=== PATIENT | female | born 1995 | race Hispanic/Latino ===

== ENCOUNTER 2017-11-24 23:32 | Emergency (ER) | payer OTHER, SELFPAY ==
[2017-11-25] MEDS ORDERED: ONDANSETRON 4 MG/2 ML VIAL ONE (00:32)
[2017-11-25 00:41] LABS: Absolute Lymphocytes (CBC) 1.4 K/uL (0.7-4.9); Absolute Monocytes 0.9 K/uL (0.1-1.3); Basophils % 0.4 % (0-1.3); Eosinophils % 0.5 % (0-4.4); Hematocrit 44.1 % (36.0-45.0); Lymphocytes % 7.4 % (15.3-44.8); MCV 88.5 fL (80-100); MPV 7.6 fL (7.6-11.3); Monocytes % 4.7 % (3.3-12.3); RBC Red Blood Cell Count 4.98 M/uL (3.86-4.86)
[2017-11-25 00:54] LABS: Urine Bacteria <20 /HPF (<20); Urine RBC <5 /HPF (NONE SEEN)
[2017-11-25 00:54] LABS: Potassium 3.8 mEq/L (3.6-5.0)
[2017-11-25 00:55] LABS: Urine Culture Reflex Order NOT NEEDED; Urine Mucus HEAVY /HPF (NONE SEEN)
[2017-11-25 01:00] LABS: Albumin 4.3 g/dL (3.2-5.5); Bilirubin Direct 0.1 mg/dL (0-0.2); Bilirubin Total 0.4 mg/dL (0.3-1.2); Protein, Total 8.1 g/dL (6.0-8.3)
[2017-11-25 01:21] LABS: Urine Blood 1+ (NEG); Urine Glucose NEGATIVE (NEG); Urine Protein NEGATIVE (NEG); Urine pH 6.5 (5.0-7.0)
--- NOTE | 2017-11-25 02:37 | ER ---
Nurse's Notes [facility] Name: Rolanda Santiago Age: 22 yrs Sex: Female : 1995 Arrival Date: 11/24/2017 Time: 23:33 Bed 23 Private MD: Diagnosis: Viral infection, unspecified Presentation: 11/24 23:47 Presenting complaint: Patient states: that she has swollen and sore throat, chills, fc weakness, nausea and vomiting, Also has diarrhea and fever. All started yesterday. Transition of care: patient was not received from another setting of care. Onset of symptoms was November 23, 2017. Risk Assessment: Do you want to hurt yourself or someone else? Patient reports no desire to harm self or others. Care prior to arrival: None. 23:47 Method Of Arrival: Ambulatory 23:47 Acuity: LAURA 3 23:52 Initial Sepsis Screen: Does the patient meet any 2 criteria? HR > 90 bpm. Yes Does the fc patient have a suspected source of infection? No. Patient's initial sepsis screen is negative. 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 - Social history:: Smoking status: Patient/guardian denies using tobacco, Patient uses alcohol, occasionally. Patient/guardian denies using street drugs. - Ebola Screening: : Patient negative for fever greater than or equal to 101.5 degrees Fahrenheit, and additional compatible Ebola Virus Disease symptoms Patient denies exposure to infectious person Patient denies travel to an Ebola-affected area in the 21 days before illness onset. Screenin/30 00:37 Abuse screen: Denies threats or abuse. Denies injuries from another. Nutritional lp1 screening: No deficits noted. Tuberculosis screening: No symptoms or risk factors identified. Fall Risk None identified. Assessment: 00:36 General: Appears in no apparent distress. Behavior is calm, cooperative, appropriate lp1 for age. Pain: Complains of pain in suprapubic area, head Pain currently is 8 out of 10 on a pain scale. Quality of pain is described as crampy. Neuro: Level of Consciousness is awake, alert, obeys commands. Cardiovascular: Patient's skin is warm and dry. Respiratory: Respiratory effort is even, unlabored, Breath sounds are clear bilaterally. GI: Abdomen is non-distended, Bowel sounds present X 4 quads. Reports diarrhea, nausea, vomiting. : Denies burning with urination. EENT: No signs and/or symptoms were reported regarding the EENT system. Derm: Skin is pink, warm \T\ dry. Musculoskeletal: Circulation, motion, and sensation intact. 01:30 Reassessment: Patient appears in no apparent distress at this time. Patient resting, lp1 eyes closed, respirations unlabored. 02:30 Reassessment: Patient appears in no apparent distress at this time. Patient is alert, lp1 oriented x 3, equal unlabored respirations, skin warm/dry/pink. Vital Signs: 11/24 23:49 BP 127 / 86; Pulse 112; Resp 16; Temp 98.7(O); Pulse Ox 99% on R/A; Weight 90.72 kg fc (R); Height 5 ft. 2 in. (157.48 cm) (R); Pain 9/10; 11/25 00:36 BP 126 / 79; Pulse 93; Resp 16; Pulse Ox 99% on R/A; lp1 02:30 BP 111 / 76; Pulse 85; Resp 18; Pulse Ox 99% on R/A; lp1 11/24 23:49 Body Mass Index 36.58 (90.72 kg, 157.48 cm) ED Course: 11/24 23:33 Patient arrived in ED. al2 23:48 Triage completed. fc 23:52 Arm band placed on Patient placed in an exam room, on a stretcher. fc 23:58 Irvin Padilla MD is Attending Physician. rn 23:58 Laureano Ortez PA is PHCP. jr8 11/25 00:06 Micheline Hayward, ANDRES is Primary Nurse. lp1 00:35 Urine collected: clean catch specimen, clear. Inserted saline lock: 20 gauge in right lp1 forearm, using aseptic technique. Blood collected. 00:36 Patient has correct armband on for positive identification. Placed in gown. Bed in low lp1 position. Call light in reach. Pulse ox on. NIBP on. 01:[address] via wheelchair. cw1 01:59 CT Abd/Pelvis - W/Contrast In Process Unspecified. EDMS 02:47 No provider procedures requiring assistance completed. IV discontinued, No lp1 redness/swelling at site. Pressure dressing applied. Administered Medications: 00:35 Drug: Zofran 4 mg Route: IVP; Site: right forearm; lp1 01:30 Follow up: Response: Nausea is decreased lp1 Outcome: 02:37 Discharge ordered by MD. sheffield 02:47 Discharged to home ambulatory. lp1 02:47 Condition: good 02:47 Discharge instructions given to patient, Instructed on discharge instructions, follow up and referral plans. medication usage, Demonstrated understanding of instructions, follow-up care, medications, Prescriptions given X 2. 02:48 Patient left the ED. lp1 Signatures: Dispatcher [employer] EDMS Mitzi Saenz, RN RN Irvin Lopes MD MD rn Woodley, Crystal cw1 Micheline Hayward RN RN lp1 Laureano Ortez PA PA jr8 Elena Márquez
--- NOTE | 2017-11-25 02:38 | EDPHYS ---
Physician Documentation [facility] Name: Rolanda Santiago Age: 22 yrs Sex: Female : 1995 Arrival Date: 11/24/2017 Time: 23:33 Bed 23 Private MD: ED Physician Irvin Padilla HPI: 11/25 00:06 This 22 yrs old Female presents to ER via Ambulatory with complaints of Fever, jr8 Vomiting. 00:06 The patient reports fever, not measured (subjective). Onset: The symptoms/episode jr8 began/occurred acutely, yesterday. Modifying factors: there are no obvious modifying factors. Associated signs and symptoms: Pertinent positives: abdominal pain, diarrhea, sore throat, vomiting. Severity of symptoms: At their worst the symptoms were moderate in the emergency department the symptoms are unchanged. The patient has not experienced similar symptoms in the past. The patient has not recently seen a physician. 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 - Social history:: Smoking status: Patient/guardian denies using tobacco, Patient uses alcohol, occasionally. Patient/guardian denies using street drugs. - Ebola Screening: : Patient negative for fever greater than or equal to 101.5 degrees Fahrenheit, and additional compatible Ebola Virus Disease symptoms Patient denies exposure to infectious person Patient denies travel to an Ebola-affected area in the 21 days before illness onset. ROS: 11/25 00:06 Eyes: Negative for injury, pain, redness, and discharge, Neck: Negative for injury, jr8 pain, and swelling, Cardiovascular: Negative for chest pain, palpitations, and edema, Respiratory: Negative for shortness of breath, cough, wheezing, and pleuritic chest pain, Back: Negative for injury and pain, MS/Extremity: Negative for injury and deformity, Skin: Negative for injury, rash, and discoloration, Neuro: Negative for headache, weakness, numbness, tingling, and seizure. Constitutional: Positive for fever. ENT: Positive for sore throat. Abdomen/GI: Positive for abdominal pain, nausea, vomiting, and diarrhea, Negative for abdominal distension, anorexia, dysphagia, hematemesis, black/tarry stool, rectal pain, rectal bleeding, bowel incontinence, flatulence. Exam: 00:06 Eyes: Pupils equal round and reactive to light, extra-ocular motions intact. Lids and jr8 lashes normal. Conjunctiva and sclera are non-icteric and not injected. Cornea within normal limits. Periorbital areas with no swelling, redness, or edema. Neck: Trachea midline, no thyromegaly or masses palpated, and no cervical lymphadenopathy. Supple, full range of motion without nuchal rigidity, or vertebral point tenderness. No Meningismus. Cardiovascular: Regular rate and rhythm with a normal S1 and S2. No gallops, murmurs, or rubs. Normal PMI, no JVD. No pulse deficits. Respiratory: Lungs have equal breath sounds bilaterally, clear to auscultation and percussion. No rales, rhonchi or wheezes noted. No increased work of breathing, no retractions or nasal flaring. Back: No spinal tenderness. No costovertebral tenderness. Full range of motion. Skin: Warm, dry with normal turgor. Normal color with no rashes, no lesions, and no evidence of cellulitis. MS/ Extremity: Pulses equal, no cyanosis. Neurovascular intact. Full, normal range of motion. Neuro: Awake and alert, GCS 15, oriented to person, place, time, and situation. Cranial nerves II-XII grossly intact. Motor strength 5/5 in all extremities. Sensory grossly intact. Cerebellar exam normal. Normal gait. 00:06 ENT: External ear(s): are unremarkable, Ear canal(s): are normal, clear, TM's: are normal, no evidence of bulging, no dullness, no erythema, no fluid levels, no hemotympanum, no rupture, normal bony landmarks, normal mobility, Nose: External nose: no obvious acute abnormality, Nasal septum: is midline, Nasal mucosa: moist, Turbinates: are normal, Mouth: Lips: moist, Oral mucosa: pink and intact, moist, Gums: pink, Tongue: is moist, Posterior pharynx: Airway: patent, Tonsils: bilaterally enlarged, with erythema, no exudate, no ulcerations, Uvula: midline, non-edematous, no erythema, swelling, is not appreciated, erythema, that is mild. 00:06 Abdomen/GI: Inspection: abdomen appears normal, Bowel sounds: active, all quadrants, Palpation: soft, in all quadrants, mild abdominal tenderness, in the suprapubic area, right lower quadrant and left lower quadrant, mass, is not appreciated, rebound tenderness, is not appreciated, voluntary guarding, is not appreciated, involuntary guarding, is not appreciated, no appreciated organomegaly, Indicators: McBurney's point is not tender, Bose's sign is negative, Rovsing's sign is negative, Liver: no appreciated palpable abnormalities, tenderness, is not appreciated. Vital Signs: 11/24 23:49 BP 127 / 86; Pulse 112; Resp 16; Temp 98.7(O); Pulse Ox 99% on R/A; Weight 90.72 kg fc (R); Height 5 ft. 2 in. (157.48 cm) (R); Pain 9/10; 11/25 00:36 BP 126 / 79; Pulse 93; Resp 16; Pulse Ox 99% on R/A; lp1 02:30 BP 111 / 76; Pulse 85; Resp 18; Pulse Ox 99% on R/A; lp1 11/24 23:49 Body Mass Index 36.58 (90.72 kg, 157.48 cm) fc MDM: 11/24 23:58 Patient medically screened. jr8 11/25 02:36 Data reviewed: vital signs, nurses notes, lab test result(s), radiologic studies, CT jr8 scan, and as a result, I will discharge patient. Data interpreted: Pulse oximetry: on room air is 99 %. Interpretation: normal. Counseling: I had a detailed discussion with the patient and/or guardian regarding: the historical points, exam findings, and any diagnostic results supporting the discharge/admit diagnosis, lab results, radiology results, the need for outpatient follow up, a family practitioner, to return to the emergency department if symptoms worsen or persist or if there are any questions or concerns that arise at home. 11/25 00:05 Order name: Urine Microscopic Only; Complete Time: :8 11/25 00:05 Order name: Basic Metabolic Panel; Complete Time: 8 11/25 00:05 Order name: CBC with Diff; Complete Time: 8 11/25 00:05 Order name: Creatinine for Radiology; Complete Time: 01:8 11/25 00:05 Order name: Hepatic Function; Complete Time: : jr8 11/25 00:05 Order name: Lipase; Complete Time: :11/25 00:05 Order name: Urine Test (obtain specimen); Complete Time: 00:35 8 11/25 00:05 Order name: IV Saline Lock; Complete Time: 00:35 jr8 11/25 00:05 Order name: Strep; Complete Time: : jr8 11/25 00:35 Order name: Urine Dipstick--Ancillary (enter results); Complete Time: eb 11/25 00:35 Order name: Urine --Ancillary (enter results); Complete Time: : eb 11/25 00:52 Order name: Throat Culture [facility] 11/25 01:05 Order name: CT Abd/Pelvis - W/Contrast jr 11/25 00:05 Order name: Labs collected and sent; Complete Time: 00:8 11/25 00:05 Order name: Urine Dipstick-Ancillary (obtain specimen); Complete Time: 00:36 Administered Medications: 00:35 Drug: Zofran 4 mg Route: IVP; Site: right forearm; lp1 01:30 Follow up: Response: Nausea is decreased lp1 Disposition: 06:52 Co-signature as Attending Physician, Irvin Padilla MD. rn Disposition: 11/25/17 02:37 Discharged to Home. Impression: Viral infection, unspecified. - Condition is Stable. - Discharge Instructions: Viral Infections. - Prescriptions for Zofran 4 mg Oral Tablet - take 1 tablet by ORAL route every 12 hours As needed; 20 tablet. Tessalon Perles 100 mg Oral Capsule - take 1 capsule by ORAL route every 8 hours As needed; 15 capsule. - Medication Reconciliation Form, Thank You Letter, Antibiotic Education, Prescription Opioid Use form. - Follow up: Private Physician; When: 2 - 3 days; Reason: Recheck today's complaints, Continuance of care, Re-evaluation by your physician. - Problem is new. - Symptoms have improved. - Notes: Rest Push fluids Signatures: Dispatcher [employer] EDKY Mitzi Saenz RN RN fc Nieto, Roman, MD MD rn Pena, Laura, RN RN lp1 Laureano Ortez PA PA jr8 Corrections: (The following items were deleted from the chart) 02:48 02:37 11/25/2017 02:37 Discharged to Home. Impression: Viral infection, unspecified. lp1 Condition is Stable. Forms are Medication Reconciliation Form, Thank You Letter, Antibiotic Education, Prescription Opioid Use. Follow up: Private Physician; When: 2 - 3 days; Reason: Recheck today's complaints, Continuance of care, Re-evaluation by your physician. Problem is new. Symptoms have improved. jr8
--- NOTE | 2017-11-25 07:23 | RAD REPORT ---
EXAM DESCRIPTION: CT - Abdomen Pelvis W Contrast - 11/25/2017 6:14 am CLINICAL HISTORY: Abdominal pain with nausea. Vomiting COMPARISON: 2013 TECHNIQUE: Computed axial tomography of the abdomen pelvis was obtained. 100 cc Isovue-300 was admin istered intravenously. Oral contrast was not requested which limits evaluation of bowel. A preliminary report was generated by [employer] and reviewed prior to this dictation All CT scans are performed using dose optimization technique as appropriate and may include automated exposure control or mA/KV adjustment according to patient size. FINDINGS: The liver, spleen, pancreas, adrenal and kidneys appear unremarkable. There is no evidence of diverticulitis. The appendix is normal A 15 millimeter right ovarian cyst is irregularly shaped and likely has recently ruptured. There is a small amount of adjacent free fluid. IMPRESSION: A 15 millimeter right ovarian cyst is irregularly shaped and likely has recently rupture d. There is a small amount of adjacent free fluid.
== END 2017-11-25 02:48 | disposition home or self-care (01) ==
LOC: ER 23:32
DX: B34.9 Viral infection, unspecified (principal)
CPT/HCPCS: 36415; 74177; 80048; 80076; 81003; 81015; 81025; 83690; 85025; 87070; 87081; 96374; 99284; J2405; Q9967

== ENCOUNTER 2017-12-14 19:45 | Emergency (ER) | payer SELFPAY ==
[2017-12-14] MEDS ORDERED: NA CHLORIDE 0.9% 1,000 ML ONE (20:07)
[2017-12-14 20:22] LABS: Absolute Lymphocytes (CBC) 2.8 K/uL (0.7-4.9); Absolute Monocytes 0.8 K/uL (0.1-1.3); Absolute Neutrophil 8.9 K/uL (1.8-8.0); Basophils % 0.4 % (0-1.3); Eosinophils % 1.7 % (0-4.4); Hematocrit 39.8 % (36.0-45.0); Lymphocytes % 22.1 % (15.3-44.8); MCH 29.6 pg (27.0-35.0); MCV 87.9 fL (80-100); MPV 7.9 fL (7.6-11.3); Monocytes % 6.3 % (3.3-12.3); RBC Red Blood Cell Count 4.53 M/uL (3.86-4.86)
[2017-12-14 20:35] LABS: Bicarbonate 24 mEq/L (21-31); Glucose Level 96 mg/dL (65-120); Potassium 3.5 mEq/L (3.6-5.0); Sodium Level 136 mEq/L (135-145)
[2017-12-14 20:36] LABS: BUN Blood Urea Nitrogen 12 mg/dL (6-20)
--- NOTE | 2017-12-14 20:45 | RAD REPORT ---
EXAM DESCRIPTION: US - Transvaginal Study Probe - 12/14/2017 8:36 pm CLINICAL HISTORY: ABD CRAMPING, COMPARISON: TRANSVAGINAL STUDY PROBE dated 05/17/2014; Abdomen Pelvis W Contrast dated 11/25/2017 FINDINGS: A single oval-shaped gestational sac is seen within the uterus. Within the sac is a yolk s ac measuring 3 mm. No embryo is yet seen. Normal decidual reaction is seen around the sac Maternal adnexa showed no worrisome finding. Normal Doppler flow is seen to both ovaries. IMPRESSION: Single live early intrauterine gestation as detailed above.Follow-up study may be consid ered in 10-12 days for followup surveillance.
[2017-12-14] MEDS ORDERED: POTASSIUM 25 MEQ EFFERV TAB ONE (21:36)
--- NOTE | 2017-12-14 22:18 | ER ---
Nurse's Notes [facility] Name: Rolanda Santiago Age: 22 yrs Sex: Female : 1995 Arrival Date: 12/14/2017 Time: 19:47 Bed 13 Private MD: Diagnosis: related conditions, unspecified, first trimester-Lower Abdomen pain Presentation: 12/14 19:50 Presenting complaint: Patient states: "I have been cramping in my lower stomach, I bs1 spotted a couple days ago and I have been feeling nauseous and vomiting.". Transition of care: patient was not received from another setting of care. Onset of symptoms was December 11, 2017. Risk Assessment: Do you want to hurt yourself or someone else? Patient reports no desire to harm self or others. Initial Sepsis Screen: Does the patient meet any 2 criteria? No. Patient's initial sepsis screen is negative. Does the patient have a suspected source of infection? No. Patient's initial sepsis screen is negative. Care prior to arrival: None. 19:50 Method Of Arrival: Ambulatory bs1 19:50 Acuity: LAURA 3 bs1 Triage Assessment: 22:00 General: Behavior is calm, cooperative. 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 - Social history:: Smoking status: Patient/guardian denies using tobacco. - Ebola Screening: : Patient negative for fever greater than or equal to 101.5 degrees Fahrenheit, and additional compatible Ebola Virus Disease symptoms Patient denies exposure to infectious person. Screenin:22 Abuse screen: Denies threats or abuse. Denies injuries from another. Nutritional bs1 screening: No deficits noted. Tuberculosis screening: No symptoms or risk factors identified. Fall Risk None identified. Assessment: 20:19 General: Appears in no apparent distress. uncomfortable. Pain: Complains of pain in bs1 bilateral lower abdomen Pain radiates to bilateral flank. Neuro: Level of Consciousness is awake, alert, obeys commands, Oriented to person, place, time, situation, Appropriate for age. Cardiovascular: Denies chest pain, shortness of breath, Heart tones S1 S2 present Capillary refill < 3 seconds Patient's skin is warm and dry. Respiratory: Airway is patent Trachea midline Respiratory effort is even, unlabored, Breath sounds are clear bilaterally. GI: Abdomen is round non-distended, Bowel sounds present X 4 quads. Abdomen is tender to palpation in right lower quadrant and left lower quadrant Reports lower abdominal pain, cramping, nausea, vomiting, Patient currently denies diarrhea. : Reports pain in bilateral flank(s). EENT: No signs and/or symptoms were reported regarding the EENT system. Derm: Skin is intact, Skin is pink, warm \\T\\ dry. normal. Musculoskeletal: Circulation, motion, and sensation intact. Capillary refill < 3 seconds, Range of motion:. Musculoskeletal: Range of motion: intact in all extremities. 21:45 Reassessment: Patient appears in no apparent distress at this time. Patient and/or bs1 family updated on plan of care and expected duration. Pain level reassessed. Patient is alert, oriented x 3, equal unlabored respirations, skin warm/dry/pink. 23:00 Reassessment: No changes from previously documented assessment. Patient and/or family bs1 updated on plan of care and expected duration. Pain level reassessed. Patient is alert, oriented x 3, equal unlabored respirations, skin warm/dry/pink. Patient states feeling better. Patient states symptoms have improved. 12/15 00:00 Reassessment: Patient appears in no apparent distress at this time. Patient is alert, bs1 oriented x 3, equal unlabored respirations, skin warm/dry/pink. Patient denies pain at this time. 00:05 Reassessment: No reaction noted from Rhogam injection. bs1 Vital Signs: 12/14 20:17 BP 113 / 91; Pulse 79; Resp 15; Temp 98.8(O); Pulse Ox 100% on R/A; Weight 101.2 kg; bs1 Height 5 ft. 3 in. (160.02 cm); Pain 5/10; 21:00 BP 112 / 68; Pulse 78; Resp 16; Pulse Ox 100% on R/A; bs1 22:00 BP 116 / 82; Pulse 74; Resp 14; Pulse Ox 100% on R/A; bs1 23:00 BP 114 / 66; Pulse 80; Resp 16; Temp 98(O); Pulse Ox 100% on R/A; Pain 0/10; bs1 12/15 00:00 BP 114 / 63; Pulse 72; Resp 15; Temp 98(O); Pulse Ox 99% on R/A; bs1 12/14 20:17 Body Mass Index 39.52 (101.20 kg, 160.02 cm) bs1 ED Course: 12/14 19:47 Patient arrived in ED. am2 19:52 Chicho Gilmore MD is Attending Physician. nohelia 19:53 Chicho Merrill PA is PHCP. cp 20:00 Patient has correct armband on for positive identification. Placed in gown. Bed in low bs1 position. Call light in reach. Side rails up X 1. Pulse ox on. NIBP on. 20:00 Inserted saline lock: 22 gauge in right antecubital area, using aseptic technique. bs1 Blood collected. 20:12 Melissa Jenkins, RN is Primary Nurse. bs1 20:16 Triage completed. bs1 20:22 Arm band placed on right wrist. bs1 20:36 Ultrasound completed. Patient tolerated well. aa4 20:36 US Transvaginal Study (Probe) In Process Unspecified. EDMS 12/15 00:06 No provider procedures requiring assistance completed. IV discontinued, bleeding bs1 controlled, No redness/swelling at site. Pressure dressing applied. Administered Medications: 12/14 20:13 Drug: NS 0.9% 1000 ml Route: IV; Rate: 1 bolus; Site: right antecubital; jd3 12/15 00:12 Follow up: IV Status: Completed infusion bs1 12/14 21:41 Drug: Potassium Effervescent Tablet 25 mEq Route: PO; bs1 23:34 Follow up: Response: No adverse reaction bs1 23:32 Drug: Rho D Immune Globulin 300 mcg Route: IM; Site: right deltoid; bs1 12/15 00:11 Follow up: Response: No adverse reaction bs1 Outcome: 12/14 22:18 Discharge ordered by . cp 12/15 00:08 Discharged to home ambulatory. bs1 Condition: stable Discharge instructions given to patient, Instructed on discharge instructions, follow up and referral plans. medication usage, Demonstrated understanding of instructions, follow-up care, medications, Prescriptions given X 1. 00:11 Patient left the ED. bs1 Signatures: Dispatcher [employer] EDChicho Nicole MD MD cha Frazier, Amanda aa4 Chicho Merrill PA PA cp Moreno, Amanda am2 Ryan Plata RN RN jd3 Melissa Jenkins RN RN bs1 Corrections: (The following items were deleted from the chart) 12/14 23:39 20:17 BP 113 / 91; Pulse 79bpm; Resp 15bpm; Pulse Ox 100% RA; Temp 98.8F Oral; Pain bs1 11/05; bs1
--- NOTE | 2017-12-14 22:18 | EDPHYS ---
Physician Documentation [facility] Name: Rolanda Santiago Age: 22 yrs Sex: Female : 1995 Arrival Date: 12/14/2017 Time: 19:47 Bed 13 Private MD: ED Physician Chicho Gilmore HPI: 12/14 20:02 This 22 yrs old Female presents to ER via Unassigned with complaints of cp Abdominal Pain - Preg unknown gestation. 20:02 The patient presents with abdominal pain in the lower abdomen. Onset: The cp symptoms/episode began/occurred 3 day(s) ago. 21:56 Patient denies any current spotting but reports vaginal spotting few days ago. 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 - Social history:: Smoking status: Patient/guardian denies using tobacco. - Ebola Screening: : Patient negative for fever greater than or equal to 101.5 degrees Fahrenheit, and additional compatible Ebola Virus Disease symptoms Patient denies exposure to infectious person. ROS: 20:05 Constitutional: Negative for body aches, chills, fever, poor PO intake. cp 20:05 Eyes: Negative for injury, pain, redness, and discharge. cp 20:05 Cardiovascular: Negative for chest pain, edema, palpitations. cp 20:05 Respiratory: Negative for cough, shortness of breath, wheezing. 20:05 Abdomen/GI: Positive for abdominal pain, Negative for vomiting, diarrhea, constipation, black/tarry stool, rectal bleeding. 20:05 Back: Negative for pain at rest, pain with movement. 20:05 Skin: Negative for cellulitis, rash. 20:05 Neuro: Negative for altered mental status, headache, weakness. 20:05 All other systems are negative. Exam: 20:15 Constitutional: The patient appears in no acute distress, alert, awake, non-toxic, well cp developed, well nourished. 20:15 Head/Face: Normocephalic, atraumatic. cp 20:15 Eyes: Periorbital structures: appear normal, Pupils: equal, round, and reactive to light and accomodation, Conjunctiva: normal, no exudate, no injection, Sclera: no appreciated abnormality, Lids and lashes: appear normal, bilaterally. 20:15 ENT: External ear(s): are unremarkable, Nose: is normal, Mouth: is normal, Posterior pharynx: is normal, airway is patent, no erythema, no exudate. 20:15 Neck: ROM/movement: is normal, is supple, without pain, no range of motions limitations, no meningismus, no nuchal rigidity. 20:15 Chest/axilla: Inspection: normal, Palpation: is normal, no crepitus, no tenderness. 20:15 Cardiovascular: Rate: normal, Rhythm: regular. 20:15 Respiratory: the patient does not display signs of respiratory distress, Respirations: cp normal, labored breathing, is not present, accessory muscle usage, is absent, Breath sounds: are clear throughout, no decreased breath sounds, no stridor, no wheezing. 20:15 Abdomen/GI: Inspection: abdomen appears normal, Bowel sounds: active, all quadrants, cp Palpation: abdomen is soft and non-tender, in all quadrants, rebound tenderness, is not appreciated, voluntary guarding, is not appreciated, involuntary guarding, is not appreciated. 20:15 Back: pain, is absent, ROM is normal. 20:15 : CVA tenderness, is absent. 20:15 Skin: cellulitis, is not appreciated, no rash present. Vital Signs: 20:17 BP 113 / 91; Pulse 79; Resp 15; Temp 98.8(O); Pulse Ox 100% on R/A; Weight 101.2 kg; bs1 Height 5 ft. 3 in. (160.02 cm); Pain 5/10; 21:00 BP 112 / 68; Pulse 78; Resp 16; Pulse Ox 100% on R/A; bs1 22:00 BP 116 / 82; Pulse 74; Resp 14; Pulse Ox 100% on R/A; bs1 23:00 BP 114 / 66; Pulse 80; Resp 16; Temp 98(O); Pulse Ox 100% on R/A; Pain 0/10; bs1 12/15 00:00 BP 114 / 63; Pulse 72; Resp 15; Temp 98(O); Pulse Ox 99% on R/A; bs1 12/14 20:17 Body Mass Index 39.52 (101.20 kg, 160.02 cm) bs1 MDM: 12/14 19:52 Patient medically screened. [facility] 22:15 Data reviewed: vital signs, nurses notes, lab test result(s), radiologic studies, cp ultrasound, and as a result, I will give Rhogam and discharge to home for continued monitoring. 22:15 Differential diagnosis: appendicitis, cholecystitis, Cholelithiasis, Ectopic , cp gastritis, non-specific abd pain, Ovarian Torsion, Ureterolithiasis, urinary tract infection, threatened miscarriage. 12/14 19:53 Order name: Quantitative Hcg; Complete Time: 21:13 [facility] 12/14 21:13 Interpretation: HCGQ 8039.0; Reviewed. 12/14 19:53 Order name: Abo/rh Typing [facility] 12/14 21:48 Interpretation: Reviewed. 12/14 19:53 Order name: Basic Metabolic Panel; Complete Time: 21:13 [facility] 12/14 21:14 Interpretation: Normal except: K 3.5. 12/14 19:53 Order name: CBC with Diff; Complete Time: 20:37 [facility] 12/14 20:37 Interpretation: Normal except: WBC 12.8; NEUT A 8.9. 12/14 19:53 Order name: Urine Culture [facility] 12/14 20:05 Order name: Urine Dipstick--Ancillary (enter results) 12/14 20:06 Order name: Urine --Ancillary (enter results) 12/14 22:11 Order name: Rh Typing [facility] 12/14 22:11 Order name: Antibody Screen [facility] 12/14 19:53 Order name: Urine Test (obtain specimen); Complete Time: 20:03 [facility] 12/14 19:53 Order name: IV Saline Lock; Complete Time: 20:14 [facility] 12/14 19:53 Order name: Labs collected and sent; Complete Time: 20:14 [facility] 12/14 19:53 Order name: NPO; Complete Time: 20:03 [facility] 12/14 19:53 Order name: Urine Dipstick-Ancillary (obtain specimen); Complete Time: 20:03 [facility] 12/14 19:53 Order name: US Transvaginal Study (Probe); Complete Time: 20:54 [facility] 12/14 22:11 Order name: Fetalscreen [facility] 12/14 22:11 Order name: Cord Rh type EDMS 12/14 22:11 Order name: Rhogam EDMS Administered Medications: 20:13 Drug: NS 0.9% 1000 ml Route: IV; Rate: 1 bolus; Site: right antecubital; jd3 12/15 00:12 Follow up: IV Status: Completed infusion bs1 12/14 21:41 Drug: Potassium Effervescent Tablet 25 mEq Route: PO; bs1 23:34 Follow up: Response: No adverse reaction bs1 23:32 Drug: Rho D Immune Globulin 300 mcg Route: IM; Site: right deltoid; bs1 12/15 00:11 Follow up: Response: No adverse reaction bs1 Disposition: 06:47 Co-signature as Attending Physician, Chicho Gilmore MD I agree with the assessment and [facility] plan of care. Disposition: 12/14/17 22:18 Discharged to Home. Impression: related conditions, unspecified, first trimester - Lower Abdomen pain. - Condition is Stable. - Discharge Instructions: Abdominal Pain During , Medicines During , First Trimester of . - Prescriptions for Vitamin 27- 0.8 mg Oral Tablet - take 1 tablet by ORAL route once daily; 60 tablet. - Medication Reconciliation Form, Thank You Letter, Antibiotic Education, Prescription Opioid Use form. - Follow up: Private Physician; When: 1 week; Reason: Recheck today's complaints. - Problem is new. - Symptoms have improved. Signatures: Dispatcher [employer] Chicho Abbasi MD MD cha Page, Corey, PA PA cp Davies, Jonathon, RN RN Melissa Jeff RN RN bs1 Corrections: (The following items were deleted from the chart) 12/14 20:37 20:37 Normal except: WBC 12.8. cp cp 22:10 22:00 RHOGAM+BB.LAB.BRZ ordered. EDWI EDWI 22:10 22:06 Rh Typing ordered. EDWI EDMS 22:10 22:06 Antibody Screen ordered. EDWI EDMS 22:10 22:06 Fetalscreen ordered. EDWI EDMS 22:10 22:06 Cord Rh type ordered. EDWI EDWI 12/15 00:11 12/14 22:18 12/14/2017 22:18 Discharged to Home. Impression: related bs1 conditions, unspecified, first trimester - Lower Abdomen pain. Condition is Stable. Forms are Medication Reconciliation Form, Thank You Letter, Antibiotic Education, Prescription Opioid Use. Follow up: Private Physician; When: 1 week; Reason: Recheck today's complaints. Problem is new. Symptoms have improved. cp
[2017-12-15 00:25] LABS: Urine Specific Gravity >1.030 (1.005-1.030)
[2017-12-15 00:26] LABS: Urine Blood TRACE (NEG); Urine Glucose NEGATIVE (NEG); Urine Protein NEGATIVE (NEG); Urine Specific Gravity >1.030 (1.005-1.030)
== END 2017-12-15 00:11 | disposition home or self-care (01) ==
LOC: ER 19:45
DX: O26.899 Other specified pregnancy related conditions, unspecified trimester (principal); R10.30 Lower abdominal pain, unspecified
CPT/HCPCS: 36415; 76830; 80048; 81003; 81025; 84702; 85025; 86850; 86900; 86901; 87086; 87088; 96360; 96361; 96372; 99284; J2790; J7030

== ENCOUNTER 2018-01-23 23:14 | Emergency (ER) | payer OTHER, SELFPAY ==
[2018-01-24 00:09] LABS: Absolute Lymphocytes (CBC) 2.2 K/uL (0.7-4.9); Absolute Monocytes 0.7 K/uL (0.1-1.3); Absolute Neutrophil 7.8 K/uL (1.8-8.0); Basophils % 0.2 % (0-1.3); Eosinophils % 1.8 % (0-4.4); Hematocrit 37.2 % (36.0-45.0); MCH 30.5 pg (27.0-35.0); MPV 7.6 fL (7.6-11.3); Monocytes % 6.5 % (3.3-12.3); RBC Red Blood Cell Count 4.18 M/uL (3.86-4.86)
[2018-01-24 00:49] LABS: Urine Blood 2+ (NEG); Urine Glucose NEGATIVE (NEG); Urine Protein TRACE (NEG); Urine Specific Gravity >1.030 (1.005-1.030)
[2018-01-24 01:20] LABS: BUN Blood Urea Nitrogen 15 mg/dL (7-18); Bicarbonate 25 mmol/L (21-32); Glucose Level 106 mg/dL (74-106); HCG, Quantitative 117510 mIU/mL (1-3); Potassium 3.9 mmol/L (3.5-5.1); Sodium Level 139 mmol/L (136-145)
--- NOTE | 2018-01-24 02:06 | EDPHYS ---
Physician Documentation [facility] Name: Rolanda Santiago Age: 22 yrs Sex: Female : 1995 Arrival Date: 01/23/2018 Time: 23:15 Bed 16 Private MD: ED Physician Chicho Gilmore HPI: 01/24 00:53 This 22 yrs old Female presents to ER via Ambulatory with complaints of pm1 Vaginal Bleeding, 13 weeks preg. 00:53 The patient presents with vaginal bleeding that is light, with no clots, with wiping. pm1 Onset: The symptoms/episode began/occurred 3 hour(s) ago. Modifying factors: The symptoms are alleviated by nothing, the symptoms are aggravated by nothing. Associated signs and symptoms: Pertinent positives: cramping, Pertinent negatives: dysuria, fever, nausea, vomiting. Severity of symptoms: in the emergency department the symptoms have improved. The patient has experienced a previous episode, vaginal bleeding with this at 12/15/2017. Patient received RhoGAM at that time . 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 - Social history:: Smoking status: Patient uses tobacco products, denies chronic smoking, but will smoke occasionally. - Ebola Screening: : No symptoms or risks identified at this time. ROS: 01/24 00:55 Positive for vaginal bleeding, Negative for burning with urination, difficulty pm1 urinating, vaginal discharge. Constitutional: Negative for fever, chills, and weight loss, Eyes: Negative for injury, pain, redness, and discharge, ENT: Negative for injury, pain, and discharge, Neck: Negative for injury, pain, and swelling, Cardiovascular: Negative for chest pain, palpitations, and edema, Respiratory: Negative for shortness of breath, cough, wheezing, and pleuritic chest pain. Back: Negative for injury and pain, MS/Extremity: Negative for injury and deformity, Skin: Negative for injury, rash, and discoloration, Neuro: Negative for headache, weakness, numbness, tingling, and seizure. Abdomen/GI: Positive for abdominal cramps, of the suprapubic area, Negative for nausea, vomiting, and diarrhea. Exam: 00:55 Constitutional: This is a well developed, well nourished patient who is awake, alert, pm1 and in no acute distress. Head/Face: Normocephalic, atraumatic. Eyes: Pupils equal round and reactive to light, extra-ocular motions intact. Lids and lashes normal. Conjunctiva and sclera are non-icteric and not injected. Cornea within normal limits. Periorbital areas with no swelling, redness, or edema. ENT: Nares patent. No nasal discharge, no septal abnormalities noted. Tympanic membranes are normal and external auditory canals are clear. Oropharynx with no redness, swelling, or masses, exudates, or evidence of obstruction, uvula midline. Mucous membranes moist. Neck: Trachea midline, no thyromegaly or masses palpated, and no cervical lymphadenopathy. Supple, full range of motion without nuchal rigidity, or vertebral point tenderness. No Meningismus. Chest/axilla: Normal chest wall appearance and motion. Nontender with no deformity. No lesions are appreciated. Cardiovascular: Regular rate and rhythm with a normal S1 and S2. No gallops, murmurs, or rubs. Normal PMI, no JVD. No pulse deficits. Respiratory: Lungs have equal breath sounds bilaterally, clear to auscultation and percussion. No rales, rhonchi or wheezes noted. No increased work of breathing, no retractions or nasal flaring. 00:55 Back: No spinal tenderness. No costovertebral tenderness. Full range of motion. Skin: Warm, dry with normal turgor. Normal color with no rashes, no lesions, and no evidence of cellulitis. MS/ Extremity: Pulses equal, no cyanosis. Neurovascular intact. Full, normal range of motion. 00:55 Abdomen/GI: Inspection: abdomen appears normal, Bowel sounds: normal, Palpation: soft, mild abdominal tenderness, in the suprapubic area. 00:55 Neuro: Orientation: is normal, Motor: is normal, moves all fours. Vital Signs: 01/23 23:38 BP 126 / 82; Pulse 84; Resp 16; Temp 98.0; Pulse Ox 97% on R/A; Weight 95.25 kg; Height aa1 5 ft. 3 in. (160.02 cm); Pain 4/10; 01/24 00:32 BP 132 / 84; Pulse 83; Resp 18; Pulse Ox 100% ; Pain 0/10; ao 02:02 BP 124 / 84; Pulse 86; Resp 16; Pulse Ox 100% on R/A; Pain 0/10; ao 01/23 23:38 Body Mass Index 37.20 (95.25 kg, 160.02 cm) aa1 MDM: 01/23 23:29 Patient medically screened. [facility] 01/24 00:53 ED course: patient with IUP on U/S on 12/15/2017. pm1 00:56 Data reviewed: vital signs. Data interpreted: Pulse oximetry: on room air is 100 %. pm1 Interpretation: normal. 01:43 Physician consultation: Una Gamble MD was called at 01:43, was contacted at 01:43, pm1 regarding Necessity of administration of RhoGAM: Recommends administration of RhoGAM to the patient since it lasts about 1 month and the patient was last given RhoGAM 40 days ago. 02:04 Counseling: I had a detailed discussion with the patient and/or guardian regarding: the pm1 historical points, exam findings, and any diagnostic results supporting the discharge/admit diagnosis, lab results, the need for outpatient follow up, to return to the emergency department if symptoms worsen or persist or if there are any questions or concerns that arise at home. 01/23 23:31 Order name: Quantitative Hcg; Complete Time: 01:22 pm01/23 23:31 Order name: Abo/rh Typing [facility] 01/23 23:31 Order name: Basic Metabolic Panel; Complete Time: 01:22 pm01/23 23:31 Order name: CBC with Diff; Complete Time: 00:52 pm1 01/24 00:41 Order name: Urine Dipstick--Ancillary (enter results); Complete Time: 00:52 ms 01/24 00:41 Order name: Urine --Ancillary (enter results); Complete Time: 00:52 or 01/24 02:16 Order name: Rh Typing [facility] 01/24 02:16 Order name: Antibody Screen [facility] 01/24 02:16 Order name: Fetalscreen [facility] 01/23 23:31 Order name: Urine Test (obtain specimen); Complete Time: 02:01 pm 01/23 23:31 Order name: IV Saline Lock; Complete Time: 00:00 pm1 01/23 23:31 Order name: Labs collected and sent; Complete Time: 00:00 pm1 01/23 23:31 Order name: NPO; Complete Time: 00:34 pm1 01/23 23:31 Order name: Urine Dipstick-Ancillary (obtain specimen); Complete Time: 02:01 pm1 01/23 23:42 Order name: FHT's; Complete Time: 02:00 pm1 01/24 02:16 Order name: Cord Rh type EDMS 01/24 02:16 Order name: Rhogam EDMS 01/24 02:53 Order name: Antibody Identification EDMS Administered Medications: 03:24 Drug: RhoGAM (Human) 300 mcg Route: IM; Site: left deltoid; ao 03:39 Follow up: Response: No adverse reaction aa1 Disposition: 01/24/18 02:05 Discharged to Home. Impression: Threatened . - Condition is Stable. - Discharge Instructions: Threatened Miscarriage, Pelvic Rest. - Medication Reconciliation Form, Thank You Letter form. - Follow up: Emergency Department; When: As needed; Reason: Worsening of condition. Follow up: Private Physician; When: 2 - 3 days; Reason: Recheck today's complaints, Continuance of care, Re-evaluation by your physician. - Problem is new. - Symptoms have improved. Addendum: 01/25/2018 10:50 Co-signature as Attending Physician, Chicho Gilmore MD I agree with the assessment and c bustos plan of care. Signatures: Dispatcher [employer] Daria Stark RN RN aa1 Chicho Gilmore MD MD cha Ortiz, Alex RN RN Charly Romero NP [facility] [employer] pm1 Corrections: (The following items were deleted from the chart) 01/24 02:16 02:04 RHOGAM+BB.LAB.BRZ ordered. EDMS EDMS 02:16 02:05 Rh Typing ordered. EDMS EDMS 02:16 02:05 Antibody Screen ordered. EDMS EDMS 02:16 02:05 Fetalscreen ordered. EDMS EDMS 02:16 02:05 Cord Rh type ordered. EDMS EDMS 03:40 02:05 01/24/2018 02:05 Discharged to Home. Impression: Threatened . Condition aa1 is Stable. Forms are Medication Reconciliation Form, Thank You Letter, Antibiotic Education, Prescription Opioid Use. Follow up: Emergency Department; When: As needed; Reason: Worsening of condition. Follow up: Private Physician; When: 2 - 3 days; Reason: Recheck today's complaints, Continuance of care, Re-evaluation by your physician. Problem is new. Symptoms have improved. pm1
--- NOTE | 2018-01-24 02:06 | ER ---
Nurse's Notes [facility] Name: Rolanda Santiago Age: 22 yrs Sex: Female : 1995 Arrival Date: 01/23/2018 Time: 23:15 Bed 16 Private MD: Diagnosis: Threatened Presentation: 01/23 23:35 Presenting complaint: Patient states: she is approx 13 weeks and started aa1 having vaginal bleeding this evening. Reports light pink bleeding noted when she wipes. States she has not been seen by an AUDIO INSTALLER for this bc she is waiting for her Medicaid. Transition of care: patient was not received from another setting of care. Onset of symptoms was January 23, 2018. Risk Assessment: Do you want to hurt yourself or someone else? Patient reports no desire to harm self or others. Initial Sepsis Screen: Does the patient meet any 2 criteria? No. Patient's initial sepsis screen is negative. Does the patient have a suspected source of infection? No. Patient's initial sepsis screen is negative. Care prior to arrival: None. 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 - Social history:: Smoking status: Patient uses tobacco products, denies chronic smoking, but will smoke occasionally. - Ebola Screening: : No symptoms or risks identified at this time. Screenin/29 00:24 Abuse screen: Denies threats or abuse. Denies injuries from another. Nutritional ao screening: No deficits noted. Tuberculosis screening: No symptoms or risk factors identified. Fall Risk None identified. Assessment: 00:00 General: Appears in no apparent distress. comfortable, Behavior is calm, cooperative, ao appropriate for age. Pain: Unable to use pain scale. FLACC scale score is 0 out of 10. Neuro: Level of Consciousness is awake, alert, obeys commands, Oriented to person, place, time, situation, Moves all extremities. Full function Speech is normal, Facial symmetry appears normal. Cardiovascular: Capillary refill < 3 seconds Patient's skin is warm and dry. Respiratory: Airway is patent Respiratory effort is even, unlabored, Respiratory pattern is regular, symmetrical. GI: Abdomen is non-distended. : No signs and/or symptoms were reported regarding the genitourinary system. Reports vaginal bleeding that is spotty. EENT: No signs and/or symptoms were reported regarding the EENT system. Derm: No signs and/or symptoms reported regarding the dermatologic system. Musculoskeletal: Circulation, motion, and sensation intact. Range of motion:. 00:32 Reassessment: Patient appears in no apparent distress at this time. Patient and/or ao family updated on plan of care and expected duration. Pain level reassessed. 02:02 Reassessment: Patient appears in no apparent distress at this time. Patient and/or ao family updated on plan of care and expected duration. Pain level reassessed. Patient is alert, oriented x 3, equal unlabored respirations, skin warm/dry/pink. Waiting on order for RhoGAM IM. 03:00 Reassessment: Patient appears in no apparent distress at this time. Patient and/or aa1 family updated on plan of care and expected duration. Pain level reassessed. Patient is alert, oriented x 3, equal unlabored respirations, skin warm/dry/pink. Waiting for RhoGAM injection from lab. 03:25 Reassessment: Patient appears in no apparent distress at this time. Patient and/or aa1 family updated on plan of care and expected duration. Pain level reassessed. Patient is alert, oriented x 3, equal unlabored respirations, skin warm/dry/pink. RhoGAM injection given, will d/c after 15 min shot time. Discussed d/c \T\ f/u instructions with pt; denies questions or concerns at this time. Vital Signs: 01/23 23:38 BP 126 / 82; Pulse 84; Resp 16; Temp 98.0; Pulse Ox 97% on R/A; Weight 95.25 kg; Height aa1 5 ft. 3 in. (160.02 cm); Pain 410; 01/24 00:32 BP 132 / 84; Pulse 83; Resp 18; Pulse Ox 100% ; Pain 0/10; ao 02:02 BP 124 / 84; Pulse 86; Resp 16; Pulse Ox 100% on R/A; Pain 0/10; ao 01/23 23:38 Body Mass Index 37.20 (95.25 kg, 160.02 cm) aa1 Vitals: 00:45 Heart Tones 144. ao ED Course: 01/23 23:15 Patient arrived in ED. es 23:29 Charly Kumari NP is PHCP. pm1 23:29 Chicho Gilmore MD is Attending Physician. pm1 23:38 Triage completed. aa1 23:38 Arm band placed on right wrist. Patient placed in an exam room, on a stretcher. aa1 23:53 Inserted saline lock: 20 gauge in left antecubital area, using aseptic technique. Blood mw2 collected. 01/24 00:07 Zechariah Moraes, ANDRES is Primary Nurse. ao 00:24 Patient has correct armband on for positive identification. Fall risk band placed. ao Pulse ox on. NIBP on. 03:29 No provider procedures requiring assistance completed. IV discontinued, intact, aa1 bleeding controlled, No redness/swelling at site. Pressure dressing applied. Administered Medications: 03:24 Drug: RhoGAM (Human) 300 mcg Route: IM; Site: left deltoid; ao 03:39 Follow up: Response: No adverse reaction aa1 Outcome: 02:05 Discharge ordered by . pm1 03:39 Discharged to home ambulatory, with significant other. aa1 03:39 Condition: good 03:39 Discharge instructions given to patient, significant other, Instructed on discharge instructions, follow up and referral plans. Demonstrated understanding of instructions, follow-up care. 03:40 Patient left the ED. aa1 Signatures: Daria Cuellar RN RN aa1 Sadia Watkins Zechariah Moraes RN RN ao Marinas, Patrick, NP PHYSICIAN SURGEON pm1 Lissette Askew mw2 Corrections: (The following items were deleted from the chart) 00:00 01/23 23:59 Inserted saline lock: 20 gauge in left antecubital area, using aseptic mw2 technique. Blood collected. mw2
== END 2018-01-24 03:40 | disposition home or self-care (01) ==
LOC: ER 23:14
DX: O20.0 Threatened abortion (principal); F17.200 Nicotine dependence, unspecified, uncomplicated; Z3A.13 13 weeks gestation of pregnancy
CPT/HCPCS: 36415; 80048; 81003; 81025; 84702; 85025; 86850; 86870; 86900; 86901; 96372; 99284; J2790

== ENCOUNTER 2021-05-05 18:19 | Emergency (ER) | payer OTHER ==
--- NOTE | 2021-05-05 19:00 | ER ---
Nurse's Notes [facility] Name: Rolanda Santiago Age: 26 yrs Sex: Female : 1995 Arrival Date: 05/05/2021 Time: 18:25 Bed Waiting Private MD: Diagnosis: Presentation: 05/05 18:43 Note no answer. not in lobby. tw2 18:52 Note no answer. not in lobby. tw2 18:59 Note no answer. not in lobby. tw2 ED Course: 18:25 Patient arrived in ED. ds1 Administered Medications: No medications were administered Outcome: 18:59 Patient left the ED. tw2 Signatures: Ledy Jasmine ds1 Letitia Neves RN RN tw2
--- OUTSIDE RECORDS SUMMARY | 2021-05-11 15:59 | XMS REPORT | Continuity of Care Document ---
:1995 Author Organization [facility] t Address [address] [place] [address] Care Team Providers Name Role Phone Pcp, Patient Does Not Have A Primary Care Physician [phone] Glen ISABEL Attending Clinician Unavailable Ultrasound Attending Clinician Unavailable Nadya Sainz MD Attending Clinician Nadya SAINZ Attending Clinician Unavailable Nadya SAINZ Attending Clinician Unavailable Provider, [facility] Attending Clinician Unavailable Siomara LEROY Attending Clinician SIOMARA Attending Clinician Unavailable Geln Isabel MD Attending Clinician BURAK MILLER Attending Clinician Unavailable YUMIKO Attending Clinician Unavailable ANENE Attending Clinician Unavailable BURAK MILLER Admitting Clinician Unavailable FISH Admitting Clinician Unavailable Payers Payer Name Policy Type Policy Number Effective Date Expiration Date [facility] [id number] 2018 00:00:00 Problems Condition Condition Condition Status Onset Resolution Last Treating Co mments Source Name Details Category Date Date Treatment Clinician Date 24 weeks 24 weeks Disease Active 2020-06 Unive rs gestation gestation 0-20 ity of of of 00:00: [place] 00 [facility] Branch Supervisio Supervisio Disease Active 2020-06 U nivers n of n of 0-20 ity of high-risk high-risk 00:00: [place] s 00 [facility] with with Branch insufficie insufficie nt nt care in care in second second trimester trimester Obesity Obesity Disease Active Univers (BMI (BMI 2-04 ity of 30-39.9) 30-39.9) 00:00: [place] 00 [facility] Branch Rubella Rubella Disease Active Univers non-immune non-immune 2-05 it y of status, status, 00:00: [place] antepartum antepartum 00 Me dical Branch Generalize Generalize Disease Active U nivers d anxiety d anxiety 12-07 ity of disorder disorder 00:00: [address] Branch Asthma Asthma Disease Active Overview: Univer s 12-07 Formattin ity of 00:00: g of this [place] 00 note Medical might be Branch different from the original. ICD10 Diagnosis Term Barrel Roller Utility Allergies, Adverse Reactions, Alerts Allergy Allergy Status Severity Reaction(s) Onset Inactive Treating Comm ents Source Name Type Date Date Clinician NO KNOWN Drug Active Univers ALLERGIE Class ity of S [facility] Social History Social Habit Start Date Stop Date Quantity Comments Source ASSERTION 2020-11-11 [facility] 00:00:00 [facility] Exposure to Not sure [facility] SARS-CoV-2 [facility] (event) [place] Alcohol intake 2021-05-05 2021-05-05 Ex-drinker [facility] 00:00:00 00:00:00 (finding) [facility] Tobacco use and 2014-06-06 2014-06-06 Never used Universit y of exposure 00:00:00 00:00:00 [facility] History of 2014-05-07 Cigarette Smoker Universi ty of tobacco use 00:00:00 [facility] Sex Assigned At [birth year] Universit y of 00:00:00 00:00:00 [facility] Smoking Status Start Date Stop Date Source Former smoker 2014-06-06 00:00:00 2014-06-06 00:00:00 Universi ty of [facility] Medications Ordered Filled Start Stop Current Ordering Indication Dosage Frequency Signature Comments Components Source Medication Medication Date Date Medication? Clinician (SIG) Name Name ferrous Yes [id number] 325mg Take 1 Un bridget sulfate 325 9-26 tablet by ity of mg (65 mg 00:00: mouth 3 [place] iron) 00 (three) Medical tablet times Branch daily with meals. ascorbic Yes [id number] 500mg Take 1 U nivers acid, 9-26 tablet by ity of vitamin C, 00:00: [place] 2 [place] 500 mg 00 (two) Medical tablet times Branch daily. ferrous Yes [id number] 325mg Take 1 Un bridget sulfate 325 9-26 tablet by ity of mg (65 mg 00:00: mouth 3 [place] iron) 00 (three) Medical tablet times Branch daily with meals. ascorbic Yes [id number] 500mg Take 1 U nivers acid, 9-26 tablet by ity of vitamin C, 00:00: mouth [place] 500 mg 00 (two) Medical tablet times Branch daily. ferrous Yes [id number] 325mg Take 1 Un bridget sulfate 325 9-26 tablet by ity of mg (65 mg 00:00: mouth 3 [place] iron) 00 (three) Medical tablet times Branch daily with meals. ascorbic Yes [id number] 500mg Take 1 U nivers acid, 9-26 tablet by ity of vitamin C, 00:00: mouth [place] 500 mg 00 (two) Medical tablet times Branch daily. ferrous Yes [id number] 325mg Take 1 Un bridget sulfate 325 9-26 tablet by ity of mg (65 mg 00:00: mouth 3 [place] iron) 00 (three) Medical tablet times Branch daily with meals. ascorbic Yes [id number] 500mg Take 1 U nivers acid, 9-26 tablet by ity of vitamin C, 00:00: mouth 2 [place] 500 mg 00 (two) Medical tablet times Branch daily. ferrous Yes [id number] 325mg Take 1 Un bridget sulfate 325 9-26 tablet by ity of mg (65 mg 00:00: mouth 3 [place] iron) 00 (three) Medical tablet times Branch daily with meals. ascorbic Yes [id number] 500mg Take 1 U nivers acid, 9-26 tablet by ity of vitamin C, 00:00: mouth 2 [place] 500 mg 00 (two) Medical tablet times Branch daily. metroNIDAZO Yes [id number] 500mg Take 1 Univers LE 500 mg 9-24 tablet by ity o f tablet 00:00: mouth [place] 00 every 12 Medical (twelve) Branch hours. metroNIDAZO Yes [id number] 500mg Take 1 Univers LE 500 mg 9-24 tablet by ity o f tablet 00:00: mouth [place] 00 every 12 Medical (twelve) Branch hours. metroNIDAZO 2020- No [id number] 500mg Take 1 Univers LE 500 mg 9-24 10-20 tablet by ity of tablet 00:00: 00:00 mouth [place] 00 :00 every 12 Medical (twelve) Branch hours. Yes [id number] Take by Univers vit 03-20 mouth. ity of calc,iron,f 14:11: [address] ( Branch VITAMIN ORAL) Yes [id number] Take by Univers vit 03-20 mouth. ity of calc,iron,f 14:11: [address] ([facility] Branch VITAMIN ORAL) Yes [id number] Take by Univers vit 03-20 mouth. ity of calc,iron,f 14:11: [address] ( Branch VITAMIN ORAL) Yes [id number] Take by Univers vit 03-20 mouth. ity of calc,iron,f 14:11: [address] ([facility] Branch VITAMIN ORAL) Yes [id number] Take by Univers vit 03-20 mouth. ity of calc,iron,f 14:11: [address] ([facility] Branch VITAMIN ORAL) Yes [id number] Take by Univers vit 03-20 mouth. ity of calc,iron,f 14:11: [address] ( Branch VITAMIN ORAL) miSOPROStoL 2020- No [id number] 200ug Take 1 Univers 200 mcg 07-24 tablet by ity of tablet 00:00: 00:00 mouth [place] 00 :00 SEE-INSTRU Medical CTIONS. Branch Take one tab the night before and one tab the morning of procedure Immunizations Ordered Filled Immunization Date Status Comments [facility] e Immunization Name Name Rho (d) Immune 2020-06-02 Completed University of Globulin 00:00:00 [facility] Rho (d) Immune 2020-06-02 Completed University of Globulin 00:00:00 [facility] Rho (d) Immune 2020-06-02 Completed University of Globulin 00:00:00 [facility] Rho (d) Immune 2020-06-02 Completed University of Globulin 00:00:00 [facility] Rho (d) Immune 2020-06-02 Completed University of Globulin 00:00:00 [facility] Rho (d) Immune 2020-06-02 Completed University of Globulin 00:00:00 [facility] Rho (d) Immune 2020-03-27 Completed University of Globulin 00:00:00 [facility] Branch Rho (d) Immune 2020-03-27 Completed University of Globulin 00:00:00 [facility] Rho (d) Immune 2020-03-27 Completed University of Globulin 00:00:00 [facility] Rho (d) Immune 2020-03-27 Completed University of Globulin 00:00:00 [facility] Rho (d) Immune 2020-03-27 Completed University of Globulin 00:00:00 [facility] Rho (d) Immune 2020-03-27 Completed University of Globulin 00:00:00 [facility] TDAP 2020-03-22 Completed University of 00:00:00 [facility] TDAP 2020-03-22 Completed University of 00:00:00 [facility] TDAP 2020-03-22 Completed University of 00:00:00 [facility] TDAP 2020-03-22 Completed University of 00:00:00 [facility] TDAP 2020-03-22 Completed University of 00:00:00 [facility] TDAP 2020-03-22 Completed University of 00:00:00 [facility] Rho (d) Immune 2019-11-29 Completed University of Globulin 00:00:00 [facility] Rho (d) Immune 2019-11-29 Completed University of Globulin 00:00:00 [facility] Rho (d) Immune 2019-11-29 Completed University of Globulin 00:00:00 [facility] Rho (d) Immune 2019-11-29 Completed University of Globulin 00:00:00 [facility] Rho (d) Immune 2019-11-29 Completed University of Globulin 00:00:00 [facility] Rho (d) Immune 2019-11-29 Completed University of Globulin 00:00:00 [facility] Rho (d) Immune 2018-08-03 Completed University of Globulin 00:00:00 [facility] Rho (d) Immune 2018-08-03 Completed University of Globulin 00:00:00 [facility] Branch Rho (d) Immune 2018-08-03 Completed University of Globulin 00:00:00 [facility] Rho (d) Immune 2018-08-03 Completed University of Globulin 00:00:00 [facility] Branch Rho (d) Immune 2018-08-03 Completed University of Globulin 00:00:00 [facility] Rho (d) Immune 2018-08-03 Completed University of Globulin 00:00:00 [facility] TDAP 2012-07-23 Completed University of 00:00:00 [facility] TDAP 2012-07-23 Completed University of 00:00:00 [facility] TDAP 2012-07-23 Completed University of 00:00:00 [facility] TDAP 2012-07-23 Completed University of 00:00:00 [facility] TDAP 2012-07-23 Completed University of 00:00:00 [facility] TDAP 2012-07-23 Completed University of 00:00:00 [facility] Rubella 2011-02-03 Completed University of 00:00:00 [facility] Rubella 2011-02-03 Completed University of 00:00:00 [facility] Rubella 2011-02-03 Completed University of 00:00:00 [facility] Rubella 2011-02-03 Completed University of 00:00:00 [facility] Rubella 2011-02-03 Completed University of 00:00:00 [facility] Rubella 2011-02-03 Completed University of 00:00:00 [facility] Vital Signs Vital Name Observation Time Observation Value Comments Source Systolic blood 2021-05-06 02:17:00 124 mm[Hg] Univer sity of pressure [facility] Diastolic blood 2021-05-06 02:17:00 80 mm[Hg] Unive rsity of [facility] Heart rate 2021-05-06 02:17:00 97 /min [facility] Body temperature 2021-05-06 02:17:00 36.56 Gissel [facility] Respiratory rate 2021-05-06 02:17:00 18 /min [facility] Body weight 2021-05-06 02:17:[address] [facility] BMI 2021-05-06 02:17:00 34.64 kg/m2 [facility] Oxygen saturation in 2021-05-06 02:17:00 98 /min [facility] Arterial blood by [facility] Pulse oximetry Branch Systolic blood 2021-04-17 16:52:00 116 mm[Hg] Univer sity of pressure [facility] Diastolic blood 2021-04-17 16:52:00 72 mm[Hg] Unive rsity of pressure [place] [facility] Heart rate 2021-04-17 16:52:00 76 /min Universi ty of [place] [facility] Body temperature 2021-04-17 16:52:00 37.17 Gissel Univ ersity of [place] [facility] Respiratory rate 2021-04-17 16:52:00 18 /min Univ ersity of [place] [facility] [place] Body height 2021-04-17 16:52:00 157.5 cm Universi ty of [place] [facility] Body weight 2021-04-17 16:52:00 84.823 kg Universi ty of [place] [facility] BMI 2021-04-17 16:52:00 34.20 kg/m2 Universi ty of [facility] Branch Systolic blood 2021-03-20 19:08:00 111 mm[Hg] Univer sity of pressure [place] [facility] Diastolic blood 2021-03-20 19:08:00 67 mm[Hg] Unive rsity of [facility] Heart rate 2021-03-20 19:08:00 81 /min Universi ty of [place] [facility] [place] Body temperature 2021-03-20 19:08:00 36.89 Gissel [facility] ersity of [place] [facility] [place] Respiratory rate 2021-03-20 19:08:00 18 /min Univ ersity of [facility] Body height 2021-03-20 19:08:00 157.5 cm Universi ty of [place] [facility] [place] Body weight 2021-03-20 19:08:00 83.462 kg Universi ty of [place] [facility] [place] BMI 2021-03-20 19:08:00 33.65 kg/m2 Universi ty of [place] [facility] [place] Procedures Procedure Date / Time Performing Clinician Source Performed URINE DRUG (IMMUNOASSAY) 2021-03-20 19:29:00 Adum, Jessica Casanova [facility] DRUG [facility] SCREEN URINALYSIS 2021-03-20 19:29:00 Adum, Jessica Carroll [place] o f [facility] GC & CHLAMYDIA AMPLIFIED 2021-03-20 19:29:00 Adum, Jessica Casanova [facility] GALV ONLY - VAGINAL 2021-03-20 19:29:00 Adum, Jessica Carroll [facility] PATHOGENS BY [facility] ACID TESTING POCT TEST 2021-03-20 00:00:00 Jessica Isabel of [facility] POCT URINALYSIS W/O 2021-03-20 00:00:00 Jessica Isabel ty [facility] Express Encounters Start End Encounter Admission Attending Care Care Encounter Source Date/Time Date/Time Type Type Clinicians Facility Department ID 2021-04-29 Emergency [facility] [id number] Univers 00:54:21 ity of [facility] 2021-04-27 Emergency [facility] [id number] Univers 10:06:25 ity of [facility] 2021-04-27 Outpatient P [facility] [id number] Univers 09:09:58 ity of [facility] 2021-04-27 Outpatient P [facility] [id number] Univers 08:24:44 ity of [facility] 2021-04-27 Outpatient P [facility] [id number] Univers 05:48:13 ity of [facility] 2021-04-27 Outpatient P [facility] [id number] Univers 01:10:13 ity of [facility] 2021-04-27 Outpatient P [facility] [id number] Univers 01:07:31 ity of [facility] 2021-04-27 Emergency [facility] [id number] Univers 01:07:04 ity of [facility] 2021-06-07 2021-06-07 Outpatient P [facility] [id number] Univers 13:00:00 13:00:00 [id number] ity [facility] 2021-05-15 2021-05-15 Outpatient R ADUM, [facility] [id number] Univers 10:30:00 10:30:00 JESSICA [id number] ity [facility] 2021-05-15 2021-05-15 Outpatient R ADUM, [facility] [id number] Univers 09:00:00 09:00:00 JESSICA itdominick [facility] 2021-05-09 2021-05-09 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, Lali [facility] [id number] Univers 12:36:32 13:51:32 Visit Domitila Sainz [employer]QU[employer] BLENDER [id number] [facility] [id number] Som as MATERNAL [phone] [facility] ical & CHILD [address] [place] [address] 2021-05-09 2021-05-09 Outpatient P [facility] [id number] Univers 12:45:00 12:45:00 [id number] ity [facility] 2021-05-09 2021-05-09 Outpatient P DOMITILA SAINZ [facility] [id number] Univers 12:45:00 12:45:00 [facility] 2021-05-06 2021-05-06 Outpatient R [facility] [id number] Univers 08:00:00 08:00:00 [id number] ity [facility] 2021-05-06 2021-05-06 Outpatient P [facility] [id number] Univers 08:00:00 08:00:00 [facility] 2021-05-05 2021-05-05 Urgent Provider, J [facility] [id number] Univers 19:59:02 20:19:02 Care Siomara [facility] [id number] ity [facility] [id number] Som as QUAN?BLEA [phone] Mo che [address] MEDICAL OFFICE BUILDING 2021-05-05 2021-05-05 Outpatient R [facility] [id number] Univers 20:00:00 20:00:00 [id number] [facility] 2021-05-05 2021-05-05 [facility] [id number] Univers 20:00:00 20:00:00 [facility] 2021-04-19 2021-04-19 Outpatient R [facility] [id number] Univers 08:00:00 08:00:00 [id number] [facility] 2021-04-17 2021-04-17 Routine Adum, [facility] [id number] Univers 11:32:06 12:06:52 Jessica [place] [id number] ity of Visit [place] [id number] [place] Profess[place] [phone] Mo dical nal [address] [place] [address] 2021-04-17 2021-04-17 Outpatient R ADUM, [facility] [id number] Univers 11:15:00 11:15:00 JESSICA [id number] ity of [facility] 2021-04-17 2021-04-17 Outpatient R ADUM, [facility] [id number] Univers 11:15:00 11:15:00 JESSICA ity [facility] 2021-04-08 2021-04-08 Telephone Ad, [facility] [id number] Univers 00:00:00 00:00:00 Jessica Carroll [place] [id number] ity of [place] [id number] [place] Profess[place] [phone] [address] 2021-04-02 2021-04-02 [facility] [id number] Univers 00:00:00 00:00:00 Jessica Carroll [place] [id number] ity of [place] [id number] [place] [phone] [address] 2021-03-22 2021-03-22 Outpatient R [facility] [id number] Univers 08:30:00 08:30:00 [id number] ity of [facility] 2021-03-22 2021-03-22 Outpatient R ADUM, [facility] [id number] Univers 08:30:00 08:30:00 JESSICA ity of [facility] 2021-03-21 2021-03-21 Outpatient R [facility] [id number] Univers 08:30:00 08:30:00 [id number] ity of [facility] 2021-03-21 2021-03-21 Outpatient R [facility] [id number] Univers 08:30:00 08:30:00 ity of [facility] 2021-03-20 2021-03-20 Initial Ad, [facility] [id number] Univers 13:51:18 15:03:16 Jessica Carroll [place] [id number] ity of Visit [place] [id number] Albert Jacobson [phone] Mo dical [address] 2021-03-20 2021-03-20 Outpatient R CHALO [facility] [id number] Univers 13:30:00 13:30:00 JESSICA [id number] ity [facility] 2021-03-20 2021-03-20 Outpatient R CHALO [facility] [id number] Univers 13:30:00 13:30:00 [facility] 2021-03-11 2021-03-[address] [facility] [id number] Univers 13:30:00 13:30:00 [id number] [facility] 2021-03-11 2021-03-[address] [facility] [id number] Univers 13:30:00 13:30:00 ity [facility] 2021-02-28 2021-02-[address] [facility] [id number] Univers 10:00:00 10:00:00 [id number] ity [facility] 2021-02-28 2021-02-[address] [facility] [id number] Univers 10:00:00 10:00:00 ity [facility] 2020-09-06 2020-09-06 Outpatient R YUMIKO [facility] [id number] Univers 09:30:00 09:30:00 KULDIP [id number] ity [facility] 2020-09-06 2020-09-06 Outpatient R YUMIKO [facility] [id number] Univers 09:30:00 09:30:00 [facility] 2020-08-16 2020-08-[address] [facility] [id number] Univers 13:30:00 13:30:00 [id number] ity [facility] 2020-08-16 2020-08-[address] [facility] [id number] Univers 13:30:00 13:30:00 ity [facility] 2020-07-24 2020-07-24 Outpatient R DAQUAN MILLER [facility] [id number] Univers 16:00:00 16:00:00 [id number] ity of [facility] 2020-07-24 2020-07-24 Outpatient R DAQUAN MILLER [facility] [id number] Univers 16:00:00 16:00:00 ity of [facility] 2020-07-12 2020-07-12 Outpatient R DAQUAN MILLER [facility] [id number] Univers 08:45:00 08:45:00 [id number] ity of [facility] 2020-07-12 2020-07-12 Outpatient R DAQUAN MILLER [facility] [id number] Univers 08:45:00 08:45:00 ity [facility] 2020-06-25 2020-06-25 Outpatient R YUMIKO [facility] [id number] Univers 10:30:00 10:30:00 KULDIP [id number] ity [facility] 2020-06-25 2020-06-25 Outpatient R YUMIKO [facility] [id number] Univers 10:30:00 10:30:00 KULDIP ity [facility] 2020-05-28 2020-05-28 Outpatient R DAQUAN MILLER [facility] [id number] Univers 09:15:00 09:15:00 ity [facility] 2020-05-28 2020-05-28 Outpatient R DAQUAN MILLER [facility] [id number] Univers 09:15:00 09:15:00 ity of [facility] 2020-05-21 2020-05-21 Outpatient R DAQUAN MILLER [facility] [id number] Univers 10:30:00 10:30:00 [id number] ity [facility] 2020-05-21 2020-05-21 Outpatient R DAQUAN MILLER [facility] [id number] Univers 10:30:00 10:30:00 ity [facility] 2020-05-16 2020-05-16 Outpatient R YUMIKO [facility] [id number] Univers 11:30:00 11:30:00 KULDIP [id number] ity [facility] 2020-05-16 2020-05-16 Outpatient R YUMIKO [facility] [id number] Univers 11:30:00 11:30:00 KULDIP ity [facility] 2020-05-14 2020-05-14 Outpatient R DAQUAN MILLER [facility] [id number] Univers 16:00:00 16:00:00 [id number] ity [facility] 2020-05-14 2020-05-14 Outpatient R DAQUAN MILLER [facility] [id number] Univers 16:00:00 16:00:00 ity [facility] 2020-05-03 2020-05-03 Outpatient R DAQUAN MILLER [facility] [id number] Univers 13:00:00 13:00:00 ity [facility] 2020-05-03 2020-05-03 [facility] [id number] Univers 13:00:00 13:00:00 ity [facility] 2020-04-19 2020-04-19 Outpatient R YUMIKO [facility] [id number] Univers 11:30:00 11:30:00 KULDIP [id number] ity [facility] 2020-04-19 2020-04-19 Outpatient R YUMIKO [facility] [id number] Univers 11:30:00 11:30:00 KULDIP ity [facility] 2020-04-05 2020-04-05 Outpatient R DAQUAN MILLER [facility] [id number] Univers 09:15:00 09:15:00 ity [facility] 2020-04-05 2020-04-05 Outpatient R DAQUAN MILLER [facility] [id number] Univers 09:15:00 09:15:00 ity of [facility] 2020-03-27 2020-03-27 Outpatient R [facility] [id number] Univers 15:00:00 15:00:00 [id number] ity [facility] 2020-03-27 2020-03-27 Outpatient R [facility] [id number] Univers 15:00:00 15:00:00 ity [facility] 2020-03-23 2020-03-23 Outpatient R [facility] [id number] Univers 10:00:00 10:00:00 ity of [facility] 2020-03-23 2020-03-23 Outpatient R [facility] [id number] Univers 09:30:00 09:30:00 [id number] ity of [facility] 2020-03-22 2020-03-22 Outpatient R YUMIKO [facility] [id number] Univers 11:15:00 11:15:00 KULDIP [id number] ity of [facility] 2020-03-22 2020-03-22 Outpatient R JOSECAMERONESTRELLA, [facility] [id number] Univers 11:15:00 11:15:00 KULDIP ity [facility] 2020-02-27 2020-02-27 Outpatient R [facility] [id number] Univers 09:45:00 09:45:00 [id number] ity [facility] 2020-02-22 2020-02-22 Outpatient R HECTORESTRELLA [facility] [id number] Univers 09:15:00 09:15:00 KULDIP [id number] ity [facility] 2020-02-22 2020-02-22 Outpatient R YUMIKO [facility] [id number] Univers 09:15:00 09:15:00 KULDIP [facility] 2020-02-10 2020-02-10 Outpatient R YUMIKO [facility] [id number] Univers 15:00:00 15:00:00 KULDIP [id number] ity [facility] 2020-02-10 2020-02-10 [facility] [id number] [facility] 15:00:00 15:00:[facility] 2020-01-27 Outpatient R JE [facility] [id number] Univers 13:00:00 13:00:00 [facility] 2020-01-27 Outpatient R [facility] [id number] Univers 09:00:00 09:00:00 [id number] ity [facility] 2020-01-23 2020-01-23 Outpatient R DAQUAN MILLER [facility] [id number] Univers 11:00:00 11:00:00 [id number] ity [facility] 2020-01-23 2020-01-23 Outpatient R DAQUAN MILLER [facility] [id number] Univers 11:00:00 11:00:00 ity of [facility] 2020-01-13 2020-01-13 Outpatient R [facility] [id number] Univers 10:00:00 10:00:00 [id number] ity of [facility] 2020-01-13 2020-01-13 Outpatient R JE [facility] [id number] Univers 10:00:00 10:00:00 JORDAN ity [facility] 2019-12-27 2019-12-27 Outpatient R [facility] [id number] Univers 09:30:00 09:30:00 ity [facility] 2019-12-27 2019-12-27 Outpatient R DAQUAN MILLER [facility] [id number] Univers 09:30:00 09:30:00 ity of [facility] 2019-12-26 2019-12-26 Outpatient R DAQUAN MILLER [facility] [id number] Univers 11:30:00 11:30:00 [id number] ity of [facility] 2019-12-26 2019-12-26 Outpatient R DAQUAN MILLER [facility] [id number] Univers 11:30:00 11:30:00 ity [facility] 2019-11-29 2019-11-29 Outpatient R [facility] [id number] Univers 13:30:00 13:30:00 ity [facility] 2019-11-29 2019-11-29 Outpatient R [facility] [id number] Univers 13:30:00 13:30:00 ity [facility] 2019-11-28 2019-11-28 Outpatient R DAQUAN MILLER [facility] [id number] Univers 11:00:00 11:00:00 ity [facility] 2019-11-28 2019-11-28 Outpatient R DAQUAN MILLER [facility] [id number] [facility]:00[facility]00 [facility] Test Description Test Time Test Comments Results Result Comments Source POCT URINALYSIS W/O SPECIFIC GRAVITY 2021-03-20 19:31:00 Test Item Value Reference Range Interpretation Comme nts POCT PH U (test code = 3254) 7 mg/dl 5-8 POCT U LEUK EST (test code = 3263) neg Negative - Negative POCT U NIT (test code = 3262) neg Negative - Negative POCT U PROT (test code = 3259) neg Negative - Negative POCT U GLU (test code = 3256) neg Negative - Negative POCT U KETONE (test code = 3258) neg Negative - Negative POCT U BLD (test code = 3257) neg Negative - Negative Lab Interpretation (test code = 34292-5) [id number] Test Item Value Reference Range Interpretation Comments POCT PREG (test code = 1605) Positive On board controls acceptable with C Yes Line (test code = 3574) POCT PREG LOT # (test code = 3575) POCT PREG TEST DATE (test code = 3576) Lab Interpretation (test code = Abnormal 70098-5) [facility]
== END 2021-05-05 18:59 | disposition left against medical advice (07) ==
LOC: ER 18:19
DX: Z02.9 Encounter for administrative examinations, unspecified (principal)

== ENCOUNTER 2021-10-02 13:22 | Emergency (ER) | payer OTHER ==
--- OUTSIDE RECORDS SUMMARY | 2021-10-02 13:27 | XMS REPORT | Continuity of Care Document ---
:1995 Author Organization [facility] t Address [address] [place] [address] Care Team Providers Name Role Phone PCP, DOES NOT HAVE A Primary Care Physician Unavailable FABIAN Attending Clinician Unavailable Fabian FARNSWORTH Attending Clinician Glen Littlejohn MD Attending Clinician Burak Miller MD Attending Clinician Nurse, Women's Health Attending Clinician Unavailable Glen LITTLEJOHN Attending Clinician Unavailable Isaac FARNSWORTH Attending Clinician Doctor Unassigned, Name Attending Clinician Unavailable 2, Lab Attending Clinician Unavailable Only, Db Test Attending Clinician Unavailable Unknown Attending Clinician Unavailable NERY Attending Clinician Unavailable Ultrasound, Mfm Attending Clinician Unavailable BURAK MILLER Attending Clinician Unavailable FABIAN Admitting Clinician Unavailable Isaac FARNSWORTH Admitting Clinician ISAAC Admitting Clinician Unavailable Payers Payer Name Policy Type Policy Number Effective Date Expiration Date [facility] [id number] 2018 00:00:00 Problems Condition Condition Condition Status Onset Resolution Last Treating Co mments Source Name Details Category Date Date Treatment Clinician Date Gestationa Gestationa Disease Active 2021-0 U nivers l l 3-08 [place] hypertens[place] Medical antepartum antepartum Br anch Supervisio Supervisio Disease Active 2020- U nivers n of n of 0-20 [place] of high-risk high[place]ose cru[place] with with Branch insufficie insufficie nt nt care in care in third third trimester trimester 28 weeks 28 weeks Disease Active 2020-06 Unive rs gestation gestation 0-20 ity of of of 00:00: [place] 00 [facility] 33 weeks 33 weeks Disease Active 2020-06 Unive rs gestation gestation 0-20 ity of of of 00:00: [place] 00 [facility] Liveborn Liveborn Disease Active 2019-06 Unive rs infant, of , of 2-04 it y of mata mata [place] , , 00 [place] dical born in born in [facility] hospital by vaginal by vaginal delivery delivery Obesity Obesity Disease Active Univers (BMI (BMI 2-04 ity of 30-39.9) 30-39.9) 00:00: [address] Rubella Rubella Disease Active Univers non-immune non-immune 2-05 it y of status, status, 00:00: [place] antepartum antepartum 00 Me dical Branch Generalize Generalize Disease Active U nivers d anxiety d anxiety 6-11 ity of disorder disorder 00:00: [address] Asthma Asthma Disease Active Overview: Univer s 6-11 Formattin ity of 00:00: g of this [place] 00 note Medical might be Branch different from the original. 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 Utility Allergies, Adverse Reactions, Alerts Allergy Allergy Status Severity Reaction(s) Onset Inactive Treating Comm ents Source Name Type Date Date Clinician NO KNOWN Drug Active Univers ALLERGIE Class ity of S [facility] Social History Social Habit Start Date Stop Date Quantity Comments Source ASSERTION 2020-12-27 [facility] 00:00:00 [facility] Exposure to Not sure [place] of SARS-CoV-2 [facility] (event) [place] Alcohol intake 2021-09-04 2021-09-04 Ex-drinker [facility] 00:00:00 00:00:00 (finding) [facility] Tobacco use and 2014-06-06 2014-06-06 Never used Universit y of exposure 00:00:00 00:00:00 [facility] History of 2014-05-07 Cigarette Smoker Universi ty of tobacco use 00:00:00 [facility] Sex Ass[birth year] At [birth year] Universit y of 00:00:00 00:00:00 [facility] Smoking Status Start Date Stop Date Source Former smoker 2014-06-06 00:00:00 2014-06-06 00:00:00 [facility] Medical Branch Medications Ordered Filled Start Stop Current Ordering Indication Dosage Frequency Signature Comments Components Source Medication Medication Date Date Medication? Clinician (SIG) Name Name miSOPROStoL 2021- No 800ug 800 mcg, Univers (CYTOTEC) 09-12 Vaginal, ity o f tablet 800 20:45: 20:28 ONCE, 1 Som as mcg 00 :00 dose, On Medical Luly Branch 09/12/21 at 1545, Routine ketorolac 2021- No 30mg 30 mg, Unive rs (TORADOL) 09-12 Slow IV ity of injection 20:30: 20:06 Push, [place] 30 mg 00 :00 ONCE, 1 Medical dose, On Branch Luly 09/12/21 at 1530, Routine Yes [id number] Take by Univers vit 09-12 09 mouth. ity of calc,iron,f 14:42: [place] olic 37 Medical ( Branch VITAMIN ORAL) Yes 1{packe Take 1 Univ ers vit 09-12 t} Packet by ity of 33-iron-fol 00:00: mouth [place] ic-dha 00 daily. Medical (SELECT-OB Branch + DHA) 29 mg iron-1 mg -250 mg combo pack ibuprofen Yes [id number] 800mg Take 1 U nivers 800 mg 3-17 tablet by ity of tablet 00:00: mouth [place] 00 every 8 Medical (eight) Branch hours as needed for Pain (scale 4-6). amoxicillin 2021- Yes [id number] 500mg Take 1 Univers -pot 09-12-25 tablet by ity of clavulanate 00:00: 04:59 mouth 3 [place] 500 mg 00 :00 (three) Medical (AUGMENTIN) times Branch 500-125 mg daily for tablet 7 days. methylergon 2021- Yes [id number] 200ug Take 1 Univers ovine 0.2 09-1219 tablet by ity of mg tablet 00:00: 04:59 mouth [place] 00 :00 every 6 Medical (six) Branch hours for 4 doses. Yes [id number] Take by Univers vit 3-10 09 mouth. ity of calc,iron,f 09:48: [place] [address] Medical ([facility] Branch VITAMIN ORAL) Yes [id number] Take by Univers vit 3-10 09 mouth. ity of calc,iron,f 09:48: [facility] Medical ([facility] Branch VITAMIN ORAL) Yes [id number] Take by Univers vit 3-10 09 mouth. ity of calc,iron,f 09:48: [facility] Medical ([facility] Branch VITAMIN ORAL) Yes [id number] Take by Univers vit 3-10 09 mouth. ity of calc,iron,f 09:48: [address] ([facility] Branch VITAMIN ORAL) Yes [id number] 1{tbl} Take 1 Univers vitamin 3-10 tablet by ity of w/FA tablet 00:00: mouth [place] 00 daily. [facility] Branch [facility] Yes [id number] 1{tbl} Take 1 Univers vitamin 3-10 tablet by ity of w/FA tablet 00:00: mouth [place] 00 daily. [facility] Yes [id number] 1{tbl} Take 1 Univers vitamin 3-10 tablet by ity of w/FA tablet 00:00: mouth [place] 00 daily. [facility] 2021- No [id number] 1{tbl} Take 1 Univers vitamin 3-10 03-17 tablet by ity of w/FA tablet 00:00: [place]:00 [place] 00 :00 daily. [facility] 2021- No [id number] 1{tbl} Take 1 Univers vitamin 3-10 03-17 tablet by ity of w/FA tablet 00:00: 00:00 [place] 00 :00 daily. [facility] HYDROcodone Yes 1{tbl} 1 tablet, Univers -acetaminop 3-09 Oral, ity of hen (NORCO 09:52: Q6HPRN, [place] 5) 5-325 mg 26 Starting Medi jose cruz tablet 1 on Thu Branch tablet 09/04/21 at 0352, Until Discontinu ed, Routine, Pain (scale 7-10) ibuprofen Yes 600mg 600 mg, Univ ers (IBU) 3-09 Oral, ity of tablet 600 09:52: Q6HPRN, [place] mg 26 Starting Medical on Wed Branch 09/04/21 at 0352, Until Discontinu ed, Routine, Pain (scale 4-6) acetaminoph 2021-0 Yes 650mg 650 mg, Un bridget en 3-09 Oral, ity of (TYLENOL) 09:52: Q6HPRN, [place] tablet 650 26 Starting Medic al mg on Thu Branch 09/04/21 at 0352, Until Discontinu ed, Routine, Pain (scale 1-3) diphenhydrA 2021-0 Yes 25mg 25 mg, Univ ers MINE 3-09 Oral, ity of (BENADRYL) 09:52: Q6HPRN, [place] tablet 25 26 Starting Medica l mg on Thu Branch 09/04/21 at 0352, Until Discontinu ed, Routine, Sleep, Itching ondansetron 2021-0 Yes 4mg 4 mg, Slow Univers (ZOFRAN 09-04 IV Push, ity of (PF)) 09:52: Q8HPRN, [place] injection 4 26 Starting Medi jose cruz mg on Thu Branch 09/04/21 at 0352, Until Discontinu ed, Routine, Nausea and Vomiting (N/V) docusate 2021-0 Yes 240mg 240 mg, Unive rs calcium 09 Oral, ity of (SURFAK) 09:52: QDAILYPRN, Som as capsule 240 26 Starting Medi jose cruz mg on Thu Branch 09/04/21 at 0352, Until Discontinu ed, Routine, Constipati on magnesium 0 Yes 30mL 30 mL, Univer s hydroxide 09-04 Oral, ity of (MILK OF 09:52: QDAILYPRN, Som as MAGNESIA) 26 Starting Medica l 400 mg/5 mL on Thu Branch suspension 09/04/21 at 30 mL 0352, Until Discontinu ed, Routine, Constipati on benzocaine- 2021-0 Yes Topical, Un bridget menthol 09 PRN, ity of (DERMOPLAST 09:52: [place] 20-0.5 % 26 on Thu Medical topical 09/04/21 at Branch spray 0352, Until Discontinu ed, Routine, Perineum discomfort dinoproston 2021-0 2021- No 10mg 10 mg, Uni vers e 09-04 Vaginal, ity of (CERVIDIL) 02:45: 02:49 ONCE, 1 Som as vaginal 00 :00 dose, On Medical insert 10 Thu09/03/21 Bran ch mg at 2044, Routine D5W-LR IV 2021- No 1000mL at 125 Uni vers infusion 09-04 mL/hr, IV ity o f 1,000 mL 00:30: 09:53 Infusion, Som as 00 :07 CONTINUOUS Medical , Starting Branch on Thu09/03/21 at 1830, Until Thu09/04/21 at 0353, Routine FENTanyl PF 2021- No 100ug 100 mcg, Univers (SUBLIMAZE 09-04 Slow IV ity o f (PF)) 00:28: 09:53 [place], [place] injection 08 :07 Q1HPRN, 2 Medic al 100 mcg doses, Branch Starting on Thu09/03/21 at 1828, Until Thu09/04/21 at 0353, Routine, Pain (scale 7-10) 0 Yes [id number] Take by Univers vit 2-25 09 mouth. ity of calc,iron,f 11:22: [address] ( Branch VITAMIN ORAL) 0 Yes [id number] Take by Univers vit 2-25 09 mouth. ity of calc,iron,f 11:22: [address] ( Branch VITAMIN ORAL) 0 Yes [id number] Take by Univers vit 2-25 09 mouth. ity of calc,iron,f 11:22: [address] ( Branch VITAMIN ORAL) 0 Yes [id number] Take by Univers vit 2-25 09 mouth. ity of calc,iron,f 11:22: [address] ( Branch VITAMIN ORAL) 0 Yes [id number] Take by Univers vit 2-25 09 mouth. ity of calc,iron,f 11:22: [address] ( Branch VITAMIN ORAL) 0 Yes [id number] Take by Univers vit 2-25 09 mouth. ity of calc,iron,f 11:22: [address] ( Branch VITAMIN ORAL) 2021-0 Yes [id number] Take by Univers vit 2-25 09 mouth. ity of calc,iron,f 11:22: [place] olic 09 Medical ( Branch VITAMIN ORAL) 2021-0 Yes [id number] Take by Univers vit 2-25 09 mouth. ity of calc,iron,f 11:22: [place] olic 09 Medical ( Branch VITAMIN ORAL) clotrimazol 0 Yes [id number] Apply to Univers e 1 % 1-05 area(s) at ity of topical 00:00: bedtime. [place] cream 00 Medical Branch clotrimazol 0 Yes [id number] Apply to Univers e 1 % 1-05 area(s) at ity of topical 00:00: bedtime. [place] cream 00 Medical Branch clotrimazol 0 Yes [id number] Apply to Univers e 1 % 1-05 area(s) at ity of topical 00:00: bedtime. [place] cream 00 Medical Branch clotrimazol 0 Yes [id number] Apply to Univers e 1 % 1-05 area(s) at ity of topical 00:00: bedtime. [place] cream 00 Medical Branch clotrimazol 0 Yes [id number] Apply to Univers e 1 % 1-05 area(s) at ity of topical 00:00: bedtime. [place] cream 00 Medical Branch clotrimazol 0 2021- No [id number] Apply to Univers e 1 % 1-05 02-08 area(s) at ity of topical 00:00: 00:00 bedtime. [place] cream 00 :00 Medical Branch ferrous 2020-0 Yes [id number] 325mg Take 1 Un bridget sulfate 325 9-26 tablet by ity of mg (65 mg 00:00: mouth 3 [place] iron) 00 (three) Medical tablet times Branch daily with meals. ascorbic 2020-0 Yes [id number] 500mg Take 1 U nivers acid, 9-26 tablet by ity of vitamin C, 00:00: mouth 2 [place] 500 mg 00 (two) Medical tablet times Branch daily. ferrous 2020-0 Yes [id number] 325mg Take 1 Un bridget sulfate 325 9-26 tablet by ity of mg (65 mg 00:00: mouth 3 [place] iron) 00 (three) Medical tablet times Branch daily with meals. ascorbic Yes [id number] 500mg Take 1 U nivers acid, 9-26 tablet by ity of vitamin C, 00:00: mouth 2 [place] 500 mg 00 (two) Medical tablet times Branch daily. ferrous Yes [id number] 325mg Take 1 Un bridget sulfate 325 9-26 tablet by ity of mg (65 mg 00:00: mouth 3 [place] iron) 00 (three) Medical tablet times Branch daily with meals. ascorbic Yes [id number] 500mg Take 1 U nivers acid, 9-26 tablet by ity of vitamin C, 00:00: mouth 2 [place] 500 mg 00 (two) Medical tablet times Branch daily. ferrous Yes [id number] 325mg Take 1 Un bridget sulfate 325 9-26 tablet by ity of mg (65 mg 00:00: mouth 3 [place] iron) 00 (three) Medical tablet times Branch daily with meals. ascorbic Yes [id number] 500mg Take 1 U nivers acid, 9-26 tablet by ity of vitamin C, 00:00: mouth 2 [place] 500 mg 00 (two) Medical tablet times Branch daily. ferrous Yes [id number] 325mg Take 1 Un bridget sulfate 325 9-26 tablet by ity of mg (65 mg 00:00: mouth 3 [place] iron) 00 (three) Medical tablet times Branch daily with meals. ascorbic Yes [id number] 500mg Take 1 U nivers acid, 9-26 tablet by ity of vitamin C, 00:00: mouth 2 [place] 500 mg 00 (two) Medical tablet times Branch daily. ferrous Yes [id number] 325mg Take 1 Un bridget sulfate 325 9-26 tablet by ity of mg (65 mg 00:00: mouth 3 [place] iron) 00 (three) Medical tablet times Branch daily with meals. ascorbic Yes [id number] 500mg Take 1 U nivers acid, 9-26 tablet by ity of vitamin C, 00:00: mouth 2 [place] 500 mg 00 (two) Medical tablet times Branch daily. ferrous Yes [id number] 325mg Take 1 Un bridget sulfate 325 9-26 tablet by ity of mg (65 mg 00:00: mouth 3 [place] iron) 00 (three) Medical tablet times Branch daily with meals. ascorbic Yes [id number] 500mg Take 1 U nivers acid, 9-26 tablet by ity of vitamin C, 00:00: mouth 2 [place] 500 mg 00 (two) Medical tablet times Branch daily. ferrous Yes [id number] 325mg Take 1 Un bridget sulfate 325 9-26 tablet by ity of mg (65 mg 00:00: mouth 3 [place] iron) 00 (three) Medical tablet times Branch daily with meals. ascorbic Yes [id number] 500mg Take 1 U nivers acid, 9-26 tablet by ity of vitamin C, 00:00: mouth 2 [place] 500 mg 00 (two) Medical tablet times Branch daily. ferrous Yes [id number] 325mg Take 1 Un bridget sulfate 325 9-26 tablet by ity of mg (65 mg 00:00: mouth 3 [place] iron) 00 (three) Medical tablet times Branch daily with meals. ascorbic Yes [id number] 500mg Take 1 U nivers acid, 9-26 tablet by ity of vitamin C, 00:00: mouth 2 [place] 500 mg 00 (two) Medical tablet times Branch daily. ferrous Yes [id number] 325mg Take 1 Un bridget sulfate 325 9-26 tablet by ity of mg (65 mg 00:00: mouth 3 [place] iron) 00 (three) Medical tablet times Branch daily with meals. ascorbic Yes [id number] 500mg Take 1 U nivers acid, 9-26 tablet by ity of vitamin C, 00:00: mouth 2 [place] 500 mg 00 (two) Medical tablet times Branch daily. ferrous Yes [id number] 325mg Take 1 Un bridget sulfate 325 9-26 tablet by ity of mg (65 mg 00:00: mouth 3 [place] iron) 00 (three) Medical tablet times Branch daily with meals. ascorbic Yes [id number] 500mg Take 1 U nivers acid, 9-26 tablet by ity of vitamin C, 00:00: mouth 2 [place] 500 mg 00 (two) Medical tablet times Branch daily. ferrous Yes [id number] 325mg Take 1 Un bridget sulfate 325 9-26 tablet by ity of mg (65 mg 00:00: mouth 3 [place] iron) 00 (three) Medical tablet times Branch daily with meals. ascorbic Yes [id number] 500mg Take 1 U nivers acid, 9-26 tablet by ity of vitamin C, 00:00: mouth 2 [place] 500 mg 00 (two) Medical tablet times Branch daily. ferrous Yes [id number] 325mg Take 1 Un bridget sulfate 325 9-26 tablet by ity of mg (65 mg 00:00: mouth 3 [place] iron) 00 (three) Medical tablet times Branch daily with meals. ascorbic Yes [id number] 500mg Take 1 U nivers acid, 9-26 tablet by ity of vitamin C, 00:00: mouth 2 [place] 500 mg 00 (two) Medical tablet times Branch daily. ferrous Yes [id number] 325mg Take 1 Un bridget sulfate 325 9-26 tablet by ity of mg (65 mg 00:00: mouth 3 [place] iron) 00 (three) Medical tablet times Branch daily with meals. ascorbic Yes [id number] 500mg Take 1 U nivers acid, 9-26 tablet by ity of vitamin C, 00:00: mouth 2 [place] 500 mg 00 (two) Medical tablet times Branch daily. ferrous Yes [id number] 325mg Take 1 Un bridget sulfate 325 9-26 tablet by ity of mg (65 mg 00:00: mouth 3 [place] iron) 00 (three) Medical tablet times Branch daily with meals. ascorbic Yes [id number] 500mg Take 1 U nivers acid, 9-26 tablet by ity of vitamin C, 00:00: mouth 2 [place] 500 mg 00 (two) Medical tablet times Branch daily. ferrous Yes [id number] 325mg Take 1 Un bridget sulfate 325 9-26 tablet by ity of mg (65 mg 00:00: mouth 3 [place] iron) 00 (three) Medical tablet times Branch daily with meals. ascorbic Yes [id number] 500mg Take 1 U nivers acid, 9-26 tablet by ity of vitamin C, 00:00: mouth 2 [place] 500 mg 00 (two) Medical tablet times Branch daily. ferrous Yes [id number] 325mg Take 1 Un bridget sulfate 325 9-26 tablet by ity of mg (65 mg 00:00: mouth 3 [place] iron) 00 (three) Medical tablet times Branch daily with meals. ascorbic Yes [id number] 500mg Take 1 U nivers acid, 9-26 tablet by ity of vitamin C, 00:00: mouth 2 [place] 500 mg 00 (two) Medical tablet times Branch daily. ferrous Yes [id number] 325mg Take 1 Un bridget sulfate 325 9-26 tablet by ity of mg (65 mg 00:00: mouth 3 [place] iron) 00 (three) Medical tablet times Branch daily with meals. ascorbic Yes [id number] 500mg Take 1 U nivers acid, 9-26 tablet by ity of vitamin C, 00:00: mouth 2 [place] 500 mg 00 (two) Medical tablet times Branch daily. ferrous Yes [id number] 325mg Take 1 Un bridget sulfate 325 9-26 tablet by ity of mg (65 mg 00:00: mouth 3 [place] iron) 00 (three) Medical tablet times Branch daily with meals. ascorbic Yes [id number] 500mg Take 1 U nivers acid, 9-26 tablet by ity of vitamin C, 00:00: mouth 2 [place] 500 mg 00 (two) Medical tablet times Branch daily. ferrous Yes [id number] 325mg Take 1 Un bridget sulfate 325 9-26 tablet by ity of mg (65 mg 00:00: mouth 3 [place] iron) 00 (three) Medical tablet times Branch daily with meals. ascorbic Yes [id number] 500mg Take 1 U nivers acid, 9-26 tablet by ity of vitamin C, 00:00: mouth 2 [place] 500 mg 00 (two) Medical tablet times Branch daily. 2020- Yes [id number] Take by [facility] vit 03-20 mouth. ity of calc,iron,f 14:11: [place] [address] Medical ( Branch VITAMIN ORAL) Yes [id number] Take by [facility] vit 03-20 mouth. ity of calc,iron,f 14:11: [place] [address] Medical ( Branch VITAMIN ORAL) 2020- Yes [id number] Take by [facility] vit 03-20 mouth. ity of calc,iron,f 14:11: [place] [address] Medical ( Branch VITAMIN ORAL) 2021-0 Yes [id number] Take by Univers vit 03-20 mouth. ity of calc,iron,f 14:11: [place] ic Medical ( Branch VITAMIN ORAL) Yes [id number] Take by Univers vit 03-20 mouth. ity of calc,iron,f 14:11: [place] ic Medical ( Branch VITAMIN ORAL) Yes [id number] Take by Univers vit 03-20 mouth. ity of calc,iron,f 14:11: [place] ic Medical ( Branch VITAMIN ORAL) Yes [id number] Take by Univers vit 03-20 mouth. ity of calc,iron,f 14:11: [place] [address] Medical ( Branch VITAMIN ORAL) Immunizations Ordered Filled Immunization Date Status Comments [facility] e Immunization Name Name Rho (d) Immune 2021-09-05 Completed University of Globulin 00:00:00 [facility] Rho (d) Immune 2021-09-05 Completed University of Globulin 00:00:00 [facility] Rho (d) Immune 2021-09-05 Completed University of Globulin 00:00:00 [facility] Rho (d) Immune 2021-09-05 Completed University of Globulin 00:00:00 [facility] Rho (d) Immune 2021-09-05 Completed University of Globulin 00:00:00 [facility] Rho (d) Immune 2021-07-03 Completed University of Globulin 00:00:00 [facility] Rho (d) Immune 2021-07-03 Completed University of Globulin 00:00:00 [facility] Rho (d) Immune 2021-07-03 Completed University of Globulin 00:00:00 [facility] Rho (d) Immune 2021-07-03 Completed University of Globulin 00:00:00 [facility] Rho (d) Immune 2021-07-03 Completed University of Globulin 00:00:00 [facility] Rho (d) Immune 2021-07-03 Completed University of Globulin 00:00:00 [facility] Rho (d) Immune 2021-07-03 Completed University of Globulin 00:00:00 [facility] Rho (d) Immune 2021-07-03 Completed University of Globulin 00:00:00 [facility] Rho (d) Immune 2021-07-03 Completed University of Globulin 00:00:00 [place] [facility] Rho (d) Immune 2021-07-03 Completed University of Globulin 00:00:00 [facility] Branch Rho (d) Immune 2021-07-03 Completed University of Globulin 00:00:00 [facility] Branch Rho (d) Immune 2021-07-03 Completed University of Globulin 00:00:00 [facility] Branch Rho (d) Immune 2021-07-03 Completed University of Globulin 00:00:00 [facility] Branch Rho (d) Immune 2021-07-03 Completed University of Globulin 00:00:00 [facility] Branch Rho (d) Immune 2021-07-03 Completed University of Globulin 00:00:00 [facility] Branch Rho (d) Immune 2021-07-03 Completed University of Globulin 00:00:00 [facility] Branch Rho (d) Immune 2021-07-03 Completed University of Globulin 00:00:00 [facility] Branch Rho (d) Immune 2021-07-03 Completed University of Globulin 00:00:00 [facility] Branch Rho (d) Immune 2021-07-03 Completed University of Globulin 00:00:00 [facility] Branch Rho (d) Immune 2021-07-03 Completed University of Globulin 00:00:00 [facility] Branch Rho (d) Immune 2020-06-02 Completed University of Globulin 00:00:00 [facility] Branch Rho (d) Immune 2020-06-02 Completed University of Globulin 00:00:00 [facility] Branch Rho (d) Immune 2020-06-02 Completed University of Globulin 00:00:00 [facility] Branch Rho (d) Immune 2020-06-02 Completed University of Globulin 00:00:00 [facility] Branch Rho (d) Immune 2020-06-02 Completed University of Globulin 00:00:00 [facility] Branch Rho (d) Immune 2020-06-02 Completed University of Globulin 00:00:00 [facility] Branch Rho (d) Immune 2020-06-02 Completed University of Globulin 00:00:00 [facility] Branch Rho (d) Immune 2020-06-02 Completed University of Globulin 00:00:00 [facility] Branch Rho (d) Immune 2020-06-02 Completed University of Globulin 00:00:00 [facility] Branch Rho (d) Immune 2020-06-02 Completed University of Globulin 00:00:00 [facility] Branch Rho (d) Immune 2020-06-02 Completed University of Globulin 00:00:00 [facility] Branch Rho (d) Immune 2020-06-02 Completed University of Globulin 00:00:00 [facility] Branch Rho (d) Immune 2020-06-02 Completed University of Globulin 00:00:00 [facility] Branch Rho (d) Immune 2020-06-02 Completed University of Globulin 00:00:00 [facility] Branch Rho (d) Immune 2020-06-02 Completed University of Globulin 00:00:00 [facility] Branch Rho (d) Immune 2020-06-02 Completed University of Globulin 00:00:00 [facility] Branch Rho (d) Immune 2020-06-02 Completed University of Globulin 00:00:00 [facility] Branch Rho (d) Immune 2020-06-02 Completed University of Globulin 00:00:00 [facility] Branch Rho (d) Immune 2020-06-02 Completed University of Globulin 00:00:00 [facility] Branch Rho (d) Immune 2020-06-02 Completed University of Globulin 00:00:00 [facility] Branch Rho (d) Immune 2020-03-27 Completed University of Globulin 00:00:00 [facility] Branch Rho (d) Immune 2020-03-27 Completed University of Globulin 00:00:00 [facility] Branch Rho (d) Immune 2020-03-27 Completed University of Globulin 00:00:00 [facility] Branch Rho (d) Immune 2020-03-27 Completed University of Globulin 00:00:00 [facility] Branch Rho (d) Immune 2020-03-27 Completed University of Globulin 00:00:00 [facility] Branch Rho (d) Immune 2020-03-27 Completed University of Globulin 00:00:00 [facility] Branch Rho (d) Immune 2020-03-27 Completed University of Globulin 00:00:00 [facility] Branch Rho (d) Immune 2020-03-27 Completed [facility] Gl[facility] 00:00:00 [facility] Rho (d) Immune 2020-03-27 Completed [facility] Globulin 00:00:00 [facility] Rho (d) Immune 2020-03-27 Completed [facility] Globulin 00:00:00 [facility] Rho (d) Immune 2020-03-27 Completed [facility] Globulin 00:00:00 [facility] Rho (d) Immune 2020-03-27 Completed [facility] Globulin 00:00:00 [facility] Rho (d) Immune 2020-03-27 Completed [facility] Globulin 00:00:00 [facility] Rho (d) Immune 2020-03-27 Completed [facility] Gl[facility]ulin 00:00:00 [facility] Rho (d) Immune 2020-03-27 Completed [facility] Globulin 00:00:00 [facility] Rho (d) Immune 2020-03-27 Completed [facility] Globulin 00:00:00 [facility] Rho (d) Immune 2020-03-27 Completed [facility] Globulin 00:00:00 [facility] Rho (d) Immune 2020-03-27 Completed [facility] Globulin 00:00:00 [facility] Rho (d) Immune 2020-03-27 Completed [facility] Globulin 00:00:00 [facility] Rho (d) Immune 2020-03-27 Completed [facility] Globulin 00:00:00 [facility] TDAP 2020-03-22 Completed University of 00:00:00 [facility] TDAP 2020-03-22 Completed University of 00:00:00 [facility] TDAP 2020-03-22 Completed University of 00:00:00 [facility] TDAP 2020-03-22 Completed University of 00:00:00 [facility] TDAP 2020-03-22 Completed University of 00:00:00 [facility] TDAP 2020-03-22 Completed University of 00:00:00 [facility] TDAP 2020-03-22 Completed University of 00:00:00 [facility] TDAP 2020-03-22 Completed University of 00:00:00 [facility] TDAP 2020-03-22 Completed University of 00:00:00 [facility] TDAP 2020-03-22 Completed University of 00:00:00 [facility] TDAP 2020-03-22 Completed University of 00:00:00 [facility] TDAP 2020-03-22 Completed University of 00:00:00 [facility] TDAP 2020-03-22 Completed University of 00:00:00 [facility] TDAP 2020-03-22 Completed University of 00:00:00 [facility] TDAP 2020-03-22 Completed University of 00:00:00 [facility] TDAP 2020-03-22 Completed University of 00:00:00 [facility] TDAP 2020-03-22 Completed University of 00:00:00 [facility] TDAP 2020-03-22 Completed University of 00:00:00 [facility] TDAP 2020-03-22 Completed University of 00:00:00 [facility] TDAP 2020-03-22 Completed University of 00:00:00 [facility] Rho (d) Immune 2019-11-29 Completed [facility] Globulin 00:00:00 [facility] Rho (d) Immune 2019-11-29 Completed [facility] Globulin 00:00:00 [facility] Rho (d) Immune 2019-11-29 Completed [facility] Globulin 00:00:00 [facility] Rho (d) Immune 2019-11-29 Completed [facility] Globulin 00:00:00 [facility] Rho (d) Immune 2019-11-29 Completed [facility] Globulin 00:00:00 [facility] Rho (d) Immune 2019-11-29 Completed [facility] Globulin 00:00:00 [facility] Rho (d) Immune 2019-11-29 Completed [facility] Globulin 00:00:00 [facility] Rho (d) Immune 2019-11-29 Completed [facility] Globulin 00:00:00 [facility] Rho (d) Immune 2019-11-29 Completed [facility] Gl[facility]ulin 00:00:00 [facility] Rho (d) Immune 2019-11-29 Completed [facility] Globulin 00:00:00 [facility] Rho (d) Immune 2019-11-29 Completed [facility] Globulin 00:00:00 [facility] Rho (d) Immune 2019-11-29 Completed [facility] Globulin 00:00:00 [facility] Rho (d) Immune 2019-11-29 Completed [facility] Globulin 00:00:00 [facility] Rho (d) Immune 2019-11-29 Completed [facility] Gl[facility]ulin 00:00:00 [facility] Rho (d) Immune 2019-11-29 Completed [facility] Globulin 00:00:00 [facility] Rho (d) Immune 2019-11-29 Completed [facility] Globulin 00:00:00 [facility] Rho (d) Immune 2019-11-29 Completed [facility] Globulin 00:00:00 [facility] Rho (d) Immune 2019-11-29 Completed [facility] Globulin 00:00:00 [facility] Rho (d) Immune 2019-11-29 Completed [facility] Globulin 00:00:00 [facility] Rho (d) Immune 2019-11-29 Completed [facility] Globulin 00:00:00 [facility] Rho (d) Immune 2018-08-03 Completed [facility] Globulin 00:00:00 [facility] Rho (d) Immune 2018-08-03 Completed [facility] Globulin 00:00:00 [facility] Rho (d) Immune 2018-08-03 Completed [facility] Globulin 00:00:00 [facility] Rho (d) Immune 2018-08-03 Completed [facility] Globulin 00:00:00 [facility] Rho (d) Immune 2018-08-03 Completed [facility] Globulin 00:00:00 [facility] Rho (d) Immune 2018-08-03 Completed [facility] Globulin 00:00:00 [facility] Rho (d) Immune 2018-08-03 Completed [facility] Gl[facility]ulin 00:00:00 [facility] Rho (d) Immune 2018-08-03 Completed [facility] Gl[facility]ulin 00:00:00 [facility] Rho (d) Immune 2018-08-03 Completed [facility] Gl[facility]ulin 00:00:00 [facility] Rho (d) Immune 2018-08-03 Completed [facility] Globulin 00:00:00 [facility] Rho (d) Immune 2018-08-03 Completed [facility] Gl[facility]ulin 00:00:00 [facility] Rho (d) Immune 2018-08-03 Completed [facility] Globulin 00:00:00 [facility] Rho (d) Immune 2018-08-03 Completed [facility] Gl[facility]ulin 00:00:00 [facility] Rho (d) Immune 2018-08-03 Completed [facility] Gl[facility]ulin 00:00:00 [facility] Rho (d) Immune 2018-08-03 Completed [facility] Gl[facility]ulin 00:00:00 [facility] Rho (d) Immune 2018-08-03 Completed [facility] Gl[facility]ulin 00:00:00 [facility] Rho (d) Immune 2018-08-03 Completed [facility] Gl[facility]ulin 00:00:00 [facility] Rho (d) Immune 2018-08-03 Completed [facility] Globulin 00:00:00 [facility] Rho (d) Immune 2018-08-03 Completed [facility] Globulin 00:00:00 [facility] Rho (d) Immune 2018-08-03 Completed [facility] Globulin 00:00:00 [facility] TDAP 2012-07-23 Completed University of 00:00:00 [facility] TDAP 2012-07-23 Completed University of 00:00:00 [facility] TDAP 2012-07-23 Completed University of 00:00:00 [facility] TDAP 2012-07-23 Completed University of 00:00:00 [facility] TDAP 2012-07-23 Completed University of 00:00:00 [facility] TDAP 2012-07-23 Completed University of 00:00:00 [facility] TDAP 2012-07-23 Completed University of 00:00:00 [facility] TDAP 2012-07-23 Completed University of 00:00:00 [facility] TDAP 2012-07-23 Completed University of 00:00:00 [facility] TDAP 2012-07-23 Completed University of 00:00:00 [facility] TDAP 2012-07-23 Completed University of 00:00:00 [facility] TDAP 2012-07-23 Completed University of 00:00:00 [facility] TDAP 2012-07-23 Completed University of 00:00:00 [facility] TDAP 2012-07-23 Completed University of 00:00:00 [facility] TDAP 2012-07-23 Completed University of 00:00:00 [facility] TDAP 2012-07-23 Completed University of 00:00:00 [facility] TDAP 2012-07-23 Completed University of 00:00:00 [facility] TDAP 2012-07-23 Completed University of 00:00:00 [facility] TDAP 2012-07-23 Completed University of 00:00:00 [facility] TDAP 2012-07-23 Completed University of 00:00:00 [facility] Rubella 2011-02-03 Completed University of 00:00:00 [facility] Rubella 2011-02-03 Completed University of 00:00:00 [facility] Rubella 2011-02-03 Completed University of 00:00:00 [facility] Rubella 2011-02-03 Completed University of 00:00:00 [facility] Rubella 2011-02-03 Completed University of 00:00:00 [facility] Rubella 2011-02-03 Completed University of 00:00:00 [facility] Rubella 2011-02-03 Completed University of 00:00:00 [facility] Rubella 2011-02-03 Completed University of 00:00:00 [facility] Rubella 2011-02-03 Completed University of 00:00:00 [facility] Rubella 2011-02-03 Completed University of 00:00:00 [facility] Rubella 2011-02-03 Completed University of 00:00:00 [facility] Rubella 2011-02-03 Completed University of 00:00:00 [facility] Rubella 2011-02-03 Completed University of 00:00:00 [facility] Rubella 2011-02-03 Completed University of 00:00:00 [facility] Rubella 2011-02-03 Completed University of 00:00:00 [facility] Rubella 2011-02-03 Completed University of 00:00:00 [facility] Rubella 2011-02-03 Completed University of 00:00:00 [facility] Rubella 2011-02-03 Completed University of 00:00:00 [facility] Rubella 2011-02-03 Completed University of 00:00:00 [facility] Rubella 2011-02-03 Completed University of 00:00:00 [facility] Vital Signs Vital Name Observation Time Observation Value Comments Source Systolic blood 2021-09-12 22:00:00 128 mm[Hg] Univer sity of pressure [facility] Diastolic blood 2021-09-12 22:00:00 70 mm[Hg] Unive rsity of pressure [facility] Heart rate 2021-09-12 22:00:00 56 /min Universi ty of [facility] Respiratory rate 2021-09-12 22:00:00 18 /min [facility] Oxygen saturation in 2021-09-12 22:00:00 98 /min [facility] Arterial blood by [facility] Pulse oximetry Branch Body temperature 2021-09-12 14:55:00 36.06 Gissel Univ ersity of [facility] Body weight 2021-09-12 14:55:00 85.276 kg Universi ty of [facility] BMI 2021-09-12 14:55:00 34.39 kg/m2 Universi ty of [facility] Body temperature 2021-09-10 20:12:00 36.94 Gissel Univ ersity of [facility] Respiratory rate 2021-09-10 20:12:00 18 /min Univ ersity of [facility] Body height 2021-09-10 20:12:00 157.5 cm Universi ty of [facility] Body weight 2021-09-10 20:12:00 85.276 kg Universi ty of [facility] BMI 2021-09-10 20:12:00 34.39 kg/m2 Universi ty of [facility] Systolic blood 2021-09-10 20:12:00 133 mm[Hg] Univer sity of pressure [facility] Diastolic blood 2021-09-10 20:12:00 81 mm[Hg] Unive rsity of pressure [facility] Heart rate 2021-09-10 20:12:00 85 /min Universi ty of [facility] Systolic blood 2021-09-05 10:08:00 130 mm[Hg] Univer sity of pressure [facility] Diastolic blood 2021-09-05 10:08:00 71 mm[Hg] Unive rsity of pressure [facility] Heart rate 2021-09-05 10:08:00 61 /min Universi ty of [facility] Body temperature 2021-09-05 10:08:00 36.61 Gissel Univ ersity of [facility] Respiratory rate 2021-09-05 10:08:00 16 /min Univ ersity of [facility] Oxygen saturation in 2021-09-05 02:08:00 99 /min University of Arterial blood by [facility] Pulse oximetry Branch Systolic blood 2021-09-03 21:08:00 156 mm[Hg] Univer sity of pressure [facility] Diastolic blood 2021-09-03 21:08:00 97 mm[Hg] Unive rsity of pressure [facility] Heart rate 2021-09-03 21:08:00 71 /min Universi ty of [facility] Respiratory rate 2021-09-03 21:07:00 18 /min Univ ersity of [facility] Body height 2021-09-03 21:07:00 157.5 cm Universi ty of [facility] Body weight 2021-09-03 21:07:00 93.895 kg Universi ty of [facility] BMI 2021-09-03 21:07:00 37.86 kg/m2 Universi ty of [facility] Systolic blood 2021-08-30 22:28:00 135 mm[Hg] Univer sity of pressure [facility] Diastolic blood 2021-08-30 22:28:00 87 mm[Hg] Unive rsity of pressure [facility] Heart rate 2021-08-30 22:28:00 83 /min Universi ty of [facility] Body temperature 2021-08-30 22:28:00 36.67 Gissel Univ ersity of [facility] Respiratory rate 2021-08-30 22:28:00 20 /min Univ ersity of [facility] Body height 2021-08-30 22:28:00 157.5 cm Universi ty of [facility] Body weight 2021-08-30 22:28:00 92.534 kg Universi ty of [facility] BMI 2021-08-30 22:28:00 37.31 kg/m2 Universi ty of [facility] Oxygen saturation in 2021-08-30 22:28:00 98 /min University Arterial blood by [facility] Pulse oximetry Branch Systolic blood 2021-08-26 16:44:00 121 mm[Hg] Univer sity of pressure [facility] Diastolic blood 2021-08-26 16:44:00 75 mm[Hg] Unive rsity of pressure [facility] Heart rate 2021-08-26 16:44:00 86 /min Universi ty of [facility] Body temperature 2021-08-26 16:44:00 36.61 Gissel Univ ersity of [facility] Body height 2021-08-26 16:44:00 160 cm Universi ty of [facility] Body weight 2021-08-26 16:44:00 93.713 kg Universi ty of [facility] BMI 2021-08-26 16:44:00 36.60 kg/m2 Universi ty of [facility] Systolic blood 2021-08-23 17:22:00 138 mm[Hg] Univer sity of pressure [facility] Diastolic blood 2021-08-23 17:22:00 86 mm[Hg] Unive rsity of pressure [facility] Heart rate 2021-08-23 17:21:00 73 /min Universi ty of [facility] Body temperature 2021-08-23 17:21:00 36.83 Gissel Univ ersity of [facility] Body height 2021-08-23 17:21:00 160 cm Universi ty [facility] Body weight 2021-08-23 17:21:00 92.987 kg [facility] BMI 2021-08-23 17:21:00 36.31 kg/m2 Universi ty of [facility] Systolic blood 2021-08-06 17:02:00 130 mm[Hg] Univer sity of pressure [facility] Diastolic blood 2021-08-06 17:02:00 79 mm[Hg] Unive rsity of pressure [facility] Heart rate 2021-08-06 17:02:00 60 /min Universi ty of [facility] Body temperature 2021-08-06 17:02:00 36.78 Gissel Univ ersity of [facility] Respiratory rate 2021-08-06 17:02:00 18 /min [facility] Body height 2021-08-06 17:02:00 160 cm Universi ty [facility] Body weight 2021-08-06 17:02:00 92.534 kg Universi ty of [facility] BMI 2021-08-06 17:02:00 36.14 kg/m2 Universi ty of [facility] Systolic blood 2021-07-18 22:42:00 132 mm[Hg] Univer sity of pressure [facility] Diastolic blood 2021-07-18 22:42:00 86 [facility]Hg[facility] 2021-07-18 22:42:00 79 /min Universi ty of [facility] Body temperature 2021-07-18 22:42:00 36.44 Gissel [facility] Respiratory rate 2021-07-18 22:42:00 18 /min [facility] Body height 2021-07-18 22:42:00 160 cm Universi ty [facility] Body weight 2021-07-18 22:42:00 91.627 kg Universi ty [facility] BMI 2021-07-18 22:42:00 35.78 kg/m2 Universi [facility] Procedures Procedure Date / Time Performing Clinician Source Performed PREPARE PACKED RBC 2021-09-12 22:06:17 [facility] 2021-09-12 18:06:00 Martín Morgan [facility] TRANSVAGINAL [facility] COVID-19 (ID NOW RAPID 2021-09-12 15:32:00 Martín Morgan [facility] TESTING) [facility] MAGNESIUM 2021-09-12 15:11:00 Martín Morgan [facility] COMP. METABOLIC PANEL 2021-09-12 15:11:00 Martín Morgan [facility] ([id number]) [facility] CBC WITH DIFF 2021-09-12 15:11:00 Martín Morgan [facility] PROTHROMBIN TIME / INR 2021-09-12 15:11:00 Martín Morgan [facility] ACTIVATED PARTIAL 2021-09-12 15:11:00 Martín Morgan [facility] THRMPLAS FRANCOIS [facility] URINALYSIS 2021-09-12 15:11:00 Fabian [facility] ANTI-D R/O PANEL 2021-09-12 15:10:00 Fabian [facility] HB ABO GROUPING 2021-09-12 15:10:00 Fabian [facility] CONSENT/REFUSAL FOR 2021-09-12 14:49:14 Doctor Unassigned, No [facility] DIAGNOSIS AND TREATMENT Name [facility] CBC WITH DIFF 2021-09-05 10:11:00 Fish, [facility] HB -MATERNAL 2021-09-05 10:10:00 Adum, Jessica Carroll [facility] HEMORRHAGE SCREEN [facility] COMP. METABOLIC PANEL 2021-09-04 00:47:00 Isaac, [facility] ([id number]) Medical [facility] CBC WITH DIFF 2021-09-04 00:47:00 Isaac, [facility] HEPATITIS B SURFACE 2021-09-04 00:47:00 Fish, [facility] ANTIGEN [facility] ADC OR PAKO ONLY - 2021-09-04 00:47:00 Fish, [facility] RPR [facility] PROTEIN CREAT RATIO 2021-09-04 00:47:00 Fish, [facility] URINE RANDOM [facility] HIV 1/2 AG-AB WITH 2021-09-04 00:47:00 Fish, [facility] REFLEX [facility] COVID-19 (ID NOW RAPID 2021-09-04 00:47:00 Isaac [facility] TESTING) [facility] HB ABO GROUPING 2021-09-04 00:35:00 [facility] RHO (D) IMMUNE GLOBULIN 2021-09-04 00:35:00 [facility] ASSIGNMENT OF BENEFITS 2021-09-04 00:08:39 Doctor Unassigned, No [facility] Name [facility] POCT URINALYSIS W/O 2021-08-30 22:29:00 Adum, Jessica Carroll [facility] SPECIFIC [facility] DSU PRE-OP 2021-08-23 06:01:00 Doctor Unassigned, No [facility] POCT URINALYSIS W/O 2021-08-23 00:00:00 Adum, Jessica Carroll [facility] POCT URINALYSIS W/O 2021-08-06 00:00:00 Adum, Jessica Carroll [facility] STERILIZATION CONSENT 2021-07-18 06:01:00 Doctor Unassigned, No [facility] POCT URINALYSIS W/O 2021-07-18 00:00:00 Adum, Jessica Carroll [facility] CBC WITH DIFF 2021-07-03 16:20:00 Adum, Jessica [facility] HB ABO GROUPING 2021-07-03 16:11:00 Adum, [facility] Encounters Start End Encounter Admission Attending Care Care Encounter Source Date/Time Date/Time Type Type Clinicians Facility Department ID 2021-09-12 2021-09-12 [facility] [id number] Univers 09:56:00 17:06:00 MARTÍN itdominick [facility] 2021-09-12 2021-09-12 [facility] [id number] Univers 09:56:00 17:06:00 Martín MONTIEL [id number] i ty of [place] [id number] [facility] [id number] [place] [id number] Leon 2021-09-12 2021-09-12 Telephone [facility], [facility] [id number] Univers 00:00:00 00:00:00 Jessica MONTIEL [id number] ity of [place] [id number] [facility] PROFESSIO [id number] Nd dical [facility] [address] [facility] 2021-09-12 2021-09-12 Telephone Daquan Miller [facility] [id number] Univers 00:00:00 00:00:00 Burak MONTIEL [id number] i ty [place] [id number] [place] [facility] [id number] Nd dical NAL 134 [facility] 2021-09-10 2021-09-10 Nurse Nurse, [facility] [id number] Univers 14:30:00 15:13:57 Visit AdJessica pike [id number] ity [facility] [id number] [facility] [id number] Nd dical [address] 2021-09-10 2021-09-10 Outpatient R [facility] [id number] Univers 14:30:00 14:30:00 [id number] ity [facility] 2021-09-10 2021-09-10 Outpatient R ADUM, [facility] [id number] Univers 14:30:00 14:30:00 JESSICA ity [facility] 2021-09-06 2021-09-06 Outpatient R ADUM, [facility] [id number] Univers 16:15:00 16:15:00 JESSICA ity [facility] 2021-09-06 2021-09-06 Outpatient R ADUM, [facility] [id number] Univers 16:15:00 16:15:00 JESSICA [id number] ity [facility] 2021-09-03 2021-09-05 [facility] Karo Gray [facility] [id number] Univers 18:15:00 09:43:00 Encounter AdJessica pike [id number] ity [facility] [id number] [id number] [facility] 083 Leon 2021-09-03 2021-09-03 Outpatient R ADUM, [facility] MARLEEN [id number] Univers 14:30:00 15:35:57 JESSICA ity [facility] 2021-09-03 2021-09-03 Nurse Nurse, [facility] [id number] Univers 14:30:00 14:45:00 Visit AdJessica pike [id number] ity [facility] [id number] [id number] Nd dical [address] 2021-09-03 2021-09-03 Outpatient R [facility] [id number] Univers 14:30:00 14:30:00 [id number] ity [facility] 2021-09-03 2021-09-03 Outpatient R ADUM, [facility] [id number] Univers 14:30:00 14:30:00 JESSICA ity [facility] 2021-09-03 2021-09-03 Orders Doctor LOVE [id number] Univers 00:00:00 00:00:00 Only Unassigned, REY [id number] ity of [facility] [id number] [place] as [id number] [address] 2021-08-30 2021-08-30 [facility] [id number] Univers 16:15:00 16:46:57 JESSICA ity [facility] 2021-08-30 2021-08-30 Routine [facility] [place] 1.2.840.114 [id number] Univers 16:15:00 16:46:57 Jessica MONTIEL 350.1.13.10 ity of [facility] [place] [id number] Nd dical [address] 2021-08-30 2021-08-30 Outpatient R ADUM, [facility] [id number] -[id number] Univers 08:45:00 08:45:00 JESSICA [id number] ity [facility] 2021-08-28 2021-08-28 Telephone [facility] [place] [id number] Univers 00:00:00 00:00:00 Jessica MONTIEL 350.1.13.10 ity of [place] [id number] Nd dical [address] 2021-08-26 2021-08-26 Outpatient R [facility] [id number] -[id number] Univers 11:15:00 11:15:00 [id number] ity [facility] 2021-08-26 2021-08-26 Outpatient R ADUM, [facility] [id number] Univers 11:15:00 11:15:00 JESSICA itdominick [facility] 2021-08-26 2021-08-26 Machine Cell Tuber 2, [facility] Lab [facility] 1.2.840.114 [id number] Univers 11:15:00 11:15:00 Visit Adum, Jessica Glen MONTIEL 350.1.13.10 ity of [facility] [place] [id number] Nd dical NAL 353 [facility] 2021-08-26 2021-08-26 Nurse Nurse, [facility] 1.2.840.114 [id number] Univers 10:00:00 10:46:20 Visit Adum, Jessica Carroll DINESH 350.1.13.10 it[place] of [place] [id number] Nd dical NAL 134 [facility] 2021-08-23 2021-08-23 Outpatient R ADUM, [facility] [id number] -[id number] Univers 14:00:00 14:00:00 JESSICA [id number] ity [facility] 2021-08-23 2021-08-23 Outpatient R ADUM, [facility] [id number] Univers 14:00:00 14:00:00 JESSICA ity [facility] 2021-08-23 2021-08-23 Routine Adum, [facility] 1.2.840.114 [id number] Univers 10:45:00 11:41:50 Jessica Carroll DINESH 350.1.13.10 ity of [place] [id number] Nd dical NAL 134 [facility] 2021-08-23 2021-08-23 Orders Doctor LOVE 1.2.840.114 [id number] Univers 00:00:00 00:00:00 Only Unassigned, REY 350.1.13.10 ity of [facility] 4.2.7.2.686 Som as [id number] [address] 2021-08-06 2021-08-06 Outpatient R ADUM, [facility] [id number] Univers 10:45:00 11:30:37 JESSICA ity [facility] 2021-08-06 2021-08-06 Routine Adum, [facility] 1.2.840.114 [id number] Univers 10:45:00 11:30:37 Jessica Carroll DINESH 350.1.13.10 ity of [place] [id number] Nd dical [address] 2021-08-06 2021-08-06 Outpatient R ADUM, [facility] [id number] Univers 10:45:00 10:45:00 JESSICA [id number] ity [facility] 2021-08-02 2021-08-02 Outpatient R ADUM, [facility] [id number] -20 Univers 13:15:00 13:15:00 JESSICA [id number] ity [facility] 2021-08-02 2021-08-02 Outpatient R ADUM, [facility] [id number] Univers 13:15:00 13:15:00 JESSICA ity [facility] 2021-08-02 2021-08-02 Telephone Adum, [facility] 1.2.809.838 [id number] Univers 00:00:00 00:00:00 Jessica Glen MONTIEL 350.1.13.10 ity of [place] [id number] Nd dic[address] 2021-07-31 2021-07-31 Outpatient R ADUM, [facility] [id number] -[id number] Univers 13:15:00 13:15:00 JESSICA [id number] ity [facility] 2021-07-31 2021-07-31 Outpatient R ADUM, [facility] [id number] Univers 13:15:00 13:15:00 JESSICA ity [facility] 2021-07-30 2021-07-30 Laboratory Only, Ang Db Test [facility] 1.2.8 40.114 [id number] Univers 12:30:00 12:45:00 Only Unknown, Attending HEALTH 350.1.13.10 ity of [place] 4.2.7.2.686 Som as QUAN?BLEA [id number] Me dical KNEY [address] [facility] 2021-07-30 2021-07-30 Outpatient R [facility] [id number] -[id number] Univers 12:30:00 12:30:00 [id number] ity [facility] 2021-07-30 2021-07-30 Outpatient R GREEN, [facility] [id number] Univers 12:30:00 12:30:00 ROLY ity [facility] 2021-07-18 2021-07-18 Outpatient R ADUM, [facility] [id number] Univers 16:15:00 17:03:01 JESSICA [facility] 2021-07-18 2021-07-18 Routine [facility] 1.2.840.114 [id number] Univers 16:15:00 17:03:01 Jessica MONTIEL 350.1.13.10 ity of [facility] 4.2.[place].2.[place] PROF[place] [id number] Me dical NAL [address] 2021-07-18 2021-07-18 Outpatient R ADUM, [facility] [id number] -20 Univers 16:15:00 16:15:00 [id number] 2021-07-18 Orders Doctor IVAN 1.2.840.114 [id number] Univers 00:00:00 00:00:00 Only Unassigned, REY 350.1.13.10 ity of [place] [facility] 4.2.7.2.686 Som as [id number] [address] 2021-07-17 2021-07-17 Outpatient R AD, [facility] [id number] Univers 10:45:00 10:45:00 [facility] 2021-07-09 2021-07-09 Machine Cell Tuber Ultrasound, [facility] 1.2 .840.114 [id number] Univers 11:15:00 11:44:10 Visit Daquan Miller 350.1.13.10 it[place] of [place] [phone] Nd dical NAL 134 [facility] 2021-07-09 2021-07-09 Outpatient P DAQUAN MILLER [facility] [id number] Univers 11:15:00 11:15:00 ity [facility] 2021-07-03 2021-07-03 Machine Cell Tuber 2, [facility] Lab [facility] 1.2.840.114 [id number] [facility] 08:30:00 10:04:07 Visit [facility]isca Little[facility]1.13.10 [facility] 4.2.7.2.686 Albert fernández BETTEJAMAL [id number] Nd dical NAL 353 [facility] Results Test Description Test Time Test Comments Results Result Comments Source ANTI-D R/O PANEL 2021-09-12 21:19:46 Test Item Value Reference Range Interpretation Comme nts ANTIBODY (test code = 683) Anti-D Probable RhIg RhIg received on 09/05/21Performed at [facility] Laborat ory Services - [facility] Blood [address] [place] [address]Mrjr Free: [phone] A No. [id number] [facility] Screen - ONCE [id number] 16:01:11 Test Item Value Reference Range Interpretation Comments ABO & RH (test code O Negative Performe d at [facility] = 20) Laboratory Serv [facility] Blood [address] [place], [place] [id number] Free: [phone] A No. [id number] IAT (test code = Positive Performed a t [facility] 1185) Laboratory Serv [facility] Blood [address] [place], [place] [address]Toll Free: [phone] A No. [id number] [facility] CenterMAGN[facility]IUM2022-03-17 15:46:37 Test Item Value Reference Range Interpretation Comments MAGNESIUM (test code = 3029952177) 1.9 mg/dL 1.7-2.4 Lab Interpretation (test code = Normal 52131-3) [facility] Center[facility] METABOLIC PANEL ([id number])2021-09-12 15:46:36 Test Item Value Reference Range Interpretation Comments NA (test code = 138 mmol/L 135-145 4250965386) K (test code = 4.4 mmol/L 3.5-5.0 4870428892) CL (test code = 108 mmol/L 98-108 8018074859) CO2 TOTAL (test code = 22 mmol/L 23-31 L 4413273338) AGAP (test code = 2-16 5736692054) BUN (test code = 25 mg/dL 7-23 H 7854110338) GLUCOSE (test code = 99 mg/dL 70-110 9841688686) CREATININE (test code = 0.67 mg/dL 0.50-1.04 3328090416) TOTAL BILI (test code = 0.4 mg/dL 0.1-1.0 4254502723) CALCIUM (test code = 8.7 mg/dL 8.6-10.6 0367441697) T PROTEIN (test code = 6.9 g/dL 6.3-8.2 1793402128) ALBUMIN (test code = 3.8 g/dL 3.5-5.0 9036797632) ALK PHOS (test code = 103 U/L 34-122 8987022812) ALTv (test code = 18 U/L 5-35 1742-6) AST(SGOT) (test code = 24 U/L 13-40 1255467884) eGFR (test code = mL/min/1.73m2 0246561827) [place] (test code = [place]) Association of Glomerular Filtration Rate (GFR) and Staging of Kidney Disease* + --+ --+ ------+| GFR (mL/min/1.73 m2) ?| With Kidney Damage ?| ?Without Kidney Damage+ --------+ --------+ +| ?>90 ?| ?Stage one ?| ? Normal ?+ ---+ ---+ -------+| ?60-89 ?| ?Stage two ?| ? Decreased GFR ? + --+ --+ ------+| ?30-59 ?| ?Stage three ?| ? Stage three ? + --+ --+ ------+| ?15-29 ?| ?Stage four ? | ? Stage four ?+ ---+ ---+ -------+| ?<15 (or dialysis) ? ?| ?Stage five ? | ? Stage five ?+ ---+ ---+ -------+ *Each stage assumes the associated GFR level has been in effect for at least three months. ?Stages 1 to 5, with or without kidney disease, indicate chronic kidney disease. Notes: Determination of stages one and two (with eGFR >59mL/min/1.73 m2) requires estimation of kidney damage for at least three months as defined by structural or functional abnormalities of the kidney, manifested by either:Pathological abnormalities or Markers of kidney damage (including abnormalities in the composition of the blood or urine or abnormalities in imaging tests). Lab Interpretation Abnormal (test code = 77730-2) [facility] CenterACTIVATED PARTIAL THRMPLAS [id number] 15:31:56 Test Item Value Reference Range Interpretation Comments APTT Patient (test See_Comment [Automat ed code = 3173-2) message] The system which generated this result transmitted reference range : 23 - 38 Seconds . The reference range was not used to interpr et this result as normal/abnormal . [place] (test code = [place]) The [facility] patient population mean normal value for aPTT is 30 seconds. Lab Interpretation Normal (test code = 09900-4) [facility] CenterPROTHROMBIN TIME / [id number] 15:29:35 Test Item Value Reference Range Interpretation Comments PROTIME PATIENT (test See_Comment [Auto mated message] code = 5964-2) The system wh ich generated this result transmitted ref erence range: 12.0 - 1 4.7 Seconds. The re ference range was not u sed to interpret this result as normal/abnor mal. INR (test code = 6301-6) Nor mal INR <1.1; Warfarin Therap eutic range 2.0 to 3. 0 or 2.5 to 3.5, dep ending upon the indica tions. Lab Interpretation (test Normal code = 58121-1) [facility] CenterCBC WITH [id number] 15:20:35 Test Item Value Reference Range Interpretation Comments WBC (test code = See_Comment [Automated 6690-2) message] The sy stem which generated this result transmitted reference range : 4.30 - 11.10 10*3/?L. The reference range was not used to interpret this result as normal/abnormal . RBC (test code = See_Comment [Automated 789-8) message] The sy stem which generated this result transmitted reference range : 3.93 - 5.25 10*6/?L. The reference range was not used to interpret this result as normal/abnormal . HGB (test code = 10.9 g/dL 11.6-15.0 L 718-7) HCT (test code = 35.0 % 35.7-45.2 L 4544-3) MCV (test code = 84.7 fL 80.6-95.5 787-2) MCH (test code = 26.4 pg 25.9-32.8 785-6) MCHC (test code = 31.1 g/dL 31.6-35.1 L 786-4) RDW-SD (test code = 65.5 fL 39.0-49.9 H 29508-0) RDW-CV (test code = 21.9 % 12.0-15.5 H 788-0) PLT (test code = See_Comment [Automated 777-3) message] The sy stem which generated this result transmitted reference range : 166 - 358 10*3/ ?L. The reference r remy was not used to interpret this result as normal/abnormal . MPV (test code = 8.5 fL 9.5-12.9 L 49475-3) NRBC/100 WBC (test See_Comment [Automat ed code = 5315447993) message] The system which generated this result transmitted reference range : 0.0 - 10.0 /100 WBCs. The refer ence range was not u sed to interpret th is result as normal/abnormal . NRBC x10^3 (test code <0.01 See_Comment [Auto mated = 9004923659) message] The s ystem which generated this result transmitted reference range : 10*3/?L. The reference range was not used to interpret this result as normal/abnormal . GRAN MAT (NEUT) % 73.1 % (test code = 770-8) IMM GRAN % (test code 0.60 % = 6105008910) LYMPH % (test code = 17.3 % 736-9) MONO % (test code = 6.3 % 5905-5) EOS % (test code = 2.5 % 713-8) BASO % (test code = 0.2 % 706-2) GRAN MAT x10^3(ANC) 6.12 10*3/uL 1.88-7.09 (test code = 0326005648) IMM GRAN x10^3 (test 0.05 10*3/uL 0.00-0.06 code = 6895288313) LYMPH x10^3 (test code 1.45 10*3/uL 1.32-3.29 = 731-0) MONO x10^3 (test code 0.53 10*3/uL 0.33-0.92 = 742-7) EOS x10^3 (test code = 0.21 10*3/uL 0.03-0.39 711-2) BASO x10^3 (test code <0.03 0.01-0.07 = 704-7) Lab Interpretation Abnormal (test code = 78832-3) [facility] CenterFETAL MATERNAL HEMO [id number] 13:00:05 Test Item Value Reference Range Interpretation Comments SCREEN (test Negative Performed at [facility] code = 846) Laboratory Serv [facility] Blood Bank[address] [place], [place] [address]Toll Free: [phone] A No. [id number] RHIG REQUIRED? (test 1 Syringe Perform ed at [facility] code = 1747) Laboratory Serv [facility] Blood Bank[address] [place], [place] [address]Toll Free: [phone] A No. [id number] [facility] CenterCBC with [id number] 10:59:04 Test Item Value Reference Range Interpretation Comments WBC (test code = See_Comment H [Automated 7990-2) message] The sy stem which generated this result transmitted reference range : 4.30 - 11.10 10*3/?L. The reference range was not used to interpret this result as normal/abnormal . RBC (test code = See_Comment L [Automated 989-8) message] The sy stem which generated this result transmitted reference range : 3.93 - 5.25 10*6/?L. The reference range was not used to interpret this result as normal/abnormal . HGB (test code = 8.9 g/dL 11.6-15.0 L 718-7) HCT (test code = 28.6 % 35.7-45.2 L 4544-3) MCV (test code = 83.6 fL 80.6-95.5 787-2) MCH (test code = 26.0 pg 25.9-32.8 785-6) MCHC (test code = 31.1 g/dL 31.6-35.1 L 786-4) RDW-SD (test code = 65.5 fL 39.0-49.9 H 64937-3) RDW-CV (test code = 22.2 % 12.0-15.5 H 788-0) PLT (test code = See_Comment [Automated 777-3) message] The sy stem which generated this result transmitted reference range : 166 - 358 10*3/ ?L. The reference r remy was not used to interpret this result as normal/abnormal . MPV (test code = 10.7 fL 9.5-12.9 15818-1) NRBC/100 WBC (test See_Comment [Automat ed code = 0277190531) message] The system which generated this result transmitted reference range : 0.0 - 10.0 /100 WBCs. The refer ence range was not u sed to interpret th is result as normal/abnormal . NRBC x10^3 (test code <0.01 See_Comment [Auto mated = 7433322647) message] The s ystem which generated this result transmitted reference range : 10*3/?L. The reference range was not used to interpret this result as normal/abnormal . GRAN MAT (NEUT) % 63.8 % (test code = 770-8) IMM GRAN % (test code 0.50 % = 0903505490) LYMPH % (test code = 27.3 % 736-9) MONO % (test code = 5.4 % 5905-5) EOS % (test code = 2.8 % 713-8) BASO % (test code = 0.2 % 706-2) GRAN MAT x10^3(ANC) 7.14 10*3/uL 1.88-7.09 H (test code = 6265511552) IMM GRAN x10^3 (test 0.06 10*3/uL 0.00-0.06 code = 5691714670) LYMPH x10^3 (test code 3.05 10*3/uL 1.32-3.29 = 731-0) MONO x10^3 (test code 0.60 10*3/uL 0.33-0.92 = 742-7) EOS x10^3 (test code = 0.31 10*3/uL 0.03-0.39 711-2) BASO x10^3 (test code <0.03 0.01-0.07 = 704-7) Lab Interpretation Abnormal (test code = 69155-6) [facility] CenterRHO (D) IMMUNE [id number] 19:30:24 Test Item Value Reference Range Interpretation Comments RHIG CANDIDATE? (test Yes- see A Patien t is a code = 5055) comment candidate for RhIg- Patient i s Rh Negative and baby is Rh Positive.Perfor me d at [facility] Laboratory Services - [facility] Blood [address] [place] [address]Xspm Free: [phone] A No. [id number] Lab Interpretation Abnormal (test code = 67507-1) [facility] CenterHepatitis B Surface [id number] 08:03:52 Test Item Value Reference Range Interpretation Comments HBsAg Semi-Quantitative (test code = Negative Negative 5195-3) [facility] CenterADC OR PAKO ONLY - [id number] 07:00:47 Test Item Value Reference Range Interpretation Comments RPR (Qualitative) (test code = Nonreactive Nonreactive 11232-2) Lab Interpretation (test code = Normal 89000-3) [facility] CenterHIV 1/2 AG-AB WITH [id number] 02:18:53 Test Item Value Reference Range Interpretation Comments HIV Negative Negative Semi-quantitative (test code = 28463-9) [place] (test code = Non-reactive for HIV-1 [place]) antigen and HIV-1/HIV-2 antibodies. ?No laboratory evidence of HIV infection. ?Repeat in 2-4 weeks if acute HIV infection is suspected. [facility] CenterType and Screen - ONCE [id number] 02:07:55 Test Item Value Reference Range Interpretation Comments ABO & RH (test code O Negative Performe d at [facility] = 20) Laboratory Serv [facility] Blood Bank[address] [place] [address]Vdpi Free: [phone] A No. [id number] IAT (test code = Negative Performed a t [facility] 1185) Laboratory Serv [facility] Blood Bank[address] [place] [address]Iuxi Free: [phone] A No. [id number] [facility] CenterCOMP. METABOLIC PANEL ([id number])2021-09-04 01:39:05 Test Item Value Reference Range Interpretation Comments NA (test code = 135 mmol/L 135-145 4794705148) K (test code = 3.7 mmol/L 3.5-5.0 0009214188) CL (test code = 108 mmol/L 98-108 3200903373) CO2 TOTAL (test code = 20 mmol/L 23-31 L 5296702468) AGAP (test code = 2-16 4691007953) BUN (test code = 15 mg/dL 7-23 0604879452) GLUCOSE (test code = 118 mg/dL 70-110 H 0253554921) CREATININE (test code = 0.72 mg/dL 0.50-1.04 6627937257) TOTAL BILI (test code = 0.3 mg/dL 0.1-1.5 3756524527) CALCIUM (test code = 8.4 mg/dL 8.6-10.6 L 7597061262) T PROTEIN (test code = 6.5 g/dL 6.3-8.2 6394674993) ALBUMIN (test code = 3.4 g/dL 3.5-5.0 L 1759060627) ALK PHOS (test code = 171 U/L 34-122 H 2786597066) ALTv (test code = 9 U/L 5-35 1742-6) AST(SGOT) (test code = 22 U/L 13-40 8818300974) eGFR (test code = mL/min/1.73m2 4200305908) [place] (test code = [place]) Association of Glomerular Filtration Rate (GFR) and Staging of Kidney Disease* + --+ --+ ------+| GFR (mL/min/1.73 m2) ?| With Kidney Damage ?| ?Without Kidney Damage+ --------+ --------+ +| ?>90 ?| ?Stage one ?| ? Normal ?+ ---+ ---+ -------+| ?60-89 ?| ?Stage two ?| ? Decreased GFR ? + --+ --+ ------+| ?30-59 ?| ?Stage three ?| ? Stage three ? + --+ --+ ------+| ?15-29 ?| ?Stage four ? | ? Stage four ?+ ---+ ---+ -------+| ?<15 (or dialysis) ? ?| ?Stage five ? | ? Stage five ?+ ---+ ---+ -------+ *Each stage assumes the associated GFR level has been in effect for at least three months. ?Stages 1 to 5, with or without kidney disease, indicate chronic kidney disease. Notes: Determination of stages one and two (with eGFR >59mL/min/1.73 m2) requires estimation of kidney damage for at least three months as defined by structural or functional abnormalities of the kidney, manifested by either:Pathological abnormalities or Markers of kidney damage (including abnormalities in the composition of the blood or urine or abnormalities in imaging tests). Lab Interpretation Abnormal (test code = 66132-6) [facility] with [id number] 01:18:56 Test Item Value Reference Range Interpretation Comments WBC (test code = See_Comment [Automated 1967-2) message] The sy stem which generated this result transmitted reference range : 4.30 - 11.10 10*3/?L. The reference range was not used to interpret this result as normal/abnormal . RBC (test code = See_Comment [Automated 345-8) message] The sy stem which generated this result transmitted reference range : 3.93 - 5.25 10*6/?L. The reference range was not used to interpret this result as normal/abnormal . HGB (test code = 10.9 g/dL 11.6-15.0 L 718-7) HCT (test code = 34.5 % 35.7-45.2 L 4544-3) MCV (test code = 81.8 fL 80.6-95.5 787-2) MCH (test code = 25.8 pg 25.9-32.8 L 785-6) MCHC (test code = 31.6 g/dL 31.6-35.1 786-4) RDW-SD (test code = 61.9 fL 39.0-49.9 H 79569-6) RDW-CV (test code = 21.4 % 12.0-15.5 H 788-0) PLT (test code = See_Comment [Automated 777-3) message] The sy stem which generated this result transmitted reference range : 166 - 358 10*3/ ?L. The reference r remy was not used to interpret this result as normal/abnormal . MPV (test code = 10.7 fL 9.5-12.9 84074-7) NRBC/100 WBC (test See_Comment [Automat ed code = 0337222083) message] The system which generated this result transmitted reference range : 0.0 - 10.0 /100 WBCs. The refer ence range was not u sed to interpret th is result as normal/abnormal . NRBC x10^3 (test code <0.01 See_Comment [Auto mated = 8725859108) message] The s ystem which generated this result transmitted reference range : 10*3/?L. The reference range was not used to interpret this result as normal/abnormal . GRAN MAT (NEUT) % 68.1 % (test code = 770-8) IMM GRAN % (test code 0.40 % = 3314629008) LYMPH % (test code = 23.7 % 736-9) MONO % (test code = 6.4 % 5905-5) EOS % (test code = 1.2 % 713-8) BASO % (test code = 0.2 % 706-2) GRAN MAT x10^3(ANC) 6.56 10*3/uL 1.88-7.09 (test code = 4052875462) IMM GRAN x10^3 (test 0.04 10*3/uL 0.00-0.06 code = 4297340169) LYMPH x10^3 (test code 2.29 10*3/uL 1.32-3.29 = 731-0) MONO x10^3 (test code 0.62 10*3/uL 0.33-0.92 = 742-7) EOS x10^3 (test code = 0.12 10*3/uL 0.03-0.39 711-2) BASO x10^3 (test code <0.03 0.01-0.07 = 704-7) Lab Interpretation Abnormal (test code = 04202-2) [facility] URINALYSIS W/O SPECIFIC [id number] 22:29:00 Test Item Value Reference Range Interpretation Comments POCT PH U (test code = 3254) N/A 5-8 POCT U LEUK EST (test code = N/A Negative - Negative 3263) POCT U NIT (test code = 3262) N/A Negative - Negative POCT U PROT (test code = 3259) Positive Negative - Negative POCT U GLU (test code = 3256) Negative Negative - Negative POCT U KETONE (test code = 3258) N/A Negative - Negative POCT U BLD (test code = 3257) N/A Negative - Negative [facility] URINALYSIS W/O SPECIFIC [id number] 17:21:00 Test Item Value Reference Range Interpretation Comments POCT PH U (test code = 3254) n/a 5-8 POCT U LEUK EST (test code = n/a Negative - Negative 3263) POCT U NIT (test code = 3262) n/a Negative - Negative POCT U PROT (test code = 3259) Trace Negative - Negative POCT U GLU (test code = 3256) Negative Negative - Negative POCT U KETONE (test code = 3258) n/a Negative - Negative POCT U BLD (test code = 3257) n/a Negative - Negative [facility] URINALYSIS W/O SPECIFIC [id number] 17:04:00 Test Item Value Reference Range Interpretation Comments POCT PH U (test code = 3254) N/A 5-8 POCT U LEUK EST (test code = N/A Negative - Negative 3263) POCT U NIT (test code = 3262) N/A Negative - Negative POCT U PROT (test code = 3259) Negative Negative - Negative POCT U GLU (test code = 3256) Negative Negative - Negative POCT U KETONE (test code = 3258) N/A Negative - Negative POCT U BLD (test code = 3257) N/A Negative - [facility] [id number] 23:03:00 Test Item Value Reference Range Interpretation Comments POCT PH U (test code = 3254) n/a 5-8 POCT U LEUK EST (test code = 3263) n/a Negative - Negative POCT U NIT (test code = 3262) n/a Negative - Negative POCT U PROT (test code = 3259) neg Negative - Negative POCT U GLU (test code = 3256) neg Negative - Negative POCT U KETONE (test code = 3258) n/a Negative - Negative POCT U BLD (test code = 3257) n/a Negative - Negative Lab Interpretation (test code = Normal 76476-0) [facility], BLOOD [id number] 21:55:34 Test Item Value Reference Range Interpretation Comments ABO & RH (test code O NEGATIVE Performe d at [facility] = 20) Laboratory Serv [facility] Blood [facility]3 [place] [facility] s [id number] Free: [phone] A No. [id number] IAT (test code = Negative Performed a t [facility] 1185) Laboratory Serv [facility] Blood [facility]3 [facility] s [id number] Free: [phone] A No. [id number] [facility]CBC WITH [id number] 17:56:35 Test Item Value Reference Range Interpretation Comments WBC (test code = See_Comment [Automated 4180-2) message] The sy stem which generated this result transmitted reference range : 4.30 - 11.10 10*3/?L. The reference range was not used to interpret this result as normal/abnormal . RBC (test code = See_Comment L [Automated 131-9) message] The sy stem which generated this result transmitted reference range : 3.93 - 5.25 10*6/?L. The reference range was not used to interpret this result as normal/abnormal . HGB (test code = 8.7 g/dL 11.6-15.0 L 718-7) HCT (test code = 28.7 % 35.7-45.2 L 4544-3) MCV (test code = 78.6 fL 80.6-95.5 L 787-2) MCH (test code = 23.8 pg 25.9-32.8 L 785-6) MCHC (test code = 30.3 g/dL 31.6-35.1 L 786-4) RDW-SD (test code = 42.1 fL 39.0-49.9 19553-4) RDW-CV (test code = 14.7 % 12.0-15.5 788-0) PLT (test code = See_Comment [Automated 777-3) message] The sy stem which generated this result transmitted reference range : 166 - 358 10*3/ ?L. The reference r remy was not used to interpret this result as normal/abnormal . MPV (test code = 9.3 fL 9.5-12.9 L 14511-7) NRBC/100 WBC (test See_Comment [Automat ed code = [id number]) message] The system which generated this result transmitted reference range : 0.0 - 10.0 /100 WBCs. The refer ence range was not u sed to interpret th is result as normal/abnormal . NRBC x10^3 (test code <0.01 See_Comment [Auto mated = [id number]) message] The s ystem which generated this result transmitted reference range : 10*3/?L. The reference range was not used to interpret this result as normal/abnormal . GRAN MAT (NEUT) % 72.6 % (test code = 770-8) IMM GRAN % (test code 0.40 % = [id number]) LYMPH % (test code = 19.2 % 736-9) MONO % (test code = 5.7 % 5905-5) EOS % (test code = 1.7 % 713-8) BASO % (test code = 0.4 % 706-2) GRAN MAT x10^3(ANC) 6.79 10*3/uL 1.88-7.09 (test code = [id number]) IMM GRAN x10^3 (test 0.04 10*3/uL 0.00-0.06 code = 7112620744) LYMPH x10^3 (test code 1.80 10*3/uL 1.32-3.29 = 731-0) MONO x10^3 (test code 0.53 10*3/uL 0.33-0.92 = 742-7) EOS x10^3 (test code = 0.16 10*3/uL 0.03-0.39 711-2) BASO x10^3 (test code 0.04 10*3/uL 0.01-0.07 = 704-7) Lab Interpretation Abnormal (test code = 92860-2) [facility]"
--- NOTE | 2021-10-02 15:43 | RAD REPORT ---
EXAM DESCRIPTION: CT - CTFB CLINICAL HISTORY: left jaw pain/inability to open Pain and swelling COMPARISON: No comparisons TECHNIQUE: Axial 2 mm thick images of the face were obtained with sagittal and coronal reconstructio n images. All CT scans are performed using dose optimization technique as appropriate and may include automated exposure control or mA/KV adjustment according to patient size. FINDINGS: No acute facial bone fracture is seen.The mandible is intact. The globes and orbital contents are grossly unremarkable.The paranasal sinuses and mastoids are clear . IMPRESSION: Unremarkable study.
[2021-10-02] MEDS ORDERED: BACLOFEN 10 MG TAB PO ONE (17:00)
--- NOTE | 2021-10-02 17:00 | ER ---
Nurse's Notes [facility] Name: Rolanda Santiago Age: 26 yrs Sex: Female : 1995 Arrival Date: 10/02/2021 Time: 13:25 Bed 17 Private MD: Diagnosis: Temporomandibular joint disorder, unspecified-left Presentation: 10/02 13:26 Chief complaint: Patient states: "My jaw is locked on the left side, it started this jd3 morning. it locks up from time to time, but I generally can get it massaged back to working.". Coronavirus screen: At this time, the client does not indicate any symptoms associated with coronavirus-19. Ebola Screen: No symptoms or risks identified at this time. Initial Sepsis Screen: Does the patient meet any 2 criteria? No. Patient's initial sepsis screen is negative. Does the patient have a suspected source of infection? No. Patient's initial sepsis screen is negative. Risk Assessment: Do you want to hurt yourself or someone else? Patient reports no desire to harm self or others. Onset of symptoms was October 02, 2021. 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 Flu vaccine is not up to date. - Social history:: Smoking status: Reported history of juuling and/or vaping. Screenin:23 Abuse screen: Denies threats or abuse. Nutritional screening: No deficits noted. ap3 Tuberculosis screening: No symptoms or risk factors identified. Fall Risk None identified. Assessment: 15:23 Reassessment: Patient and/or family updated on plan of care and expected duration. Pain ap3 level reassessed. Patient is alert, oriented x 3, equal unlabored respirations, skin warm/dry/pink. General: Appears in no apparent distress. distressed, comfortable, Behavior is calm, cooperative, appropriate for age. Pain: Complains of pain in left jaw. Neuro: Level of Consciousness is awake, alert, obeys commands, Oriented to person, place, time, situation, Appropriate for age. Respiratory: Airway is patent Respiratory effort is even, unlabored, Respiratory pattern is regular, symmetrical. Vital Signs: 13:28 BP 133 / 85; Pulse 64; Resp 18 S; Temp 98.6(TE); Pulse Ox 99% on R/A; Weight 79.83 kg jd3 (R); Height 5 ft. 2 in. (157.48 cm) (R); Pain 5/10; 13:28 Body Mass Index 32.19 (79.83 kg, 157.48 cm) jd3 ED Course: 13:25 Patient arrived in ED. as 13:27 Triage completed. jd3 13:27 Chicho Merrill PA is PHCP. cp 13:27 Kirt Baez MD is Attending Physician. cp 13:29 Addis Palafox, ANDRES is Primary Nurse. ap3 13:29 Arm band placed on. jd3 15:23 Patient has correct armband on for positive identification. Bed in low position. Call ap3 light in reach. Side rails up X2. Pulse ox on. NIBP on. Door closed. Noise minimized. 15:33 CT Facial Bones W/O Con In Process Unspecified. EDMS 16:58 Yajaira Bojorquez MD is Referral Physician. cp 17:22 No provider procedures requiring assistance completed. IV discontinued, intact, ap3 bleeding controlled, No redness/swelling at site. Pressure dressing applied. Administered Medications: 14:20 Drug: Ketorolac 30 mg Route: IVP; Site: left antecubital; ap3 16:20 Follow up: Response: No adverse reaction ap3 14:20 Drug: NS 0.9% 500 ml Route: IV; Rate: calculated rate; Site: left antecubital; ap3 17:22 Follow up: IV Status: Completed infusion ap3 14:20 Drug: Diazepam 5 mg Route: IVP; Site: left antecubital; ap3 16:20 Follow up: Response: No adverse reaction ap3 17:21 Not Given (Patient Refused): Baclofen 10 mg PO once ap3 Outcome: 16:59 Discharge ordered by . cp 17:22 Discharged to home ambulatory. ap3 17:22 Condition: good 17:22 Discharge instructions given to patient, Instructed on discharge instructions, follow up and referral plans. medication usage, Demonstrated understanding of instructions, follow-up care, medications, Prescriptions given X 2. 17:38 Patient left the ED. ap3 Signatures: Dispatcher [employer] EDMelissa Lawton Corey, PA PA cp Davies, Jonathon, RN RN jd3 Addis Palafox RN RN ap3
--- NOTE | 2021-10-02 17:00 | EDPHYS ---
Physician Documentation [facility] Name: Rolanda Santiago Age: 26 yrs Sex: Female : 1995 Arrival Date: 10/02/2021 Time: 13:25 Bed 17 Private MD: ED Physician Kirt Baez HPI: 10/02 13:40 This 26 yrs old Female presents to ER via Ambulatory with complaints of Jaw cp Pain. 13:40 The patient presents with pain, inability to fully open mouth. Onset: The cp symptoms/episode began/occurred today. Duration: The symptoms are continuous. Associated signs and symptoms: The patient has no apparent associated signs or symptoms. 13:40 Patient denies trauma and/or previous injury to jaw. 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 Flu vaccine is not up to date. - Social history:: Smoking status: Reported history of juuling and/or vaping. ROS: 13:45 ENT: Positive for jaw pain and inability to fully open mouth, Negative for drainage cp from ear(s), ear pain, sore throat, difficulty swallowing, difficulty handling secretions. 13:45 Constitutional: Negative for body aches, chills, fever, poor PO intake. cp 13:45 Neck: Negative for pain with movement, pain at rest, stiffness. 13:45 Respiratory: Negative for cough, shortness of breath, wheezing. 13:45 Abdomen/GI: Negative for abdominal pain, nausea, vomiting, and diarrhea. 13:45 Skin: Negative for rash. 13:45 Neuro: Negative for altered mental status, headache, weakness. 13:45 All other systems are negative. Exam: 13:50 Constitutional: The patient appears in no acute distress, alert, awake, comfortable, cp non-toxic, well developed, well nourished. 13:50 Head/Face: Normocephalic, atraumatic. cp 13:50 Eyes: Periorbital structures: appear normal, Conjunctiva: normal, no exudate, no injection, Sclera: no appreciated abnormality, Lids and lashes: appear normal, bilaterally. 13:50 ENT: External ear(s): are unremarkable, Ear canal(s): are normal, clear, TM's: dullness, bilaterally, Nose: is normal, Mouth: Lips: moist, Oral mucosa: moist, Posterior pharynx: Airway: no evidence of obstruction, patent, Dental exam: normal, left TMJ tenderness. 13:50 Neck: ROM/movement: is normal, is supple, without pain, no range of motions limitations, Lymph nodes: no appreciated lymphadenopathy. 13:50 Chest/axilla: Inspection: normal. 13:50 Cardiovascular: Rate: normal. 13:50 Respiratory: the patient does not display signs of respiratory distress, Respirations: normal, no use of accessory muscles, no retractions. 13:50 Abdomen/GI: Inspection: abdomen appears normal. Vital Signs: 13:28 BP 133 / 85; Pulse 64; Resp 18 S; Temp 98.6(TE); Pulse Ox 99% on R/A; Weight 79.83 kg jd3 (R); Height 5 ft. 2 in. (157.48 cm) (R); Pain 5/10; 13:28 Body Mass Index 32.19 (79.83 kg, 157.48 cm) jd3 MDM: 13:30 Patient medically screened. cp 14:00 Differential diagnosis: TMJ dysfunction, jaw dislocation. cp 16:59 Data reviewed: vital signs, nurses notes, radiologic studies, CT scan, I have discussed the patient's presentation/case with the attending Emergency Department Physician; and as a result, I will discharge patient. 16:59 Counseling: I had a detailed discussion with the patient and/or guardian regarding: the cp historical points, exam findings, and any diagnostic results supporting the discharge/admit diagnosis, radiology results, the need for outpatient follow up, for definitive care, an ENT specialist, to return to the emergency department if symptoms worsen or persist or if there are any questions or concerns that arise at home. Response to treatment: the patient's symptoms have mildly improved after treatment, and as a result, I will discharge patient. 10/02 14:44 Order name: CT Facial Bones W/O Con; Complete Time: 15:58 cp 10/02 13:37 Order name: IV; Complete Time: 14:20 cp 10/02 16:00 Order name: PO challenge; Complete Time: 16:20 cp Administered Medications: 14:20 Drug: Ketorolac 30 mg Route: IVP; Site: left antecubital; ap3 16:20 Follow up: Response: No adverse reaction ap3 14:20 Drug: NS 0.9% 500 ml Route: IV; Rate: calculated rate; Site: left antecubital; ap3 17:22 Follow up: IV Status: Completed infusion ap3 14:20 Drug: Diazepam 5 mg Route: IVP; Site: left antecubital; ap3 16:20 Follow up: Response: No adverse reaction ap3 17:21 Not Given (Patient Refused): Baclofen 10 mg PO once ap3 Disposition: 17:49 Co-signature as Attending Physician, Kirt Baez MD I agree with the assessment and kdr plan of care. Disposition Summary: 10/02/21 16:59 Discharge Ordered Location: Home cp Problem: new cp Symptoms: are unchanged cp Condition: Stable cp Diagnosis - Temporomandibular joint disorder, unspecified - left cp Followup: cp - With: Yajaira Bojorquez MD - When: 1 - 2 days - Reason: Recheck today's complaints Discharge Instructions: - Discharge Summary Sheet cp - Temporomandibular Joint Syndrome cp Forms: - Medication Reconciliation Form cp - Thank You Letter cp - Antibiotic Education cp - Prescription Opioid Use cp Prescriptions: - Baclofen 10 mg Oral Tablet - take 1 tablet by ORAL route 3 times per day; 20 tablet; Refills: 0, Product cp Selection Permitted - Diclofenac Sodium 75 mg Oral Tablet Sustained Release - take 1 tablet by ORAL route 2 times per day; 30 tablet; Refills: 0, Product cp Selection Permitted Signatures: Dispatcher [employer] Kirt Quigley MD MD kdr Page, Corey, PA PA cp Davies, Jonathon, RN RN jAddis Burt RN RN ap3
[2021-10-03 02:13] VITALS: BP 133/85; TEMP 98.6; O2SAT 99
== END 2021-10-02 17:38 | disposition home or self-care (01) ==
LOC: ER 13:22
DX: M26.602 Left temporomandibular joint disorder, unspecified (principal)
CPT/HCPCS: 70486; 76377; 96361; 96374; 96375; 99284

== ENCOUNTER 2021-10-31 12:45 | Emergency (ER) | payer OTHER ==
--- OUTSIDE RECORDS SUMMARY | 2021-10-31 13:02 | XMS REPORT | Continuity of Care Document ---
:1995 Author Organization [facility] t Address [address] [place] [address] Care Team Providers Name Role Phone Pcp, Does Not Have A Primary Care Physician ADUM, L Attending Clinician Unavailable YUMIKO Attending Clinician Unavailable Mika CAMPOS Attending Clinician Unavailable Pob, Lab Main Attending Clinician Unavailable Miguel FARNSWORTH Attending Clinician Payers Payer Name Policy Type Policy Number Effective Date Expiration Date S [facility] [id number] 2018 00:00:00 Problems Condition Condition Condition Status Onset Resolution Last Treating Co mments Source Name Details Category Date Date Treatment Clinician Date Pre-operat Pre-operat Disease Active Overview : Univers lázaro lázaro 4-19 Formattin ity of evaluation evaluation 00:00: g of this [place] for tubal for tubal 00 note Medi jose cruz ligation ligation might be Bran ch different from the original. Added automatic ally from request for surgery [id number] Gestationa Gestationa Disease Active U nivers l l 3-08 ity of hypertens[place] hypertens[place], 00 Medical antepartum antepartum Br anch Obesity Obesity Disease Active Univers (BMI (BMI 2-04 ity of 30-39.9) 30-39.9) 00:00: [place] 00 Medical Branch Rubella Rubella Disease Active Univers non-immune non-immune 2-05 it y of status, status, 00:00: [place] antepartum antepartum 00 Me dical Branch Generalize Generalize Disease Active U nivers d anxiety d anxiety 6-11 ity of disorder disorder 00:00: [place] 00 [facility] Branch Asthma Asthma Disease Active Overview: [facility] Form[facility] ity of 00:00: g of this note Medical might be Branch different from the original. ICD10 Diagnosis Term Coding Support Specialist Utility Allergies, Adverse Reactions, Alerts Allergy Allergy Status Severity Reaction(s) Onset Inactive Treating Comm ents Source Name Type Date Date Clinician NO KNOWN Drug Active Univers ALLERGIE Class ity of S [facility] Social History Social Habit Start Date Stop Date Quantity Comments Source Exposure to 2021-10-18 2021-10-28 Not sure [facility] SARS-CoV-2 00:00:00 15:55:00 [facility] (event) Branch Alcohol intake 2021-10-28 2021-10-28 Ex-drinker [facility] 00:00:00 00:00:00 (finding) [facility] Tobacco use and 2014-06-06 2014-06-06 Never used Universit y of exposure 00:00:00 00:00:00 [facility] History of 2014-05-07 Cigarette Smoker Universi ty of tobacco use 00:00:00 [facility] Sex Ass[birth year] Universit y of 00:00:00 00:00:00 [facility] Smoking Status Start Date Stop Date Source Former smoker 2014-06-06 00:00:00 2014-06-06 00:00:00 Universi ty of [facility] Medications Ordered Filled Start Stop Current Ordering Indication Dosage Frequency Signature Comments Components Source Medication Medication Date Date Medication? Clinician (SIG) Name Name phentermine Yes 30mg Take 30 mg Univers 30 mg 5-02 by mouth ity of capsule 15:53: every [place] [address] morning. Medical Last dose Branch was Thursday10/26/21 phentermine Yes 30mg Take 30 mg Univers 30 mg 5-02 by mouth ity of capsule 15:53: every [place] 19 morning. Medical Last dose Branch was Thursday10/26/21 Yes [id number] Take by Univers vit 4-25 09 mouth. ity of calc,iron,f 16:37: [place] ol 23 Medical ( Branch VITAMIN ORAL) Yes [id number] Take by Univers vit 4-25 09 mouth. ity of calc,iron,f 16:37: [place] olic 23 Medical ( Branch VITAMIN ORAL) metroNIDAZO Yes [id number] 500mg Take 1 Univers LE 500 mg 4-14 tablet by ity o f tablet 00:00: mouth [place] 00 every 12 Medical (twelve) Branch hours. metroNIDAZO Yes [id number] 500mg Take 1 Univers LE 500 mg 4-14 tablet by ity o f tablet 00:00: mouth [place] 00 every 12 Medical (twelve) Branch hours. cyclobenzap Yes TAKE ONE Un bridget rine 10 mg 4-12 (1) ity of tablet 00:00: TABLET(S) [place] 00 BY MOUTH Medical 30 MINUTES Branch PRIOR TO BEDTIME. cyclobenzap Yes TAKE ONE Un bridget rine 10 mg 4-12 (1) ity of tablet 00:00: TABLET(S) [place] 00 BY MOUTH Medical 30 MINUTES Branch PRIOR TO BEDTIME. Yes 1{packe Take 1 Univ ers vit 3-17 t} Packet by ity of 33-iron-fol 00:00: mouth [place] ic-dha 00 daily. Medical (SELECT-OB Branch + DHA) 29 mg iron-1 mg -250 mg combo pack ibuprofen Yes [id number] 800mg Take 1 U nivers 800 mg 3-17 tablet by ity of tablet 00:00: mouth [place] 00 every 8 Medical (eight) Branch hours as needed for Pain (scale 4-6). Yes 1{packe Take 1 Univ ers vit 3-17 t} Packet by ity of 33-iron-fol 00:00: mouth [place] ic-dha 00 daily. Medical (SELECT-OB Branch + DHA) 29 mg iron-1 mg -250 mg combo pack ibuprofen Yes [id number] 800mg Take 1 U nivers 800 mg 3-17 tablet by ity of tablet 00:00: mouth [place] 00 every 8 Medical (eight) Branch hours as needed for Pain (scale 4-6). ferrous Yes [id number] 325mg Take 1 Un bridget sulfate 325 9-26 tablet by ity of mg (65 mg 00:00: mouth 3 [place] iron) 00 (three) Medical tablet times Branch daily with meals. ascorbic Yes [id number] 500mg Take 1 U nivers acid, 9-26 tablet by ity of vitamin C, 00:00: mouth [place] 500 mg 00 (two) Medical tablet times Branch daily. ferrous Yes [id number] 325mg Take 1 Un bridget sulfate 325 9-26 tablet by ity of mg (65 mg 00:00: mouth 3 [place] iron) 00 (three) Medical tablet times Branch daily with meals. ascorbic Yes [id number] 500mg Take 1 U nivers acid, 9-26 tablet by ity of vitamin C, 00:00: [place] 500 mg 00 (two) Medical tablet times Branch daily. Immunizations Ordered Filled Immunization Date Status Comments [facility] e Immunization Name Name Rho (d) Immune 2021-09-05 Completed University of Globulin 00:00:00 [facility] Rho (d) Immune 2021-09-05 Completed University of Globulin 00:00:00 [facility] Rho (d) Immune 2021-07-03 Completed University of Globulin 00:00:00 [facility] Rho (d) Immune 2021-07-03 Completed University of Globulin 00:00:00 [facility] Rho (d) Immune 2020-06-02 Completed University of Globulin 00:00:00 [facility] Rho (d) Immune 2020-06-02 Completed University of Globulin 00:00:00 [facility] Rho (d) Immune 2020-03-27 Completed University of Globulin 00:00:00 [facility] Rho (d) Immune 2020-03-27 Completed University of Globulin 00:00:00 [facility] TDAP 2020-03-22 Completed University of 00:00:00 [facility] TDAP 2020-03-22 Completed University of 00:00:00 [facility] Rho (d) Immune 2019-11-29 Completed University of Globulin 00:00:00 [facility] Rho (d) Immune 2019-11-29 Completed University of Globulin 00:00:00 [facility] Rho (d) Immune 2018-08-03 Completed University of Globulin 00:00:00 [facility] Rho (d) Immune 2018-08-03 Completed University of Globulin 00:00:00 [facility] TDAP 2012-07-23 Completed University of 00:00:00 [facility] TDAP 2012-07-23 Completed University of 00:00:00 [facility] Rubella 2011-02-03 Completed University of 00:00:00 [facility] Rubella 2011-02-03 Completed [facility] 00:00:00 [facility] Procedures This patient has no known procedures. Encounters Start End Encounter Admission Attending Care Care Encounter Source Date/Time Date/Time Type Type Clinicians Facility Department ID 2021-11-15 2021-11-15 [facility] [id number] Univers 13:15:00 13:15:[id number]-10[facility] 2021-10-31 [facility] [id number] Univers 15:00:00 15:00:00 KULDIP [id number] [facility] 2021-10-31 2021-10-31 [facility] [id number] Univers 15:00:00 15:00:00 KULDIP [facility] 2021-10-30 2021-10-30 Patient Mika [facility] [id number] Univers 00:00:00 00:00:00 Secure Msg Chichi GLADYS [id number] ity of PEDIATRIC [id number] [place] [facility] [id number] [place] [id number] Branch 2021-10-29 2021-10-29 

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
[2021-10-31 14:14] VITALS: BP 128/83; O2SAT 99
== END 2021-10-31 13:55 | disposition home or self-care (01) ==
LOC: ER 12:45
DX: R51.9 Headache, unspecified (principal); V59.40XA Driver of pick-up truck or van injured in collision with unspecified motor vehicles in traffic accident, initial encounter
CPT/HCPCS: 99281

== ENCOUNTER 2021-12-17 17:49 | Emergency (ER) | payer OTHER ==
--- OUTSIDE RECORDS SUMMARY | 2021-12-17 17:51 | XMS REPORT | Continuity of Care Document ---
:1995 Author Organization [facility] t Address [address] [place] [address] Care Team Providers Name Role Phone PCP, DOES NOT HAVE A Primary Care Physician Unavailable Glen ISABEL Attending Clinician Unavailable YUMIKO Attending Clinician Unavailable Mika CAMPOS Attending Clinician Unavailable Pob, Lab Main Attending Clinician Unavailable Miguel FARNSWORTH Attending Clinician Payers Payer Name Policy Type Policy Number Effective Date Expiration Date S [facility] [id number] 2018 00:00:00 Problems Condition Condition Condition Status Onset Resolution Last Treating Co mments Source Name Details Category Date Date Treatment Clinician Date Pre-operat Pre-operat Disease Active Overview : [facility] lázaro lázaro 4-19 Formattin ity of evaluation evaluation 00:00: g of this [place] for tubal for tubal 00 note Medi jose rcuz ligation ligation might be Bran ch different from the original. Added automatic ally from request for surgery [id number] Gestationa Gestationa Disease Active U nivers l [...] anxiety 6-11 ity of disorder disorder 00:00: [place] 00 [facility] Asthma Asthma Disease Active Overview: [facility] 12-07 Formattin ity of 00:00: g of this note Medical might be Branch different from the original. 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 Allergies, Adverse Reactions, Alerts Allergy Allergy Status Severity Reaction(s) Onset Inactive Treating Comm ents Source Name Type Date Date Clinician NO KNOWN Drug Active Univers ALLERGIE Class ity of S [facility] Social History Social Habit Start Date Stop Date Quantity Comments Source Exposure to 2021-10-18 2021-10-28 Not sure [facility] SARS-CoV-2 00:00:00 15:55:00 [facility] (event) Branch Alcohol intake 2021-10-28 2021-10-28 Ex-drinker [facility] 00:00:00 00:00:00 (finding) [facility] Tobacco use and 2014-06-06 2014-06-06 Never used Universit y of exposure 00:00:00 00:00:00 [facility] History of 2014-05-07 Cigarette Smoker Universi ty of tobacco use 00:00:00 [facility] Sex Ass[birth year] At [birth year] Universit y of 00:00:00 00:00:00 [facility] Smoking Status Start Date Stop Date Source Former smoker 2014-06-06 00:00:00 2014-06-06 00:00:00 [facility] Medications Ordered Filled Start Stop Current Ordering Indication Dosage Frequency Signature Comments Components Source Medication Medication Date Date Medication? Clinician (SIG) Name Name phentermine Yes 30mg Take 30 mg Univers 30 mg 5-02 by mouth ity of capsule 15:53: every [place] [address] morning. Medical Last dose Branch was Thursday10/26/21 phentermine Yes 30mg Take 30 mg Univers 30 mg 5-02 by mouth ity of capsule 15:53: every [place] 19 morning. Medical Last dose Branch was Thursday10/26/21 Yes [id number] Take by Univers vit 4-25 09 mouth. ity of calc,iron,f 16:37: [place] [address] Medical ( Branch VITAMIN ORAL) Yes [id number] Take by Univers vit 4-25 09 mouth. ity of calc,iron,f 16:37: [place] [address] Medical ( Branch VITAMIN ORAL) metroNIDAZO Yes [id number] 500mg Take 1 Univers LE 500 mg 4-14 tablet by ity o f tablet 00:00: mouth [place] 00 every 12 Medical (twelve) Branch hours. metroNIDAZO Yes [id number] 500mg Take 1 Univers LE 500 mg [...] mg -250 mg combo pack ibuprofen Yes [id number] 800mg Take 1 U nivers 800 mg [...] mg -250 mg combo pack ibuprofen Yes [id number] 800mg Take 1 U nivers 800 mg 3-17 tablet by ity of tablet 00:00: mouth [place] 00 every 8 Medical (eight) Branch hours as needed for Pain (scale 4-6). ferrous Yes [id number] 325mg Take 1 Un bridget sulfate 325 9-26 tablet by ity of mg (65 mg 00:00: mouth 3 [place] iron) 00 (three) Medical tablet times Branch daily with meals. ascorbic Yes [id number] 500mg Take 1 U nivers acid, 9-26 tablet by ity of vitamin C, 00:00: [place] 500 mg 00 (two) Medical tablet times Branch daily. ferrous Yes [id number] 325mg Take 1 Un bridget sulfate 325 9-26 tablet by ity of mg (65 mg 00:00: mouth 3 [place] iron) 00 (three) Medical tablet times Branch daily with meals. ascorbic Yes [id number] 500mg Take 1 U nivers acid, 9-26 tablet by ity of vitamin C, 00:00: [place] 500 mg 00 (two) Medical tablet times Branch daily. Immunizations Ordered Filled Immunization Date Status Comments [facility] e Immunization Name Name Rho (d) Immune 2021-09-05 Completed University of Globulin 00:00:00 [facility] Rho (d) Immune 2021-09-05 Completed University of Globulin 00:00:00 [facility] Rho (d) Immune 2021-07-03 Completed University of Globulin 00:00:00 [facility] Rho (d) Immune 2021-07-03 Completed University of Globulin 00:00:00 [facility] Rho (d) Immune 2020-06-02 Completed University of Globulin 00:00:00 [facility] Rho (d) Immune 2020-06-02 Completed University of Globulin 00:00:00 [facility] Rho (d) Immune 2020-03-27 Completed University of Globulin 00:00:00 [facility] Rho (d) Immune 2020-03-27 Completed University of Globulin 00:00:00 [facility] TDAP 2020-03-22 Completed University of 00:00:00 [facility] TDAP 2020-03-22 Completed University of 00:00:00 [facility] Rho (d) Immune 2019-11-29 Completed University of Globulin 00:00:00 [facility] Rho (d) Immune 2019-11-29 Completed University of Globulin 00:00:00 [facility] Rho (d) Immune 2018-08-03 Completed University of Globulin 00:00:00 [facility] Rho (d) Immune 2018-08-03 Completed University of Globulin 00:00:00 [facility] TDAP 2012-07-23 Completed University of 00:00:00 [facility] TDAP 2012-07-23 Completed University of 00:00:00 [facility] Rubella 2011-02-03 Completed University of 00:00:00 [facility] Rubella 2011-02-03 Completed University 00:00:00 [facility] Procedures This patient has no known procedures. Encounters Start End Encounter Admission Attending Care Care Encounter Source Date/Time Date/Time Type Type Clinicians Facility Department ID 2021-11-15 2021-11-15 Outpatient Lillian CHALO [facility] [id number] Univers 13:15:00 13:15:[id number] [facility] 2021-10-31 2021-10-31 Outpatient Lillian CALDERON [facility] [id number] Univers 15:00:00 15:00:[id number] [facility] 2021-10-31 2021-10-31 [facility] [id number] Univers 15:00:00 15:00:[address] [facility] 2021-10-30 2021-10-30 Patient Mika [facility] [id number] Univers 00:00:00 00:00:00 Secure Msg Chichi GRAHAM [id number] ity of P[id number] [facility] [id number] [facility] [address] Branch 2021-10-29 2021-10-29 Program Schedule Clerk Elliot Saldivar Lab Main [facility] [id number] Univers 14:15:00 14:30:00 Visit Bhupinder Rivera [id number] ity of [place] [id number] Albert fernández PROFESSIO [phone] [place] [address] Results This patient has no known results.
[2021-12-17] MEDS ORDERED: ACETAMINOPHEN 325 MG TABLET ONE (18:42)
[2021-12-17 18:47] LABS: Urine Blood 2+ (Negative); Urine Glucose Negative (Negative); Urine Protein Negative (Negative); Urine Specific Gravity 1.025 (1.005-1.030); Urine pH 7.5 (5.0-7.0)
[2021-12-17] MEDS ORDERED: CLINDAMYCIN 900MG/D5W 900 MG/50 ML IVPB IV ONE (18:57)
[2021-12-17] MEDS ORDERED: IBUPROFEN 200 MG TAB PO ONE (18:57)
[2021-12-17] MEDS ORDERED: dexAMETHasone 10 MG/ML VIAL ONE (18:57)
[2021-12-17 19:16] LABS: Absolute Lymphocytes (CBC) 1.1 K/uL (0.7-4.9); Hematocrit 34.5 % (36.0-45.0); Lymphocytes % 7.2 % (15.3-44.8); MPV 7.1 fL (7.6-11.3); RBC Red Blood Cell Count 4.31 M/uL (3.86-4.86)
[2021-12-17 19:31] LABS: Potassium 3.7 mmol/L (3.5-5.1)
[2021-12-17] MEDS ORDERED: CEFTRIAXONE 2000 MG/VIAL ONE (19:59)
--- NOTE | 2021-12-17 20:17 | RAD REPORT ---
EXAM DESCRIPTION: CT - Soft Tissue Neck W/Contr CLINICAL HISTORY: Epiglottitis or tonsillitis suspected COMPARISON: No comparisons TECHNIQUE All CT scans are performed using dose optimization technique as appropriate and may includ e automated exposure control or mA/KV adjustment according to patient size. FINDINGS: Hypertrophy of Waldeyer's ring without discrete fluid collection to suggest abscess. In pa rticular, the palatine tonsils are particularly enlarged and touching near the midline. Fossa Rosenm ller are normal. Parapharyngeal fat triangles are symmetric. Tongue base structures are normal. Epiglottis and aryepiglottic folds are normal. Piriform sinuses are well aerated. The vocal cords are normal in appearance. Salivary glands are normal in appearance. Upper lung pedro are clear. Included intracranial contents are unremarkable. IMPRESSION: No acute soft tissue abnormality within the neck. Specifically, no abscess identified. T he epiglottis is normal in thickness. No prevertebral edema. Widely patent airway.
--- NOTE | 2021-12-17 20:34 | EDPHYS ---
Physician Documentation [facility] Name: Rolanda Santiago Age: 26 yrs Sex: Female : 1995 Arrival Date: 12/17/2021 Time: 17:51 Bed 23 Private MD: ED Physician Chicho Gilmore HPI: 12/17 18:42 This 26 yrs old Female presents to ER via Ambulatory with complaints of nohelia Weakness, Sore Throat. 18:42 The patient presents with sore throat. The patient describes throat pain as constant. nohelia Onset: The symptoms/episode began/occurred 1 day(s) ago. Severity of symptoms: At their worst the symptoms were mild, moderate, in the emergency department the symptoms are unchanged. Modifying factors: The symptoms are alleviated by nothing, the symptoms are aggravated by swallowing. Associated signs and symptoms: Pertinent positives: fever, Sore throat. The patient has not experienced similar symptoms in the past. 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 - Social history:: Smoking status: Patient denies any tobacco usage or history of. ROS: 18:43 Constitutional: Negative for fever, chills, and weight loss, Eyes: Negative for injury, nohelia pain, redness, and discharge, Neck: Negative for injury, pain, and swelling, Cardiovascular: Negative for chest pain, palpitations, and edema, Respiratory: Negative for shortness of breath, cough, wheezing, and pleuritic chest pain, Abdomen/GI: Negative for abdominal pain, nausea, vomiting, diarrhea, and constipation, Back: Negative for injury and pain, : Negative for injury, bleeding, discharge, and swelling, MS/Extremity: Negative for injury and deformity, Skin: Negative for injury, rash, and discoloration, Neuro: Negative for headache, weakness, numbness, tingling, and seizure, Psych: Negative for depression, anxiety, suicide ideation, homicidal ideation, and hallucinations, Allergy/Immunology: Negative for hives, rash, and allergies, Endocrine: Negative for neck swelling, polydipsia, polyuria, polyphagia, and marked weight changes, Hematologic/Lymphatic: Negative for swollen nodes, abnormal bleeding, and unusual bruising. 18:43 ENT: Positive for rhinorrhea, sore throat. Exam: 18:43 Constitutional: This is a well developed, well nourished patient who is awake, alert, nohelia and in no acute distress. Head/Face: Normocephalic, atraumatic. Eyes: Pupils equal round and reactive to light, extra-ocular motions intact. Lids and lashes normal. Conjunctiva and sclera are non-icteric and not injected. Cornea within normal limits. Periorbital areas with no swelling, redness, or edema. Neck: Trachea midline, no thyromegaly or masses palpated, and no cervical lymphadenopathy. Supple, full range of motion without nuchal rigidity, or vertebral point tenderness. No Meningismus. Chest/axilla: Normal chest wall appearance and motion. Nontender with no deformity. No lesions are appreciated. Cardiovascular: Regular rate and rhythm with a normal S1 and S2. No gallops, murmurs, or rubs. Normal PMI, no JVD. No pulse deficits. Respiratory: Lungs have equal breath sounds bilaterally, clear to auscultation and percussion. No rales, rhonchi or wheezes noted. No increased work of breathing, no retractions or nasal flaring. Abdomen/GI: Soft, non-tender, with normal bowel sounds. No distension or tympany. No guarding or rebound. No evidence of tenderness throughout. Back: No spinal tenderness. No costovertebral tenderness. Full range of motion. Skin: Warm, dry with normal turgor. Normal color with no rashes, no lesions, and no evidence of cellulitis. MS/ Extremity: Pulses equal, no cyanosis. Neurovascular intact. Full, normal range of motion. Neuro: Awake and alert, GCS 15, oriented to person, place, time, and situation. Cranial nerves II-XII grossly intact. Motor strength 5/5 in all extremities. Sensory grossly intact. Cerebellar exam normal. Normal gait. Psych: Awake, alert, with orientation to person, place and time. Behavior, mood, and affect are within normal limits. 18:43 ENT: Posterior pharynx: Tonsils: enlarged on the left, with erythema, Uvula: midline, non-edematous, no erythema, swelling, is not appreciated, erythema, is not appreciated, exudate, is not appreciated, peritonsillar mass, is noted on left. Vital Signs: 18:21 BP 136 / 90; Pulse 98; Resp 16; Temp 99.4(O); Pulse Ox 100% ; Weight 79.7 kg; Height 5 vg1 ft. 3 in. (160.02 cm); Pain 10/10; 19:07 BP 118 / 86; Pulse 66; Resp 18; Temp 98.2; Pulse Ox 100% on R/A; bh1 20:14 BP 116 / 68; Pulse 82; Resp 18; Pulse Ox 99% on R/A; bh1 20:47 BP 103 / 61; Pulse 82; Resp 18; Temp 98.3(O); Pulse Ox 99% on R/A; bh1 18:21 Body Mass Index 31.13 (79.70 kg, 160.02 cm) vg1 MDM: 17:52 Patient medically screened. [facility] 12/17 18:15 Order name: SARS-COV-2 RT PCR (Document "Date of Onset" if Symptomatic); Complete Time: [facility] :12/17 20:22 Interpretation: Reviewed. 12/17 18:15 Order name: Strep; Complete Time: 19:26 [facility] 12/17 19:44 Interpretation: Reviewed. 12/17 18:15 Order name: Flu; Complete Time: 19:26 [facility] 12/17 18:42 Order name: CBC with Diff; Complete Time: 19:26 [facility] 12/17 18:42 Order name: Chem 7; Complete Time: 19:44 [facility] 12/17 19:44 Interpretation: Reviewed. 12/17 18:47 Order name: Urine Dipstick-Ancillary; Complete Time: 19:26 EDMS 12/17 18:15 Order name: Urine Dipstick-Ancillary (obtain specimen); Complete Time: 18:47 [facility] 12/17 18:42 Order name: CT Soft Tissue Neck W/contr; Complete Time: 20:21 [facility] 12/17 20:23 Interpretation: Report reviewed. 12/17 18:51 Order name: Urine --Ancillary (enter results) bd 12/17 18:15 Order name: Urine Test (obtain specimen); Complete Time: 18:47 [facility] 12/17 18:29 Order name: PO challenge; Complete Time: 18:47 nohelia Administered Medications: 18:47 Drug: Tylenol 650 mg Route: PO; [facility] 18:47 Follow up: Response: No adverse reaction [facility] 19:05 Follow up: Response: No adverse reaction [facility] 19:04 Drug: Decadron - Dexamethasone 10 mg Route: IVP; Site: left antecubital; [facility] 19:04 Follow up: Response: No adverse reaction [facility] 19:04 Drug: Motrin (ibuprofen) 600 mg Route: PO; [facility] 19:04 Follow up: Response: No adverse reaction [facility] 19:05 Drug: Clindamycin 900 mg Route: IVPB; Infused Over: 30 mins; Site: left antecubital; [facility] 20:48 Follow up: IV Status: Completed infusion; IV Intake: 50ml [facility] 19:57 Drug: Rocephin (cefTRIAXone) 2 grams Route: IV; Rate: per protocol; Site: left [facility] antecubital; 19:58 Follow up: IV Status: Completed infusion; IV Intake: 10ml 1 20:48 Follow up: IV Status: Completed infusion; IV Intake: 10ml [facility] Disposition Summary: 12/17/21 20:33 Discharge Ordered Location: Home cp Problem: new cp Symptoms: have improved cp Condition: Stable cp Diagnosis - Fever, unspecified cp - Other malaise and fatigue cp - Acute streptococcal tonsillitis, unspecified cp - Elevated white blood cell count cp Followup: nohelia - With: Private Physician - When: 2 - 3 days - Reason: Recheck today's complaints, Continuance of care, Re-evaluation by your physician Followup: nohelia - With: - When: 1 - 2 days - Reason: Recheck today's complaints, Re-evaluation by your physician Followup: cp - With: Yajaira Bojorquez MD - When: 2 - 3 days - Reason: Recheck today's complaints Discharge Instructions: - Discharge Summary Sheet nohelia - Fever, Adult nohelia - Tonsillitis nohelia - Upper Respiratory Infection, Adult nohelia - Tonsillitis, [id number] nohelia - Tonsillectomy, Adult, Care After, [id number] nohelia - Fever, Adult, Fuze-os-Vumh nohelia Forms: - Medication Reconciliation Form cp - Thank You Letter cp - Antibiotic Education cp - Prescription Opioid Use cp Prescriptions: - Clindamycin HCl 300 mg Oral Capsule - take 1 capsule by ORAL route every 6 hours for 7 days; 28 capsule; Refills: 0, nohelia Product Selection Permitted - dexamethasone 2 mg Oral tablet - take 1 tablet by ORAL route 2 times per day; 6 tablet; Refills: 0, Product nohelia Selection Permitted - Lidocaine Viscous - take 5 milliliter by ORAL route every 4-6 hours As needed; 1 bottle; Refills: cp 0, Product Selection Permitted Signatures: Dispatcher [employer] Chicho bAbasi MD MD cha Page, Corey, PA PA cp Garcia, Victoria RN RN vg1 Lelo Garrido RN RN bh1
--- NOTE | 2021-12-17 20:34 | ER ---
Nurse's Notes [facility] Name: Rolanda Santiago Age: 26 yrs Sex: Female : 1995 Arrival Date: 12/17/2021 Time: 17:51 Bed 23 Private MD: Diagnosis: Fever, unspecified;Other malaise and fatigue;Acute streptococcal tonsillitis, unspecified;Elevated white blood cell count Presentation: 12/17 18:21 Chief complaint: Patient states: body aches, sore throat and feeling tired since vg1 yesterday; denies NVD. Coronavirus screen: Vaccine status: Patient reports being unvaccinated. Client denies travel out of the [place] in the last 14 days. Ebola Screen: Patient denies exposure to infectious person. Patient denies travel to an Ebola-affected area in the 21 days before illness onset. Initial Sepsis Screen: Does the patient meet any 2 criteria? No. Patient's initial sepsis screen is negative. Does the patient have a suspected source of infection? No. Patient's initial sepsis screen is negative. Risk Assessment: Do you want to hurt yourself or someone else? Patient reports no desire to harm self or others. Onset of symptoms was December 16, 2021. 18:21 Method Of Arrival: Ambulatory [facility] 18:21 Acuity: LAURA 3 vg1 Triage Assessment: 18:23 General: Appears uncomfortable, Behavior is calm, cooperative. Pain: Complains of pain vg1 in generalize body Pain currently is 10 out of 10 on a pain scale. 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 - Social history:: Smoking status: Patient denies any tobacco usage or history of. Screenin:05 Abuse screen: Denies threats or abuse. Nutritional screening: No deficits noted. [facility] Tuberculosis screening: No symptoms or risk factors identified. Fall Risk None identified. Assessment: 19:05 Reassessment: Patient appears in no apparent distress at this time. No changes from [facility] previously documented assessment. General: Appears. Cardiovascular: No deficits noted. Respiratory: No deficits noted. GI: No deficits noted. Vital Signs: 18:21 BP 136 / 90; Pulse 98; Resp 16; Temp 99.4(O); Pulse Ox 100% ; Weight 79.7 kg; Height 5 1 ft. 3 in. (160.02 cm); Pain 10/10; 19:07 BP 118 / 86; Pulse 66; Resp 18; Temp 98.2; Pulse Ox 100% on R/A; bh1 20:14 BP 116 / 68; Pulse 82; Resp 18; Pulse Ox 99% on R/A; bh1 20:47 BP 103 / 61; Pulse 82; Resp 18; Temp 98.3(O); Pulse Ox 99% on R/A; bh1 18:21 Body Mass Index 31.13 (79.70 kg, 160.02 cm) [facility] ED Course: 17:51 Patient arrived in ED. rg4 17:52 Chicho Gilmore MD is Attending Physician. [facility] 18:23 Triage completed. [facility] 18:23 Arm band placed on. [facility] 18:33 Lelo Garrido, RN is Primary Nurse. [facility] 18:48 Flu Sent. 1 18:48 Strep Sent. 1 18:48 SARS-COV-2 RT PCR (Document "Date of Onset" if Symptomatic) Sent. [facility] 19:02 [facility] Merrill [facility] 19:05 Patient has correct armband on for positive identification. Pulse ox on. NIBP on. [facility] 19:05 No provider procedures requiring assistance completed. Inserted saline lock: 20 gauge [facility] in left antecubital area, using aseptic technique. Blood collected. 19:50 Urine --Ancillary (enter results) Sent. 1 20:[address] 1 20:07 CT Soft Tissue Neck W/contr In Process Unspecified. EDMS 20:13 Patient taken to an exam room. [facility] 20:33 Carmen Steve MD is Referral Physician. cp 20:33 Referral Physician role handed off by Carmen Steve MD 20:33 Yajaira Bojorquez MD is Referral Physician. 20:47 IV discontinued, intact, bleeding controlled. [facility] Administered Medications: 18:47 Drug: Tylenol 650 mg Route: PO; [facility] 18:47 Follow up: Response: No adverse reaction [facility] 19:05 Follow up: Response: No adverse reaction [facility] 19:04 Drug: Decadron - Dexamethasone 10 mg Route: IVP; Site: left antecubital; 1 19:04 Follow up: Response: No adverse reaction [facility] 19:04 Drug: Motrin (ibuprofen) 600 mg Route: PO; bh1 19:04 Follow up: Response: No adverse reaction [facility] 19:05 Drug: Clindamycin 900 mg Route: IVPB; Infused Over: 30 mins; Site: left antecubital; 1 20:48 Follow up: IV Status: Completed infusion; IV Intake: 50ml [facility] 19:57 Drug: Rocephin (cefTRIAXone) 2 grams Route: IV; Rate: per protocol; Site: left [facility] antecubital; 19:58 Follow up: IV Status: Completed infusion; IV Intake: 10ml bh1 20:48 Follow up: IV Status: Completed infusion; IV Intake: 10ml [facility] Medication: 19:05 VIS not applicable for this client. [facility] Intake: 19:58 IV: 10ml; Total: 10ml. 1 20:48 IV: 10ml; Total: 20ml. bh1 20:48 IV: 50ml; Total: 70ml. [facility] Outcome: 20:33 Discharge ordered by . randy 20:47 Discharged to home ambulatory. [facility] 20:47 Condition: good 20:47 Discharge instructions given to patient, Instructed on discharge instructions, follow up and referral plans. medication usage, Demonstrated understanding of instructions, follow-up care, medications, Prescriptions given X 3. 20:49 Patient left the ED. [facility] Signatures: Dispatcher [employer] EDME Chicho Gilmore MD MD cha Page, Corey, PA PA cp Garcia, Rubi rg4 Ellen Griffiths, RN RN 1 Lelo Garrido RN RN 1
[2021-12-17 21:22] VITALS: O2SAT 99
[2021-12-17 21:23] VITALS: BP 103/61; TEMP 98.3
[2021-12-17 21:51] LABS: Urine Specific Gravity/Preg 1.025 (1.005-1.030)
== END 2021-12-17 20:49 | disposition home or self-care (01) ==
LOC: ER 17:49
DX: J03.00 Acute streptococcal tonsillitis, unspecified (principal); D72.829 Elevated white blood cell count, unspecified; R53.81 Other malaise; R53.83 Other fatigue; Z20.822 Contact with and (suspected) exposure to COVID-19
CPT/HCPCS: 85025; 80048; 36415; 81025; 87081; 81003; 87804 ×2; 70491; U0003; Q9967; J1100; J0696

== ENCOUNTER 2022-09-02 00:55 | Emergency (ER) | payer OTHER ==
--- OUTSIDE RECORDS SUMMARY | 2022-09-02 00:59 | XMS REPORT | Continuity of Care Document ---
:1995 Author Organization [facility] t Address [address] [place] [address] [address] [place] [address] Care Team Providers Name Role Phone Pcp, Patient Does Not Have A Primary Care Physician [id number] JESSICA LITTLEJOHN Attending Clinician Unavailable Tamiko Person MA Attending Clinician Unavailable SHANTA CALDERON Attending Clinician Unavailable Chichi Brennan RN Attending Clinician Unavailable Pob, [facility] Lab Main Attending Clinician Unavailable Bhupinder Rivera MD Attending Clinician Only, Adc Test Attending Clinician Unavailable Jessica Littlejohn MD Attending Clinician Doctor Unassigned, [place] Attending Clinician Unavailable Shanta Calderon PA-C Attending Clinician MARTÍN PERALTA Attending Clinician Unavailable Martín Peralta MD Attending Clinician Daquan Miller MD Attending Clinician Nurse, [facility] Attending Clinician Unavailable Lenard Gray MD Attending Clinician 2, Ad[facility] Lab Attending Clinician Unavailable Only, Ang Db Test Attending Clinician Unavailable Unknown, Attending Attending Clinician Unavailable ROLY GABRIEL Attending Clinician Unavailable Ultrasound, Ad[facility] Mfm Attending Clinician Unavailable DAQUAN MILLER Attending Clinician Unavailable DOMITILA NAPIER Attending Clinician Unavailable DOMITILA NAPIER Attending Clinician Unavailable DAWIT RIDDLE Attending Clinician Unavailable Ultrasound, Ang-Mfm Attending Clinician Unavailable Domitila Napier MD Attending Clinician Provider, [facility] Attending Clinician Unavailable Margy Conrad Attending Clinician MARGY STRINGER Attending Clinician Unavailable JORDAN WOOTEN Attending Clinician Unavailable JESSICA LITTLEJOHN Admitting Clinician Unavailable DAQUAN MILLER Admitting Clinician Unavailable LENARD GRAY Admitting Clinician Unavailable MARTÍN PERALTA Admitting Clinician Unavailable Lenard Gray MD Admitting Clinician Payers Payer Name Policy Type Policy Number Effective Date Expiration Date Xin back [facility] [id number] 2018 00:00:00 Problems Condition Condition Condition Status [...] Added automatic ally from request for surgery [id number] Gestationa Gestationa Disease Active U evetteers l l 3-08 ity of hypertens[place] 00 Medical antepartum antepartum Br anch Obesity Obesity Disease Active Univers (BMI (BMI 2-04 ity of 30-39.9) 30-39.9) 00:00: [place] [address] Medical Branch Rubella Rubella Disease Active Univers non-immune non-immune 2-05 it y of status, status, 00:00: [place] antepartum antepartum 00 Me dical Branch Generalize Generalize Disease Active U evetteers d anxiety d anxiety 6-11 ity of disorder disorder 00:00: [place] Medical Branch Asthma Asthma Disease Active Overview: Univer s 6-11 Formattin ity of 00:00: g of this [place] 00 note Medical might be Branch different from the original. ICD10 Diagnosis Term [employer] Utility Allergies, Adverse Reactions, Alerts Allergy Allergy Status Severity Reaction(s) Onset Inactive Treating Comm ents Source Name Type Date Date Clinician NO KNOWN Drug Active Univers ALLERGIE Class ity of S [facility] [place] [facility] Social History Social Habit Start Date Stop Date Quantity Comments Source Exposure to 2021-10-18 2021-10-28 Not sure University of SARS-CoV-2 00:00:00 15:55:00 [facility] (event) Branch Alcohol intake 2021-10-28 2021-10-28 Ex-drinker University 00:00:00 00:00:00 (finding) [facility] [place] [facility] Tobacco use and 2014-06-06 2014-06-06 Smokeless tobacco Un iversity of exposure 00:00:00 00:00:00 non-user [facility] [place] [facility] History of 2014-05-07 Cigarette Smoker Universi ty of tobacco use 00:00:00 [facility] [place] [facility] Sex Ass[birth year] At [birth year] Universit y of 00:00:00 00:00:00 [facility] [place] [facility] Smoking Status Start Date Stop Date Source Ex-smoker 2014-06-06 00:00:00 2014-06-06 00:00:00 Universi ty of [facility] [place] [facility] Medications Ordered Filled Start Stop Current Ordering Indication Dosage Frequency Signature Comments Components Source Medication Medication Date Date Medication? Clinician (SIG) Name Name phentermine Yes 30mg Take 30 mg Univers 30 mg 5-02 by mouth ity of capsule 15:53: every [place] [address] morning. Medical Last dose Branch was Thursday10/26/21 phentermine Yes 30mg Take 30 mg Univers 30 mg 5-02 by mouth ity of capsule 15:53: every [place] 19 morning. Medical Last dose Branch was Thursday10/26/21 phentermine Yes 30mg Take 30 mg Univers 30 mg 5-02 by mouth ity of capsule 15:53: every [place] 19 morning. Medical Last dose Branch was Thursday10/26/21 Yes [id number] Take by Univers vit 4-25 09 mouth. ity of calc,iron,f 16:37: [place] [address] Medical ( Branch VITAMIN ORAL) Yes [id number] Take by Univers vit 4-25 09 mouth. ity of calc,iron,f 16:37: [place] [address] Medical ( Branch VITAMIN ORAL) Yes [id number] Take by Univers vit 4-25 09 mouth. ity of calc,iron,f 16:37: [place] [address] Medical ( Branch VITAMIN ORAL) metroNIDAZO Yes [id number] 500mg Take 1 Univers LE 500 mg 4-14 tablet by ity o f tablet 00:00: mouth [place] 00 every 12 Medical (twelve) Branch hours. metroNIDAZO 2021-0 Yes [id number] 500mg Take 1 Univers LE 500 mg 4-14 tablet by ity o f tablet 00:00: mouth [place] 00 every 12 Medical (twelve) Branch hours. metroNIDAZO 2021-0 Yes [id number] 500mg Take 1 Univers LE 500 mg 4-14 tablet by ity o f tablet 00:00: mouth [place] 00 every 12 Medical (twelve) Branch hours. cyclobenzap 0 Yes TAKE ONE Un bridget rine 10 mg 4-12 (1) ity of tablet 00:00: TABLET(S) [place] 00 BY MOUTH Medical 30 MINUTES Branch PRIOR TO BEDTIME. cyclobenzap 0 Yes TAKE ONE Un bridget rine 10 [...] mg -250 mg combo pack ibuprofen Yes [id number] 800mg Take 1 U nivers 800 mg 3-17 tablet by ity of tablet 00:00: mouth [place] 00 every 8 Medical (eight) Branch hours as needed for Pain (scale 4-6). 0 Yes 1{packe Take 1 Univ ers vit 3-17 t} Packet by ity of 33-iron-fol 00:00: mouth [place] ic-dha 00 daily. Medical (SELECT-OB Branch + DHA) 29 mg iron-1 mg -250 mg combo pack ibuprofen 0 Yes [id number] 800mg Take 1 U nivers 800 mg 3-17 tablet by ity of tablet 00:00: mouth [place] 00 every 8 Medical (eight) Branch hours as needed for Pain (scale 4-6). 2021-0 Yes 1{packe Take 1 Univ ers vit 3-17 t} Packet by ity of 33-iron-fol 00:00: mouth [place] ic-dha 00 daily. Medical (SELECT-OB Branch + DHA) 29 mg iron-1 mg -250 mg combo pack ibuprofen Yes [id number] 800mg Take 1 U nivers 800 mg 3-17 tablet by ity of tablet 00:00: mouth [place] 00 every 8 Medical (eight) Branch hours as needed for Pain (scale 4-6). ferrous Yes [id number] 325mg Take 1 Un bridget sulfate 325 9-26 tablet by ity of mg (65 mg 00:00: mouth 3 [place] iron) 00 (three) Medical tablet times Branch daily with meals. ascorbic Yes [id number] 500mg Take 1 U nivers acid, 9-26 tablet by ity of vitamin C, 00:00: mouth 2 [place] 500 mg 00 (two) Medical tablet times Branch daily. ferrous Yes [id number] 325mg Take 1 Un bridget sulfate 325 9-26 tablet by ity of mg (65 mg 00:00: mouth 3 [place] iron) 00 (three) Medical tablet times Branch daily with meals. ascorbic Yes [id number] 500mg Take 1 U nivers acid, 9-26 tablet by ity of vitamin C, 00:00: mouth 2 [place] 500 mg 00 (two) Medical tablet times Branch daily. ferrous Yes [id number] 325mg Take 1 Un bridget sulfate 325 9-26 tablet by ity of mg (65 mg 00:00: mouth 3 [place] iron) 00 (three) Medical tablet times Branch daily with meals. ascorbic Yes [id number] 500mg Take 1 U nivers acid, 9-26 tablet by ity of vitamin C, 00:00: mouth 2 [place] 500 mg 00 (two) Medical tablet times Branch daily. Immunizations Ordered Filled Immunization Date Status Comments [facility] e Immunization Name Name Rho (d) Immune 2021-09-05 Completed University of Globulin 00:00:00 [facility] [place] [facility] Rho (d) Immune 2021-09-05 Completed University of Globulin 00:00:00 [facility] [place] [facility] Rho (d) Immune 2021-09-05 Completed University of Globulin 00:00:00 [facility] [place] [facility] Rho (d) Immune 2021-07-03 Completed University of Globulin 00:00:00 [facility] [place] [facility] Rho (d) Immune 2021-07-03 Completed University of Globulin 00:00:00 [facility] [place] [facility] Rho (d) Immune 2021-07-03 Completed University of Globulin 00:00:00 [facility] [place] [facility] Rho (d) Immune 2020-06-02 Completed University of Globulin 00:00:00 [facility] [place] [facility] Rho (d) Immune 2020-06-02 Completed University of Globulin 00:00:00 [facility] [place] [facility] Rho (d) Immune 2020-06-02 Completed University of Globulin 00:00:00 [facility] [place] [facility] Rho (d) Immune 2020-03-27 Completed University of Globulin 00:00:00 [facility] [place] [facility] Rho (d) Immune 2020-03-27 Completed University of Globulin 00:00:00 [facility] [place] [facility] Rho (d) Immune 2020-03-27 Completed University of Globulin 00:00:00 [facility] [place] [facility] TDAP 2020-03-22 Completed University of 00:00:00 [facility] [place] [facility] TDAP 2020-03-22 Completed University of 00:00:00 [facility] [place] [facility] TDAP 2020-03-22 Completed University of 00:00:00 [facility] [place] [facility] Rho (d) Immune 2019-11-29 Completed University of Globulin 00:00:00 [facility] [place] [facility] Rho (d) Immune 2019-11-29 Completed University of Globulin 00:00:00 [facility] [place] [facility] Rho (d) Immune 2019-11-29 Completed University of Globulin 00:00:00 [facility] [place] [facility] Rho (d) Immune 2018-08-03 Completed University of Globulin 00:00:00 [facility] [place] [facility] Rho (d) Immune 2018-08-03 Completed University of Globulin 00:00:00 [facility] [place] [facility] Rho (d) Immune 2018-08-03 Completed University of Globulin 00:00:00 [facility] [place] [facility] TDAP 2012-07-23 Completed University of 00:00:00 [facility] [place] [facility] TDAP 2012-07-23 Completed University of 00:00:00 [facility] [place] [facility] TDAP 2012-07-23 Completed University of 00:00:00 [facility] [place] [facility] Rubella 2011-02-03 Completed University of 00:00:00 [facility] [place] [facility] Rubella 2011-02-03 Completed University of 00:00:00 [facility] [place] [facility] Rubella 2011-02-03 Completed University of 00:00:00 [facility] [place] [facility] Procedures This patient has no known procedures. Encounters Start End Encounter Admission Attending Care Care Encounter Source Date/Time Date/Time Type Type Clinicians Facility Department ID 2021-10-18 Outpatient R ADUM, [facility] RN CHEMICAL DEPENDENCY [id number] Univers 14:14:52 JESSICA ity of [facility] [place] [facility] 2021-04-29 Emergency [facility] [id number] Univers 00:54:21 ity of [facility] [place] [facility] 2021-04-27 Outpatient P [facility] MARLEEN [id number] Univers 09:09:58 ity of [facility] [place] [facility] 2021-04-27 Outpatient P [facility] MARLEEN [id number] Univers 08:24:44 ity of [facility] [place] [facility] 2021-04-27 Outpatient P [facility] MARLEEN [id number] Univers 05:48:13 ity of [facility] [place] [facility] 2021-04-27 Outpatient P [facility] AMRLEEN [id number] Univers 01:10:13 ity of [facility] [place] [facility] 2021-04-27 Outpatient P [facility] MARLEEN [id number] Univers 01:07:31 ity of [facility] [place] [facility] 2021-04-27 Emergency [facility] [id number] Univers 01:07:04 ity [facility] 2022-07-07 2022-07-07 Case MERRITT PersonLudy [id number] Univers 00:00:00 00:00:00 Management Tamiko MIRANDA [id number] ity of [place] 4.2.7.2.686 [facility] [id number] [facility] 086 Branch 2021-10-31 2021-10-31 Outpatient R YUMIKO, [facility] [id number] Univers 15:00:00 15:00:00 SHANTA ity of [facility] [place] [facility] 2021-10-30 2021-10-30 Patient Mika [facility] OCAMPO [id number] Univers 00:00:00 00:00:00 Secure Msg Chichi GRAHAM [id number] ity of PEDI[place] [facility] [id number] [facility] 134 Branch 2021-10-29 2021-10-29 Cooling Pan Tender Janna, Elliot Lab Main [facility] 1.2.8 40.114 [id number] Univers 14:15:00 14:30:00 Visit Bhupinder RiveraTON [id number] ity of [place] 4[place] [phone] [place] dical NAL 353 [facility] 2021-10-29 2021-10-29 Laboratory Only, Adc Test [facility] 1.2.840. 114 [id number] Univers 14:00:00 14:15:00 Only Adum, Jessica MONTIEL [id number] ity of [place] 4[place]2.7.2.[place] [id number] [facility] [address] [place] 2021-10-29 2021-10-29 [facility] [id number] Univers 14:00:00 14:00:00 [facility] 2021-10-28 2021-10-28 Orders Doctor IVAN 1.2.840.114 [id number] Univers 00:00:00 00:00:00 Only Unassigned, REY 350.1.13.10 ity of [facility] 4.2.7.2.686 Som as [id number] [facility] [address] [place] 2021-10-22 2021-10-22 Outpatient R [facility] [id number] Univers 11:15:00 11:15:00 ity of [facility] [place] [facility] 2021-10-22 2021-10-22 Outpatient R AD, [facility] [id number] Univers 11:15:00 11:15:00 JESSICA ity [facility] 2021-10-22 2021-10-22 Telephone [place] 1.2.125.143 [id number] Univers 00:00:00 00:00:00 Jessica Glen MONTIEL [id number] ity of [place] 4[place] [id number] [place] dical NAL 134 [facility] 2021-10-15 2021-10-15 Outpatient R AD, [facility] [id number] Univers 08:45:00 09:23:15 JESSICA ity [facility] 2021-10-15 2021-10-15 Office [place] 1.2.840.114 [id number] Univers 08:45:00 09:23:15 Visit Jessica MONTIEL 350.1.13.10 ity of [place] 4.2.7.2.[place] [id number] Nc dic[address] 2021-10-10 2021-10-10 Case Yumiko [facility] 1.2.213.846 [id number] Univers 00:00:00 00:00:00 Management Shanta MONTIEL [id number] ity of [place] 4.[place].7.2.[place] [id number] Nc dic[address] 2021-10-09 2021-10-09 Outpatient R AD, [facility] [id number] Univers 16:15:00 17:06:32 JESSICA skinner [facility] 2021-10-09 2021-10-09 Routine Yumiko Shanta [facility] 1.2.840.11 [id number] Univers 16:15:00 17:06:32 Adum, Jessica MONTIEL 350.1.13.10 ity of Visit [place] 4.2.7.2.[place] [id number] [address] 2021-10-04 2021-10-04 Outpatient R AD, [facility] [id number] Univers 16:15:00 16:15:00 JESSICA skinner [facility] 2021-09-12 2021-09-12 Emergency [facility] [id number] Univers 09:56:00 17:06:00 MARTÍN skinner [facility] 2021-09-12 2021-09-12 Emergency [facility] 1.2.187.733 [id number] Univers 09:56:00 17:06:00 Martín MONTIEL 350.1.13.10 i ty of [place] 4.2.[place].2.[place] [id number] [address] 2021-09-12 2021-09-12 Telephone Adum, [facility] 1.2.780.285 [id number] Univers 00:00:00 00:00:00 Jessica MONTIEL [id number] ity [facility] 4.2.[place] [id number] N[place] dical NAL [address] [place] [address] 2021-09-12 2021-09-12 Telephone Daquan Miller [facility] 1.2.840.114 [id number] Univers 00:00:00 00:00:00 Smith MONTIEL 350.1.13.10 i ty of [facility] 4.2.7.2.[place] [phone] N[place] dical NAL [address] [place] [address] 2021-09-10 2021-09-10 Nurse Nurse, [facility] 1.2.840.114 [id number] Univers 14:30:00 15:13:57 Visit Jessica Littlejohn 350.1.13.10 ity of [place] 4.2.7.2.[place] [id number] Nc dical NAL [address] [place] [address] 2021-09-10 2021-09-10 Outpatient R ADUM, [facility] [id number] Univers 14:30:00 14:30:00 JESSICA ity [facility] 2021-09-06 2021-09-06 Outpatient R ADUM, [facility] [id number] Univers 16:15:00 16:15:00 JESSICA ity [facility] 2021-09-03 2021-09-05 [facility] Lenard Gray [facility] 1.2.840.114 [id number] Univers 18:15:00 09:43:00 Encounter Jessica Littlejohn 350.1.13.10 ity of [facility] 4.2.7.2.[place] [id number] [facility] [address] [place] [address] 2021-09-03 2021-09-03 Outpatient R ADUM, [facility] MARLEEN [id number] Univers 14:30:00 15:35:57 JESSICA ity [facility] 2021-09-03 2021-09-03 Nurse Nurse, [facility] 1.2.840.114 [id number] Univers 14:30:00 14:45:00 Visit Jessica Littlejohn 350.1.13.10 ity of [place] 4[place] [id number] N[place] dical NAL 134 [facility] 2021-09-03 2021-09-03 Outpatient R AD, [facility] [id number] Univers 14:30:00 14:30:00 JESSICA ity [facility] 2021-09-03 2021-09-03 Orders Doctor IVAN 1.2.840.114 [id number] Univers 00:00:00 00:00:00 Only Unassigned, REY 350.1.13.10 ity of [place] [facility] 4.2.7.2.686 Som as [id number] [address] 2021-08-30 2021-08-30 Outpatient R AD, [facility] [id number] Univers 16:15:00 16:46:57 JESSICA itdominick [facility] 2021-08-30 2021-08-30 Routine Adum, [facility] 1.2.840.114 [id number] Univers 16:15:00 16:46:57 Jessica MOTNIEL 350.1.13.10 ity of Visit [place] 4[place] [id number] Nc dical NAL [address] [place] [address] 2021-08-28 2021-08-28 Telephone Adum, [facility] [id number] [id number] Univers 00:00:00 00:00:00 Jessica MONTIEL 350.1.13.10 ity of [place] 4.2.7.2.[place] [id number] N[place] dical NAL 134 [facility] 2021-08-26 2021-08-26 Outpatient R ADUM, [facility] [id number] Univers 11:15:00 11:15:00 JESSICA skinner [facility] 2021-08-26 2021-08-26 Cooling Pan Tender 2, Adc Lab [facility] 1.2.840.114 [id number] Univers 11:15:00 11:15:00 Visit AdJessica pike 350.1.13.10 ity of [place] 4.2.7.2.[place] [id number] N[place] dical NAL 353 [facility] 2021-08-26 2021-08-26 Nurse Nurse, [facility] 1.2.840.114 [id number] Univers 10:00:00 10:46:20 Visit Adum, Jessica MONTIEL 350.1.13.10 ity of [place] 4.2.7.2.[place] [id number] [facility] 134 [facility] 2021-08-23 2021-08-23 Outpatient R AD, [facility] [id number] Univers 14:00:00 14:00:00 JESSICA itdominick [facility] 2021-08-23 2021-08-23 Routine Adum, [facility] 1.2.840.114 [id number] Univers 10:45:00 11:41:50 Jessica MUNOZTL 350.1.13.10 ity of Visit [place] 4.[place] [id number] [address] 2021-08-23 2021-08-23 Orders Doctor IVAN 1.2.840.114 [id number] Univers 00:00:00 00:00:00 Only Unassigned, REY 350.1.13.10 ity of [place] [facility] 4.2.7.2.686 Som as [id number] [address] 2021-08-06 2021-08-06 Outpatient R AD, [facility] [id number] Univers 10:45:00 11:30:37 JESSICA skinner [facility] 2021-08-06 2021-08-06 Routine Ad, [facility] 1.2.840.114 [id number] Univers 10:45:00 11:30:37 Jessica MONTIEL 350.1.13.10 ity of [place] 4[place] [id number] Nc dic[address] 2021-08-02 2021-08-02 Outpatient R AD, [facility] [id number] Univers 13:15:00 13:15:00 JESSICA skinner [facility] 2021-08-02 2021-08-02 Telephone Adum, [facility] [id number] Univers 00:00:00 00:00:00 Jessica MONTIEL 350.1.13.10 ity of [place] 4[place] [id number] [facility] 134 [facility] 2021-07-31 2021-07-31 Outpatient R ADUM, [facility] [id number] Univers 13:15:00 13:15:[facility] 2021-07-30 2021-07-30 Laboratory Only, Ang Db Test [facility] 1.2.8 40.114 [id number] Univers 12:30:00 12:45:00 Only Unknown, Attending HEALTH 350.1.13.10 ity of [place] 4.2.7.2.686 Som as QUAN?BLEA [id number] [address] MED[facility] 2021-07-30 2021-07-30 Outpatient R NERY, [facility] [id number] Univers 12:30:00 12:30:00 ROLY ity of [facility] [place] [facility] 2021-07-18 2021-07-18 Outpatient R AD, [facility] [id number] Univers 16:15:00 17:03:01 JESSICA [facility] 2021-07-18 2021-07-18 Routine Adum, [facility] 1.2.840.114 [id number] Univers 16:15:00 17:03:01 Jessica MONTIEL 350.1.13.10 ity of [place] [id number] [facility] 134 [facility] 2021-07-18 2021-07-18 Orders Doctor IVAN 1.2.840.114 [id number] Univers 00:00:00 00:00:00 Only Unassigned, REY 350.1.13.10 ity of [place] [facility] 4.2.7.2.686 Som as [id number] [address] 2021-07-17 2021-07-17 Outpatient R ADUM, [facility] [id number] Univers 10:45:00 10:45:00 JESSICA [facility] 2021-07-17 2021-07-17 Outpatient R ADUM, [facility] [id number] Univers 10:45:00 10:45:00 JESSICA dominick [facility] 2021-07-09 2021-07-09 Cooling Pan Tender Ultrasound, Adc [facility] 1.2 .840.114 [id number] Univers 11:15:00 11:44:10 Visit MillerDaquan Smith MONTIEL 350.1.13.10 ity [facility] 4[place] [id number] N[place] dical NAL 134 [facility] 2021-07-09 2021-07-09 Outpatient P [facility] [id number] Univers 11:15:00 11:15:00 ity [facility] 2021-07-09 2021-07-09 Outpatient P MILLER DAQUAN [facility] [id number] Univers 11:15:00 11:15:00 ity [facility] [facility] [place] 2021-07-03 2021-07-03 Outpatient R ADUM, [facility] [id number] Univers 11:00:00 11:20:36 JESSICA dominick [facility] 2021-07-03 2021-07-03 Routine Ad, [facility] 1.2.840.114 [id number] Univers 11:00:00 11:20:36 Jessica MONTIEL [id number] [id number] [phone] [place] dical NAL 134 [facility] 2021-07-03 2021-07-03 Cooling Pan Tender 2, Adc Lab [facility] 1.2.840.114 [id number] Univers 08:30:00 10:04:07 Visit Jessica Littlejohn [id number] it[place] of [id number] [phone] [place] dical NAL 353 [facility] 2021-06-25 2021-06-25 Outpatient P DOMITILA NAPIER [facility] [id number] Univers 09:30:00 09:30:00 DOMITILA NAPIER dominick [facility] 2021-06-18 2021-06-18 Outpatient P OMERE, [facility] [id number] Univers 08:00:00 08:00:00 CHASEDominick skinner [facility] 2021-06-05 2021-06-05 Outpatient R ADUM, [facility] [id number] Univers 16:15:00 17:02:46 JESSICA skinner [facility] 2021-06-05 2021-06-05 Routine Adum, [facility] [id number] Univers 16:08:59 17:02:46 Jessica MUNOZTL [id number] ity of Visit [id number] [phone] Nc dical NAL 134 [facility] 2021-06-05 2021-06-05 Cooling Pan Tender 2, Adc Lab [facility] 1.2.840.114 [id number] Univers 08:15:23 08:30:23 Visit Jessica Littlejohn [id number] ity of [id number] [phone] Nc dical NAL 353 [facility] 2021-05-21 2021-05-21 Outpatient R ADUM, [facility] [id number] Univers 11:00:00 11:00:00 JESSICA dominick [facility] 2021-05-15 2021-05-15 Outpatient R ADUM, [facility] [id number] Univers 10:30:00 10:30:00 JESSICA dominick [facility] 2021-05-09 2021-05-09 Cooling Pan Tender Ultrasound, [facility] 1.2 .840.114 [id number] Univers 12:36:32 13:51:32 Visit Domitila Napier FRAME STRAIGHTENER [id number] ity of [facility] [id number] Som as MATERNAL [phone] [facility] ical & CHILD [address] [place] [address] 2021-05-09 2021-05-09 Outpatient P DOMITILA NAPIER [facility] [id number] Univers 12:45:00 12:45:00 DOMITILA NAPIER [facility] 2021-05-062021-05-06 Outpatient P [facility] [id number] Univers 08:00:00 08:00:00 ity of [facility] 2021-05-05 2021-05-05 Urgent Provider, [facility] 1.2.840.114 [id number] Univers 19:59:02 20:19:02 Care Pako [facility] [facility] [id number] ity of [place] [id number] Som as QUAN?BLEA [phone] Nc dicalexa [address] MEDICAL OFFICE BUILDING 2021-05-05 2021-05-05 Outpatient R SIOMARA [facility] [id number] Univers 20:00:00 20:00:00 [facility]-04-17 2021-04-17 Routine Adum, [facility] 1.2.840.114 [id number] Univers 11:32:06 12:06:52 Jessica Montiel [id number] ity of [id number] [phone] Nc dical nal 134 [facility] 2021-04-17 2021-04-17 Outpatient R ADUM, [facility] [id number] Univers 11:15:00 11:15:00 JESSICA ity [facility] 2021-04-08 2021-04-08 Telephone Ad, [facility] [id number] Univers 00:00:00 00:00:00 Jessica Montiel [id number] [place] of [id number] [phone] Nc dical nal 134 [facility] 2021-04-02 2021-04-02 Telephone Adum, [facility] [id number] Univers 00:00:00 00:00:00 Jessica Montiel [id number] ity of [id number] [phone] Nc dical nal 134 [facility] 2021-03-24 2021-03-24 Case Adum, [facility] 1.2.840.114 [id number] Univers 00:00:00 00:00:00 Management Jessica Montiel [id number] [place] of [id number] [phone] Nc dical nal 134 [facility] 2021-03-22 2021-03-22 Cooling Pan Tender 2, Adc Lab [facility] 1.2.840.114 [id number] Univers 08:17:35 08:32:35 Visit Adum, Jessica Montiel [id number] it[place] of [id number] [phone] Nc dical nal 353 [facility] 2021-03-22 2021-03-22 Outpatient R ADMAXX, [facility] [id number] Univers 08:30:00 08:30:00 JESSICA ity of [facility] 2021-03-22 2021-03-22 Orders Ad[facility] 1.2.840.114 [id number] Univers 00:00:00 00:00:00 Only Jessica LE [id number] i ty of [facility] [id number] Som as [phone] [address] 2021-03-22 2021-03-22 Case Adum, [facility] 1.2.840.114 [id number] Univers 00:00:00 00:00:00 Management Jessica Montiel [id number] [place] of [id number] [phone] Nc dical nal 134 [facility] 2021-03-21 2021-03-21 Outpatient R [facility] [id number] Univers 08:30:00 08:30:00 ity of [facility] 2021-03-20 2021-03-20 [place] 1.2.840.114 [id number] Univers 13:51:18 15:03:16 Jessica Montiel [id number] ity of [id number] [phone] Nc dical nal 134 [facility] 2021-03-20 2021-03-20 Outpatient R CHALO [facility] [id number] Univers 13:30:00 13:30:00 JESSICA ity [facility] 2021-03-11 2021-03-11 Outpatient R DAQUAN MILLER [facility] [id number] Univers 13:30:00 13:30:00 ity [facility] 2021-02-28 2021-02-28 Outpatient R DAQUAN MILLER [facility] [id number] Univers 10:00:00 10:00:00 ity [facility] 2020-09-06 2020-09-06 Outpatient R YUMIKO [facility] [id number] Univers 09:30:00 09:30:00 SHANTA [facility] 2020-08-16 2020-08-16 Outpatient R DAQUAN MILLER [facility] [id number] Univers 13:30:00 13:30:00 ity [facility] 2020-07-24 2020-07-24 Outpatient R DAQUAN MILLER [facility] [id number] Univers 16:00:00 16:00:00 ity [facility] 2020-07-12 2020-07-12 [facility] [id number] Univers 08:45:00 08:45:00 ity [facility] 2020-06-25 2020-06-25 Outpatient R YUMIKO [facility] [id number] Univers 10:30:00 10:30:00 [facility]-06-06 2020-06-06 Outpatient X ANGELA [facility] [id number] Univers 08:36:00 20:45:00 ity [facility] 2020-05-28 2020-05-28 Outpatient R DAQUAN MILLER [facility] [id number] Univers 09:15:00 09:15:00 ity [facility] 2020-05-21 2020-05-21 Outpatient R DAQUAN MILLER [facility] [id number] Univers 10:30:00 10:30:00 ity [facility] 2020-05-16 2020-05-16 Outpatient R YUMIKO [facility] [id number] Univers 11:30:00 11:30:00 SHANTA ity [facility] 2020-05-14 2020-05-14 Outpatient R DAQUAN MILLER [facility] [id number] Univers 16:00:00 [facility]-03 2020-05-03 Outpatient R DAQUAN MILLER [facility] [id number] Univers 13:00:00 13:00:[facility]-04-19 2020-04-19 Outpatient R YUMIKO [facility] [id number] Univers 11:30:00 11:30:00 SHANTA skinner [facility] 2020-04-05 2020-04-05 Outpatient R DAQUAN MILLER [facility] [id number] Univers 09:15:00 09:15:00 [facility] 2020-03-27 2020-03-27 Outpatient R [facility] [id number] Univers 15:00:00 15:00:00 [facility] 2020-03-23 2020-03-23 Outpatient R [facility] [id number] Univers 10:00:00 10:00:00 [facility] 2020-03-22 2020-03-22 Outpatient R YUMIKO [facility] [id number] Univers 11:15:00 11:15:00 SHANTA [facility] 2020-02-22 2020-02-22 Outpatient R YUMIKO [facility] [id number] Univers 09:15:00 09:15:00 SHANTA [facility] 2020-02-10 2020-02-10 Outpatient R JOSECAMERONESTRELLA [facility] [id number] Univers 15:00:00 15:00:00 SHANTA [facility] 2020-01-27 2020-01-27 Outpatient R JE [facility] [id number] Univers 13:00:00 13:00:00 JORDAN skinner [facility] 2020-01-23 2020-01-23 Outpatient R DAQUAN MILLER [facility] [id number] Univers 11:00:00 [facility]00[facility]-01-13 2020-01-13 Outpatient R JE [facility] [id number] Univers 10:00:00 10:00:00 [facility] 2019-12-27 2019-12-27 Outpatient R [facility]ILLER [facility] [id number] Univers 09:30: 09:30:00 ity [facility] 2019-12-26 2019-12-26 Outpatient Lillian MILLER [facility] [id number] Univers 11:30: 11:30:00 ity [facility] 2019-11-29 2019-11-29 Outpatient R [facility] [id number] Univers 13:30: 13:30:00 ity [facility] 2019-11-28 2019-11-28 Outpatient Lillian [facility] [id number] Univers 11:00:00 11:00:00 [facility] Results This patient has no known results.
[2022-09-02] MEDS ORDERED: FAMOTIDINE 20 MG/2 ML VIAL IV ONE (01:15)
[2022-09-02] MEDS ORDERED: ONDANSETRON 4 MG/2 ML VIAL ONE (01:15)
[2022-09-02] MEDS ORDERED: NA CHLORIDE 0.9% 1,000 ML ONE (01:15)
[2022-09-02] MEDS ORDERED: MORPHINE 4 MG/ML SYR ONE (01:15)
[2022-09-02 01:24] LABS: Urine Blood Negative (Negative); Urine Glucose Negative (Negative); Urine Protein 2+ (Negative); Urine Specific Gravity >=1.030 (1.005-1.030); Urine pH 6.5 (5.0-7.0)
[2022-09-02] MEDS ORDERED: PROMETHAZINE INJ 25 MG/ML AMP ONE (01:30)
[2022-09-02 01:36] LABS: Absolute Lymphocytes (CBC) 4.1 K/uL (0.7-4.9); MCV 84.8 fL (80-100); MPV 7.3 fL (7.6-11.3); RBC Red Blood Cell Count 4.24 M/uL (3.86-4.86)
[2022-09-02 02:10] LABS: ALT/SGPT 14 U/L (13-56); AST/SGOT 15 U/L (15-37); Albumin 3.4 g/dL (3.4-5.0); Alkaline Phosphatase 65 U/L (45-117); BUN Blood Urea Nitrogen 21 mg/dL (7-18); Bicarbonate 26 mmol/L (21-32); Bilirubin Total 0.1 mg/dL (0.2-1.0); Glomerular Filtration Rate 114 ml/min (=/>90); Glucose Level 120 mg/dL (74-106); HCG, Quantitative 1793 mIU/mL (1-3); Lipase 39 U/L (13-75); Potassium 3.3 mmol/L (3.5-5.1); Protein, Total 6.8 g/dL (6.4-8.2); Sodium Level 138 mmol/L (136-145)
[2022-09-02 02:12] LABS: Troponin High Sensitivity < 3.0 pg/mL (<58.9)
[2022-09-02] MEDS ORDERED: POTASSIUM CL SA 10 MEQ TAB PO ONE (03:04)
[2022-09-02 03:40] LABS: Urine Specific Gravity/Preg >1.030 (1.005-1.030)
[2022-09-02 04:11] VITALS: BP 119/70; O2SAT 100
--- NOTE | 2022-09-02 15:03 | RAD REPORT ---
EXAM DESCRIPTION: US - Abdomen Exam Limited - 09/02/2022 2:03 am CLINICAL HISTORY: Upper abd pain TECHNIQUE: Real-time ultrasound of the right upper quadrant with image documentation. COMPARISON: No relevant prior studies available. FINDINGS: Gallbladder: Numerous gallstones. No gallbladder wall thickening or pericholecystic fl uid. Common bile duct: Unremarkable as visualized. No stones. No dilation. IMPRESSION: Cholelithiasis without secondary signs to suggest acute cholecystitis. Electronically signed by: Tavo Fletcher MD 09/02/2022 2:22 AM PROFESSOR OF VOICE Due to temporary technical issues with the PACS/Fluency reporting system, reports are being signed by the in house radiologists without review as a courtesy to insure prompt reporting. The interpreting radiologist is fully responsible for the content of the report.
--- NOTE | 2022-09-02 15:26 | RAD REPORT ---
EXAM DESCRIPTION: US - TRANSVAG OB - 09/02/2022 2:04 am CLINICAL HISTORY: Abd pain TECHNIQUE: Real-time transvaginal obstetrical ultrasound of the maternal pelvis and a first trimeste r with image documentation. Transvaginal imaging was used for better evaluation of the fe tus and adnexa. COMPARISON: No relevant prior studies available. FINDINGS: Gestation: There is an intrauterine sac or fluid collection which measures approximately 5.1 mm. This could correspond to a gestational sac of approximately 5 weeks 2 days. There is no demonstrable yolk sac or embryonic pole with cardiac activity. Placenta/amniotic fluid: Cannot be adequately evaluated due to the early gestational age. Uterus/cervix: The uterus is anteverted and measures 11.3 x 7.3 x 7.9 cm. No myometrial mass. Ovaries: The right ovary measures 3.8 x 1.9 x 2.9 cm. There is a 1.1 cm dominant follicle. Norm al blood flow. The left ovary is not visualized. No adnexal mass. Free fluid: No free fluid. IMPRESSION: Intrauterine sac or fluid collection possibly representing an early gestational sac. B ecause there is no yolk sac, it cannot be confirmed that this is a normal intrauterine . A pseudosac with ectopic cannot be excluded. Careful follow-up including correlation with quantitative beta hCG levels is recommended. Electronically signed by: Tavo Fletcher MD 09/02/2022 2:26 AM KILN REMOVER Due to temporary technical issues with the PACS/Fluency reporting system, reports are being signed by the in house radiologists without review as a courtesy to insure prompt reporting. The interpreting radiologist is fully responsible for the content of the report.
--- NOTE | 2022-09-03 13:06 | EKG ---
Test Date: 2022-09-02 Test Time: 01:36:22 Box Inspector: JOSE JUAN MEASUREMENT RESULTS: Intervals: Rate: 51 OK: 198 QRSD: 88 QT: 438 QTc: 403 [place]: P: 39 OK: 198 QRS: 62 T: 49 INTERPRETIVE STATEMENTS: Sinus bradycardia with sinus arrhythmia Otherwise normal ECG No previous ECG available for comparison Electronically Signed On 09-03-22 13:03:31 AUDIOVISUAL PRODUCTION SPECIALIST by Michael Badillo
--- NOTE | 2022-09-19 14:16 | ER ---
Nurse's Notes [facility] Name: Rolanda Santiago Age: 27 yrs Sex: Female : 1995 Arrival Date: 09/02/2022 Time: 00:56 Bed 7 Private MD: Diagnosis: Other cholelithiasis without obstruction; state, incidental Presentation: 09/02 01:00 Chief complaint: Patient states: she is having severe abdominal pain since last night. bb Coronavirus screen: At this time, the client does not indicate any symptoms associated with coronavirus-19. Ebola Screen: No symptoms or risks identified at this time. 01:00 Method Of Arrival: Ambulatory bb 02:00 Initial Sepsis Screen: Does the patient meet any 2 criteria? No. Patient's initial bb sepsis screen is negative. Does the patient have a suspected source of infection? No. Patient's initial sepsis screen is negative. Risk Assessment: Do you want to hurt yourself or someone else? Patient reports no desire to harm self or others. Onset of symptoms was September 01, 2022. 02:00 Acuity: LAURA 2 bb DIAGRAMMER: 02:45 pt does not know if she is bb Historical: - Allergies: 02:45 No Known Allergies; bb - Home Meds: 02:45 None [Active]; bb - PSHx: 02:45 D\T\C; Nemesio collins; bb - Immunization history:: Adult Immunizations unknown. - Social history:: Smoking status: Reported history of juuling and/or vaping. Screenin:00 [facility] ED Fall Risk Assessment (Adult) History of falling in the last 3 months, pf1 including since admission No falls in past 3 months (0 pts) Confusion or Disorientation No (0 pts) Intoxicated or Sedated No (0 pts) Impaired Gait No (0 pts) Mobility Assist Device Used No (0 pt) Altered Elimination No (0 pt) Score/Fall Risk Level 0 - 2 = Low Risk Oriented to surroundings, Maintained a safe environment, Educated pt \T\ family on fall prevention, incl call for assistance when getting out of bed, Assessed \T\ reinforced patient's understanding of fall precautions, Provided non-skid footwear, Hourly rounding (assess needs \T\ fall precautionary measures) done, Used ambulatory aids as needed (educated on \T\ assisted with), Used gait belt as appropriate. Abuse screen: Denies threats or abuse. Nutritional screening: No deficits noted. Tuberculosis screening: No symptoms or risk factors identified. Assessment: 01:00 General: Appears in no apparent distress. uncomfortable, well groomed, well developed, pf1 Behavior is cooperative, appropriate for age, anxious, quiet. 01:00 Pain: Complains of pain in abdomen and epigastric region Pain currently is 10 out of 10 pf1 on a pain scale. Neuro: No deficits noted. Level of Consciousness is awake, alert, obeys commands, Oriented to person, place, time, situation. Cardiovascular: No deficits noted. Respiratory: No deficits noted. Airway is patent Trachea midline Respiratory effort is even, unlabored, Respiratory pattern is regular, symmetrical, Breath sounds are clear bilaterally. GI: Abdomen is round non-distended, Bowel sounds present X 4 quads. Abd is soft Abdomen is tender to palpation in left upper quadrant and right upper quadrant. : No deficits noted. No signs and/or symptoms were reported regarding the genitourinary system. EENT: No deficits noted. No signs and/or symptoms were reported regarding the EENT system. Derm: No deficits noted. No signs and/or symptoms reported regarding the dermatologic system. Musculoskeletal: No deficits noted. No signs and/or symptoms reported regarding the musculoskeletal system. Circulation, motion, and sensation intact. Capillary refill < 3 seconds, Range of motion: intact in all extremities. 02:00 Reassessment: Patient appears in no apparent distress at this time. Patient and/or pf1 family updated on plan of care and expected duration. Pain level reassessed. Patient is alert, oriented x 3, equal unlabored respirations, skin warm/dry/pink. Patient states feeling better. Patient states symptoms have improved. 03:00 Reassessment: Patient appears in no apparent distress at this time. No changes from pf1 previously documented assessment. Patient and/or family updated on plan of care and expected duration. Pain level reassessed. Patient is alert, oriented x 3, equal unlabored respirations, skin warm/dry/pink. Patient states feeling better. Patient states symptoms have improved. Vital Signs: 02:00 BP 119 / 70; Pulse 75; Resp 24 S; Pulse Ox 100% on R/A; Weight 72.57 kg (R); Height 5 bb ft. 3 in. (R); Pain 10/10; 03:30 BP 125 / 83; Pulse 81; Resp 18; Pulse Ox 97% on R/A; Pain 0/10; pf1 02:00 Body Mass Index 28.34 (72.57 kg, 160.02 cm) bb 02:00 Pain Scale: Adult bb 03:30 Pain Scale: Adult pf1 ED Course: 00:56 Patient arrived in ED. ja2 01:20 Initial lab(s) drawn, by me, sent to lab. Inserted saline lock: 20 gauge in right bb antecubital area, using aseptic technique. Blood collected. 02:45 Triage completed. bb 02:45 Arm band placed on Patient placed in an exam room, on a stretcher, on pulse oximetry. bb Family accompanied patient. 02:54 Buffy Hutchins FNP-C is PHCP. kb 02:54 Maxwell Paulino MD is Attending Physician. kb 03:00 Patient has correct armband on for positive identification. Bed in low position. Call pf1 light in reach. 03:17 Maggie kendrick, ANDRES is Primary Nurse. pf1 03:19 Urine --Ancillary (enter results) Sent. pf1 03:20 No provider procedures requiring assistance completed. pf1 03:57 IV discontinued, intact, bleeding controlled, No redness/swelling at site. Pressure pf1 dressing applied. Administered Medications: 02:48 Drug: NS 0.9% IV 1000 ml {Note: given at 0122.} Route: IV; Rate: 1000 ml; Site: right bb antecubital; 03:18 Follow up: IV Status: Completed infusion; IV Intake: 1000ml pf1 03:18 Follow up: Response: No adverse reaction; Marked relief of symptoms pf1 02:49 Drug: morphine IVP or IV 4 mg {Note: administered at 0122.} Route: IVP; Infused Over: 4 bb mins; Site: right antecubital; 03:18 Follow up: Response: No adverse reaction; Marked relief of symptoms; Pain is decreased; pf1 RASS: Alert and Calm (0) 02:50 Drug: Famotidine IVP 20 mg {Note: administered at 0126.} Route: IVP; Site: right bb antecubital; 03:19 Follow up: Response: No adverse reaction; Marked relief of symptoms pf1 02:53 Drug: Promethazine IM 12.5 mg {Note: administered at 0127.} Route: IM; Site: left bb gluteus; 03:19 Follow up: Response: No adverse reaction; Marked relief of symptoms pf1 03:17 Drug: Potassium Chloride PO 20 mEq Route: PO; pf1 03:19 Follow up: Response: No adverse reaction pf1 Medication: 03:00 VIS not applicable for this client. pf1 Intake: 03:18 IV: 1000ml; Total: 1000ml. pf1 Outcome: 03:08 Discharge ordered by . kb 03:57 Patient left the ED. pf1 03:57 Discharged to home ambulatory. pf1 03:57 Condition: improved pf1 03:57 Discharge instructions given to patient, Instructed on discharge instructions, follow up and referral plans. Demonstrated understanding of instructions, follow-up care. Signatures: Buffy Hutchins, SCREEN PRINTING CLOTH SPREADER-C SCREEN PRINTING CLOTH SPREADER-Tamiko Keller RN RN Joann Willams Pamala RN RN pf1 Corrections: (The following items were deleted from the chart) 02:48 02:48 NS 0.9% IV 1000 ml IV at 1000 ml in right antecubital bb bb
--- NOTE | 2022-09-19 14:16 | EDPHYS ---
Physician Documentation [facility] Name: Rolanda Santiago Age: 27 yrs Sex: Female : 1995 Arrival Date: 09/02/2022 Time: 00:56 Bed 7 Private MD: ED Physician Maxwell Paulino HPI: 09/02 03:12 This 27 yrs old Female presents to ER via Ambulatory with complaints of kb Abdominal Pain. 03:12 The patient presents with abdominal pain in the epigastric area, in the upper abdomen. kb Onset: The symptoms/episode began/occurred this morning. The symptoms do not radiate. Associated signs and symptoms: Pertinent positives: nausea and vomiting, Pertinent negatives: fever. The symptoms are described as sharp. Modifying factors: The symptoms are alleviated by nothing, the symptoms are aggravated by nothing. Severity of pain: At its worst the pain was severe in the emergency department the pain is unchanged. The patient has not experienced similar symptoms in the past. The patient has not recently seen a physician. [employer] PROCESSOR: 02:45 pt does not know if she is bb Historical: - Allergies: 02:45 No Known Allergies; bb - Home Meds: 02:45 None [Active]; bb - PSHx: 02:45 D\T\C; Nemesio collins; bb - Immunization history:: Adult Immunizations unknown. - Social history:: Smoking status: Reported history of juuling and/or vaping. ROS: 02:54 Constitutional: Negative for fever, chills, and weight loss. kb 02:54 Abdomen/GI: Positive for abdominal pain, nausea and vomiting. 02:54 All other systems are negative. Exam: 02:54 Head/Face: Normocephalic, atraumatic. ENT: Moist Mucous membranes Cardiovascular: kb Regular rate and rhythm with a normal S1 and S2. No gallops, murmurs, or rubs. No pulse deficits. Respiratory: Respirations even and unlabored. No increased work of breathing. Talking in full sentences Skin: Warm, dry with normal turgor. Normal color. MS/ Extremity: Pulses equal, no cyanosis. Neurovascular intact. Full, normal range of motion. Neuro: Awake and alert, GCS 15, oriented to person, place, time, and situation. Moves all extremities. Normal gait. 02:54 Constitutional: The patient appears alert, awake, in obvious pain. 02:54 Abdomen/GI: Inspection: abdomen appears normal, Bowel sounds: normal, Palpation: mild abdominal tenderness, in the right upper quadrant and left upper quadrant. Vital Signs: 02:00 BP 119 / 70; Pulse 75; Resp 24 S; Pulse Ox 100% on R/A; Weight 72.57 kg (R); Height 5 bb ft. 3 in. (R); Pain 10/10; 03:30 BP 125 / 83; Pulse 81; Resp 18; Pulse Ox 97% on R/A; Pain 0/10; pf1 02:00 Body Mass Index 28.34 (72.57 kg, 160.02 cm) bb 02:00 Pain Scale: Adult bb 03:30 Pain Scale: Adult pf1 MDM: 02:54 Patient medically screened. kb 03:08 Differential diagnosis: cholecystitis, Cholelithiasis, gastritis, non-specific abd kb pain. Data reviewed: vital signs, nurses notes. Counseling: I had a detailed discussion with the patient and/or guardian regarding: the historical points, exam findings, and any diagnostic results supporting the discharge/admit diagnosis, lab results, radiology results, the need for outpatient follow up, a general surgeon, to return to the emergency department if symptoms worsen or persist or if there are any questions or concerns that arise at home. ED course: Pt is a 27 year old female who presents for upper abd pain, nausea and vomiting that started this morning. Denies fever, diarrhea. On exam pt has mild upper abd tenderness. Serum labs, urinalysis and US ordered. Urine revealed positive . Pt informed and given risks of morphine during . Still requests morphine for pain management. Serum labs and ultrasounds reviewed. Pt educated on diagnostic results and need to follow up with OB and Surgeon. Educated on diet control. Verbal understanding received. . 09/02 02:18 Order name: Urine Dipstick-Ancillary; Complete Time: 03:41 EDMS 09/02 02:18 Order name: CBC with Automated Diff; Complete Time: 03:41 EDMS 09/02 02:18 Order name: ABO/RH typing; Complete Time: 03:41 EDMS 09/02 02:18 Order name: Comprehensive Metabolic Panel; Complete Time: 03:41 EDMS 09/02 02:18 Order name: Troponin High Sensitivity; Complete Time: 03:41 EDMS 09/02 02:18 Order name: Lipase; Complete Time: 03:41 EDMS 09/02 02:18 Order name: HCG, Quantitative; Complete Time: 03:41 EDMS 09/02 03:03 Order name: Urine --Ancillary (enter results) rv1 09/02 03:40 Order name: Urine --Ancillary; Complete Time: 03:41 EDMS Administered Medications: 02:48 Drug: NS 0.9% IV 1000 ml {Note: given at 0122.} Route: IV; Rate: 1000 ml; Site: right bb antecubital; 03:18 Follow up: IV Status: Completed infusion; IV Intake: 1000ml pf1 03:18 Follow up: Response: No adverse reaction; Marked relief of symptoms pf1 02:49 Drug: morphine IVP or IV 4 mg {Note: administered at 0122.} Route: IVP; Infused Over: 4 bb mins; Site: right antecubital; 03:18 Follow up: Response: No adverse reaction; Marked relief of symptoms; Pain is decreased; pf1 RASS: Alert and Calm (0) 02:50 Drug: Famotidine IVP 20 mg {Note: administered at 0126.} Route: IVP; Site: right bb antecubital; 03:19 Follow up: Response: No adverse reaction; Marked relief of symptoms pf1 02:53 Drug: Promethazine IM 12.5 mg {Note: administered at 0127.} Route: IM; Site: left bb gluteus; 03:19 Follow up: Response: No adverse reaction; Marked relief of symptoms pf1 03:17 Drug: Potassium Chloride PO 20 mEq Route: PO; pf1 03:19 Follow up: Response: No adverse reaction pf1 Disposition: 03:18 Co-signature as Attending Physician, Maxwell Paulino MD I reviewed the patient's care sp4 provided by Advanced Practice Provider \T\ agree w/ the diagnosis \T\ care plan. I personally saw the pt \T\ performed a substantive portion of the visit, incldng all aspects of the (History/Exam/Medical Decision Making). Disposition Summary: 09/02/22 03:08 Discharge Ordered Location: Home kb Condition: Stable kb Diagnosis - Other cholelithiasis without obstruction kb - state, incidental kb Followup: kb - With: Emergency Department - When: As needed - Reason: Worsening of condition Followup: kb - With: Private Physician - When: 2 - 3 days - Reason: Recheck today's complaints, Continuance of care, Re-evaluation by your physician Discharge Instructions: - Discharge Summary Sheet kb - Cholelithiasis, Lesn-sn-Guzs kb Forms: - Medication Reconciliation Form kb - Thank You Letter kb - Antibiotic Education kb - Prescription Opioid Use kb Signatures: Dispatcher [employer] EDMS Buffy Hutchins, CORPORATE EXECUTIVE CHEF-C CORPORATE EXECUTIVE CHEF-Tamiko Keller, RN RN bb Maggie kendrick RN RN pf1 Maxwell Paulino MD MD sp4 Corrections: (The following items were deleted from the chart) 03:08 02:54 Abdomen/GI: Inspection: abdomen appears normal, Bowel sounds: normal, kb kb
== END 2022-09-02 03:57 | disposition home or self-care (01) ==
LOC: ER 00:55
DX: K80.80 Other cholelithiasis without obstruction (principal); Z33.1 Pregnant state, incidental
CPT/HCPCS: 93005; 85025; 36415; 86900; 81025; 86901; 84702; 81003; 84484; 83690; 80053; 76705; 76813; 96375; 96372; 96374; 99284; J2550; J7030; J2405

== ENCOUNTER 2024-06-06 13:12 | Emergency (ER) | payer OTHER, SELFPAY ==
--- NOTE | 2024-06-06 14:30 | ER ---
Nurse's Notes [facility] Name: Rolanda Santiago Age: 29 yrs Sex: Female : 1995 Arrival Date: 06/06/2024 Time: 13:12 Bed Waiting Private MD: Diagnosis: ED Course: 06/06 13:14 Patient arrived in ED. mr 13:25 Chicho Merrill PA is PHCP. cp 13:25 Irvin Padilla MD is Attending Physician. cp 14:19 Patient's name was called from ER lobby. No response. cm10 14:28 Patient's name was called from ER lobby. No response. Unable to locate patient. Will cm10 disposition as left without being seen by a provider. Administered Medications: No medications were administered Outcome: 14:29 Patient left the ED. cm10 Signatures: Sidra Martinez, Reg Reg mr Chicho Merrill PA PA Cielo White, RN RN cm10
== END 2024-06-06 14:29 | disposition left against medical advice (07) ==
LOC: ER 13:12
DX: Z02.9 Encounter for administrative examinations, unspecified (principal)

== ENCOUNTER 2024-07-14 17:56 | Inpatient (IN) | payer SELFPAY ==
[2024-07-14] MEDS ORDERED: NA CHLORIDE 0.9% 1,000 ML ONE (18:08)
[2024-07-14 18:27] LABS: Absolute Eosinophils 0.1 K/uL (0-0.5); Absolute Lymphocytes (CBC) 3.9 K/uL (0.7-4.9); Absolute Monocytes 0.7 K/uL (0.1-1.3); Absolute Neutrophil 6.6 K/uL (1.8-8.0); Basophils % 0.3 % (0-1.3); Eosinophils % 1.1 % (0-4.4); Hematocrit 37.9 % (36.0-45.0); Hemoglobin 12.3 g/dL (12.0-15.0); Lymphocytes % 34.5 % (15.3-44.8); MCH 26.8 pg (27.0-35.0); MCHC 32.5 g/dL (32.0-36.0); MCV 82.5 fL (80-100); MPV 7.7 fL (7.6-11.3); Monocytes % 6.3 % (3.3-12.3); Neutrophils % 57.8 % (41.7-73.7); Nucleated Red Blood Cells % 0.1 % (0-0); Platelets 354 thou/uL (152-406); Red Cell Distribution Width 16.4 % (12.1-15.2)
[2024-07-14 18:35] LABS: PT Prothrombin Time 11.3 SECONDS (9.4-12.5); PTT, Activated Partial Thromb 26.7 SECONDS (24.3-36.9); Protime INR 1.08
[2024-07-14 19:08] LABS: Specific Gravity 1.021 (1.005-1.030); Sqamous Epithelial None Seen /HPF (None Seen); Urine Bacteria <20 /HPF (<20); Urine Bilirubin NEGATIVE (Negative); Urine Blood Negative (Negative); Urine Clarity Clear (Clear); Urine Color Light-Yellow (Yellow); Urine Culture Reflex Order NOT NEEDED; Urine Glucose NEGATIVE (Negative); Urine Ketones NEGATIVE (Negative); Urine Microscopic Reflex YN ORDER UMIC; Urine Mucus 2+ /HPF (None Seen); Urine Nitrite NEGATIVE (Negative); Urine Protein NEGATIVE (Negative); Urine RBC <5 /HPF (None Seen); Urine Urobilinogen Normal (Normal); Urine WBC <5 /HPF (<5)
[2024-07-14 19:09] LABS: Barbiturates NEGATIVE (NEGATIVE); Benzodiazepines NEGATIVE (NEGATIVE); Cocaine NEGATIVE (NEGATIVE); METHAMPHETAM NEGATIVE (NEGATIVE); Methadone NEGATIVE (NEGATIVE); Opiates NEGATIVE (NEGATIVE); Phencyclidine NEGATIVE (NEGATIVE); THC Cannibis NEGATIVE (NEGATIVE)
[2024-07-14 19:09] LABS: ALT/SGPT 18 U/L (13-56); AST/SGOT 22 U/L (15-37); Albumin 3.4 g/dL (3.4-5.0); Albumin/Globulin Ratio 0.9 (1.1-1.8); Alkaline Phosphatase 59 U/L (45-117); Anion Gap 10.9 mEq/L (5.0-15.0); BUN Blood Urea Nitrogen 15 mg/dL (7-18); Bicarbonate 25 mEq/L (21-32); Bilirubin Total 0.3 mg/dL (0.2-1.0); Globulin 3.8 g/dL (2.3-3.5); Glomerular Filtration Rate 101 ml/min (=/>90); Glucose Level 99 mg/dL (74-106); Lipase 30 U/L (13-75); Potassium 2.9 mEq/L (3.5-5.1); Protein, Total 7.2 g/dL (6.4-8.2); Sodium Level 139 mEq/L (136-145)
[2024-07-14 19:11] LABS: Bilirubin Direct < 0.2 mg/dL (0-0.2); Bilirubin Indirect, Calculated 0.1 mg/dL (0.2-0.8)
--- NOTE | 2024-07-14 19:26 | RAD REPORT ---
EXAMINATION: CT HEAD WITHOUT CONTRAST CLINICAL INDICATION: Female, 29 years old.SYNCOPE TECHNIQUE: Axial CT images from the skull base to the vertex without intravenous contrast. Coronal an d sagittal reformatted images were created from the data set. One or more of the following dose reduction techniques were used: Automated exposure control, adjustment of the mA and/or kV according to patient size, and/or iterative reconstruction. Unless otherwise specified, incidental findings do not require dedicated imaging follow-up. [id number]. COMPARISON: No prior exam. FINDINGS: INTRACRANIAL: No acute intracranial hemorrhage. No hydrocephalus. No mass effect or midline shift. No significant white matter disease. VASCULATURE: No visualized abnormalities in the arteries or dural venous sinuses. SCALP/SKULL: No significant soft tissue or osseous abnormalities. SINUSES: Trace maxillary sinus thickening. IMPRESSION: No acute intracranial abnormality.
[2024-07-14] MEDS ORDERED: FENTANYL CITR 100 MCG/2 ML ONE (19:49)
[2024-07-14] MEDS ORDERED: ONDANSETRON 4 MG/2 ML VIAL ONE (19:49)
[2024-07-14] MEDS ORDERED: KCL 20 MEQ/100 mL IVPB 100 ML IV ONE (19:50)
--- NOTE | 2024-07-14 20:19 | RAD REPORT ---
Abdomen Exam Limited: 07/14/2024 7:50 PM CLINICAL HISTORY: ABD PAIN STUDY: Limited right upper quadrant ultrasound of abdomen. COMPARISON: 09/02/2022 FINDINGS: Liver: Limited evaluation but grossly unremarkable. Bile ducts: No intrahepatic or extrahepatic biliary ductal dilatation. Common bile duct measures 5 mm. Gallbladder: Cholelithiasis present. No gallbladder wall thickening. The gallbladder is distended. A sonographic Bose sign was reported. IMPRESSION: Cholelithiasis with findings that could indicate acute cholecystitis including positive sonographic M urphy sign and distended gallbladder. No gallbladder wall thickening is noted, however. Common bile duct is normal caliber.
--- NOTE | 2024-07-14 20:52 | EDPHYS ---
Physician Documentation [facility] Name: Rolanda Santiago Age: 29 yrs Sex: Female : 1995 Arrival Date: 07/14/2024 Time: 17:56 Bed 6 Private MD: ED Physician Chicho Gilmore HPI: 07/14 18:05 This 29 yrs old Female presents to ER via Unassigned with unknown complaint. nohelia Historical: - Allergies: 18:23 No Known Drug Allergies; jb4 - PMHx: 18:23 None; jb4 - PSHx: 18:23 Tummy tuck; D\T\C; jb4 - Immunization history:: Adult Immunizations unknown. - Family history:: not pertinent. - Social history:: Smoking status: unknown Patient uses alcohol, occasionally. ROS: 18:06 Constitutional: Negative for fever, chills, and weight loss, Eyes: Negative for injury, nohelia pain, redness, and discharge, ENT: Negative for injury, pain, and discharge, Neck: Negative for injury, pain, and swelling, Cardiovascular: Negative for chest pain, palpitations, and edema, Respiratory: Negative for shortness of breath, cough, wheezing, and pleuritic chest pain, Back: Negative for injury and pain, : Negative for injury, bleeding, discharge, and swelling, MS/Extremity: Negative for injury and deformity, Skin: Negative for injury, rash, and discoloration, Psych: Negative for depression, anxiety, suicide ideation, homicidal ideation, and hallucinations, Allergy/Immunology: Negative for hives, rash, and allergies, Endocrine: Negative for neck swelling, polydipsia, polyuria, polyphagia, and marked weight changes, Hematologic/Lymphatic: Negative for swollen nodes, abnormal bleeding, and unusual bruising, 18:06 Abdomen/GI: Positive for abdominal pain, of the epigastric area, 18:06 Neuro: Positive for near syncope, weakness, Exam: 18:06 Constitutional: This is a well developed, well nourished patient who is awake, alert, nohelia and in no acute distress. Head/Face: Normocephalic, atraumatic. Eyes: Pupils equal round and reactive to light, extra-ocular motions intact. Lids and lashes normal. Conjunctiva and sclera are non-icteric and not injected. Cornea within normal limits. Periorbital areas with no swelling, redness, or edema. ENT: Nares patent. No nasal discharge, no septal abnormalities noted. Tympanic membranes are normal and external auditory canals are clear. Oropharynx with no redness, swelling, or masses, exudates, or evidence of obstruction, uvula midline. Mucous membranes moist. Neck: Trachea midline, no thyromegaly or masses palpated, and no cervical lymphadenopathy. Supple, full range of motion without nuchal rigidity, or vertebral point tenderness. No Meningismus. Chest/axilla: Normal chest wall appearance and motion. Nontender with no deformity. No lesions are appreciated. Cardiovascular: Regular rate and rhythm with a normal S1 and S2. No gallops, murmurs, or rubs. Normal PMI, no JVD. No pulse deficits. Respiratory: Lungs have equal breath sounds bilaterally, clear to auscultation and percussion. No rales, rhonchi or wheezes noted. No increased work of breathing, no retractions or nasal flaring. Abdomen/GI: Soft, non-tender, with normal bowel sounds. No distension or tympany. No guarding or rebound. No evidence of tenderness throughout. Back: No spinal tenderness. No costovertebral tenderness. Full range of motion. Skin: Warm, dry with normal turgor. Normal color with no rashes, no lesions, and no evidence of cellulitis. MS/ Extremity: Pulses equal, no cyanosis. Neurovascular intact. Full, normal range of motion., bilateral aka Neuro: Awake and alert, GCS 15, oriented to person, place, time, and situation. Cranial nerves II-XII grossly intact. Motor strength 5/5 in all extremities. Sensory grossly intact. Cerebellar exam normal. Normal gait. Psych: Awake, alert, with orientation to person, place and time. Behavior, mood, and affect are within normal limits. 18:06 ECG was reviewed by the Attending Physician. 18:10 ECG was reviewed by the Attending Physician. [facility] 18:10 Musculoskeletal/extremity: Circulation is intact in all extremities. Sensation intact. [facility] Compartment Syndrome exam of affected extremity: is normal. Weight bearing: able to fully bear weight, DVT Exam: No signs of deep vein thrombosis. no pain, no swelling, no tenderness, negative Homans' sign noted on exam, no appreciated bluish discoloration, no erythema, no increased warmth, Vital Signs: 18:20 BP 114 / 86; Pulse 52; Resp 28; Pulse Ox 96% on R/A; jb4 20:02 BP 108 / 71; Pulse 58; Resp 16; Pulse Ox 96% on R/A; jb4 21:00 BP 120 / 88; Pulse 111; Resp 16; Pulse Ox 93% on R/A; jb4 22:00 BP 126 / 91; Pulse 65; Resp 16; Temp 97.7; Pulse Ox 96% on R/A; jb4 [place] Coma Score: 18:10 Eye Response: spontaneous(4). Motor Response: obeys commands(6). Verbal Response: nohelia oriented(5). Total: 15. MDM: 17:58 Medical Screening Exam initiated nohelia 18:07 Differential Diagnosis: cardiac arrhythmia, cerebrovascular accident, drug effect, nohelia emotional response, GI bleed, , pseudo seizure, seizure, sepsis, transient ischemic attack, vasovagal episode. Data reviewed: vital signs, nurses notes, lab test result(s), EKG, radiologic studies, CT scan, plain films. Consideration of Admission/Observation Escalation of care including admission/observation considered. I considered the following discharge prescriptions or medication management in the emergency department Medications were administered in the Emergency Department. See MAR. Independent interpretation of the following test(s) in the Emergency Department EKG: See my EKG interpretation above. Test considered but Not performed: MRI: no mri brain. Historians other than the Patient: Friend: friend , informed. Care significantly affected by the following chronic conditions: Obesity. Counseling: I had a detailed discussion with the patient and/or guardian regarding the historical points, exam findings, and any diagnostic results supporting the discharge/admit diagnosis, lab results, radiology results, the need for outpatient follow up, a family practitioner. 07/14 18:04 Order name: Acetaminophen; Complete Time: 19: [facility] 07/14 18:04 Order name: Basic Metabolic Panel; Complete Time: 19: [facility] 07/14 18:04 Order name: CBC with Diff; Complete Time: 19: [facility] 07/14 18:04 Order name: ETOH Level; Complete Time: 19:19 [facility] 07/14 18:04 Order name: Hepatic Function; Complete Time: 19: [facility] 07/14 18:04 Order name: PT-INR; Complete Time: 19: [facility] 07/14 18:04 Order name: Ptt, Activated; Complete Time: 19:09 [facility] 07/14 18:04 Order name: Salicylate; Complete Time: 19:19 [facility] 07/14 18:04 Order name: Urinalysis w/ reflexes; Complete Time: 19:09 [facility] 07/14 18:04 Order name: Urine Drug Screen; Complete Time: 19:19 [facility] 07/14 18:04 Order name: Test, Serum [facility] 07/14 18:04 Order name: Lipase; Complete Time: 19:19 [facility] 07/14 18:11 Order name: glucometer results - FOR PT WITH NO ID em1 07/14 21:24 Order name: Lactate w/ 2H reflex if indic. EDWA 07/14 21:24 Order name: Magnesium EDWA 07/14 21:24 Order name: Phosphorus EDMS 07/14 21:24 Order name: Urinalysis w/ reflexes EDMS 07/14 21:24 Order name: Basic Metabolic Panel EDWA 07/14 21:24 Order name: Basic Metabolic Panel EDMS 07/14 21:24 Order name: CBC with Automated Diff EDMS 07/14 21:24 Order name: CBC with Automated Diff EDMS 07/14 21:24 Order name: Lipid Profile EDMS 07/14 21:24 Order name: Lipid Profile EDWA 07/14 18:06 Order name: CT Head Brain wo Cont; Complete Time: 19:31 [facility] 07/14 19:45 Order name: US Abdomen Limited [facility] 07/14 19:45 Order name: CT Abd/Pelvis - IV Contrast Only [facility] 07/14 18:04 Order name: EKG; Complete Time: 18:05 [facility] 07/14 18:04 Order name: EKG - Nurse/Tech; Complete Time: 18:10 [facility] 07/14 18:04 Order name: IV Saline Lock; Complete Time: 18:25 [facility] 07/14 18:04 Order name: Labs collected and sent; Complete Time: 18:25 [facility] 07/14 18:04 Order name: Suicide Screening ([place]); Complete Time: 22:03 [facility] 07/14 19:20 Order name: PO challenge: JUICE; Complete Time: 22:34 [facility] EC:10 Rate is 53 beats/min. Rhythm is regular. QRS [place] is Normal. [place] interval is normal. QRS nohelia interval is normal. QT interval is normal. No Q waves. T waves are Normal. No ST changes noted. Clinical impression: Sinus bradycardia and No evidence of ischemia. Interpreted by me. Reviewed by me. Administered Medications: 18:10 Drug: NS 0.9% IV 1000 ml IV at 1000 ml once; to be given as a bolus over 60 minutes rs5 Route: IV; Rate: 1000 ml; Site: right antecubital; 22:11 Follow up: Response: No adverse reaction; IV Status: Completed infusion; IV Intake: jb4 1000ml 19:45 Not Given (Duplicate Order): potassiumeffervescent tablet 50 meq PO once; dissolve in 4 nohelia ounces of water or juice 19:58 Drug: fentaNYL (PF) IVP 50 mcg IVP once Route: IVP; Site: right antecubital; jb4 22:10 Follow up: Response: No adverse reaction; Marked relief of symptoms jb4 19:58 Drug: Ondansetron IVP 4 mg IVP once; over 2 minutes Route: IVP; Site: right antecubital;jb4 22:11 Follow up: Response: No adverse reaction; Marked relief of symptoms jb4 19:58 Drug: Potassium Chloride IV 20 mEq IV at per protocol once; administer over 1-2 hours jb4 Route: IV; Rate: per protocol; Site: right antecubital; 21:58 Follow up: Response: No adverse reaction; IV Status: Completed infusion; IV Intake: jb4 100ml 22:09 Drug: Piperacillin-Tazobactam IVPB 3.375 grams IVPB once over 60 mins; (mix in NS 100 jb4 mL) Route: IVPB; Infused Over: 60 mins; Site: right antecubital; 22:34 Follow up: IV Status: Infusion continued upon admission jb4 Disposition Summary: 07/14/24 20:52 Hospitalization Ordered Notes: Hospitalization Status: Observation nohelia Provider: Prince nohelia Nichols Location: Telemetry/MedSur (observation) nohelia Condition: Stable nohelia Problem: new nohelia Symptoms: have improved nohelia Bed/Room Type: Standard nohelia Room Assignment: 228(07/14/24 21:30) rv1 Diagnosis - Acute cholecystitis nohelia - Other cholelithiasis with obstruction nohelia Discharge Instructions: - Discharge Summary Sheet nohelia - Potassium Content of Foods nohelia - Near-Syncope nohelia - Syncope nohelia - Near-Syncope, Ucli-[id number]-Grci nohelia - Hypokalemia nohelia Forms: - Medication Reconciliation Form nohelia - SBAR form nohelia - Leadership Thank You Letter [facility] Prescriptions: - Potassium Chloride 20 meq Oral Packet - take 1 packet ORAL route once daily 1 packet in 6 (six) ounces of water or nohelia juice; Take after meal; 14 packet; Refills: 0, Product Selection Permitted Signatures: Dispatcher [employer] EDMS Chicho Gilmore MD MD cha Bryson, James, RN RN jb4 Zulma Zayas rv1 Jack Stewart RN RN rs5 Corrections: (The following items were deleted from the chart) 18:05 18:05 ACETAMINOPHEN+C.LAB.BRZ ordered. EDMS EDMS 18:05 18:05 BASIC METABOLIC PANEL+C.LAB.BRZ ordered. EDMS EDMS 18:05 18:05 CBC+H.LAB.BRZ ordered. EDMS EDMS 18:05 18:05 ETHANOL+C.LAB.BRZ ordered. EDMS EDMS 18:05 18:05 HEPATIC FUNCTION+C.LAB.BRZ ordered. EDMS EDMS 18:05 18:05 PROTIME (+INR)+COAG.LAB.BRZ ordered. EDMS EDMS 18:05 18:05 PTT, ACTIVATED+COAG.LAB.BRZ ordered. EDMS EDMS 18:05 18:05 SALICYLATE+C.LAB.BRZ ordered. EDMS EDMS 18:05 18:05 Urinalysis+U.LAB.BRZ ordered. EDMS EDMS 18:05 18:05 URINE DRUG SCREEN+UC.LAB.BRZ ordered. EDMS EDMS 18:05 18:05 TEST, SERUM+SC.LAB.BRZ ordered. EDMS EDMS 18:05 18:05 LIPASE+C.LAB.BRZ ordered. EDMS EDMS 21:30 20:52 nohelia rv1
--- NOTE | 2024-07-14 20:52 | ER ---
Nurse's Notes [facility] Name: Rolanda Santiago Age: 29 yrs Sex: Female : 1995 Arrival Date: 07/14/2024 Time: 17:56 Bed 6 Private MD: Diagnosis: Acute cholecystitis;Other cholelithiasis with obstruction Presentation: 07/14 18:20 Chief complaint: Friend and/or Co-Worker states: We were having seafood and she had one jb4 alcoholic beverage. She started saying she felt like she needed to vomit so we left and started heading home and she passed out. Coronavirus screen: At this time, the client does not indicate any symptoms associated with coronavirus-19. Ebola Screen: No symptoms or risks identified at this time. Initial Sepsis Screen: Does the patient meet any 2 criteria? RR > 20 per min. Does the patient have a suspected source of infection? No. Patient's initial sepsis screen is negative. Risk Assessment: Do you want to hurt yourself or someone else? Patient reports no desire to harm self or others. Onset of symptoms was July 14, 2024. Transition of care: patient was not received from another setting of care. 18:20 Method Of Arrival: Stretcher jb4 18:20 Acuity: LAURA 2 jb4 Triage Assessment: 18:23 General: Appears distressed, uncomfortable, ill, Behavior is agitated, anxious, fussy, jb4 restless. Pain: Complains of pain in epigastric area and left upper quadrant Pain radiates to chest. Neuro: Level of Consciousness is awake, confused, Oriented to person, situation. Cardiovascular: Patient's skin is warm and dry. Respiratory: Airway is patent Respiratory effort is even, labored, Respiratory pattern is symmetrical, hyperventilation. Derm: Skin is intact, Skin is pink, warm \T\ dry. Musculoskeletal: Circulation, motion, and sensation intact. Range of motion: intact in all extremities. Historical: - Allergies: 18:23 No Known Drug Allergies; jb4 - PMHx: 18:23 None; jb4 - PSHx: 18:23 Tummy tuck; D\T\C; jb4 - Immunization history:: Adult Immunizations unknown. - Family history:: not pertinent. - Social history:: Smoking status: unknown Patient uses alcohol, occasionally. Screenin:29 [facility] ED Fall Risk Assessment (Adult) History of falling in the last 3 months, jb4 including since admission No falls in past 3 months (0 pts) Confusion or Disorientation No (0 pts) Intoxicated or Sedated No (0 pts) Impaired Gait No (0 pts) Mobility Assist Device Used No (0 pt) Altered Elimination No (0 pt) Score/Fall Risk Level 0 - 2 = Low Risk Oriented to surroundings, Maintained a safe environment. Abuse screen: Denies threats or abuse. Nutritional screening: No deficits noted. Tuberculosis screening: No symptoms or risk factors identified. Assessment: 18:35 Reassessment: see triage note. jb4 18:44 Reassessment: Pt assisted to bedside commode, gave urine sample continues to report jb4 pain to epigastric area radiating to chest, provider is aware, no orders at this time. 20:02 Reassessment: Patient appears in no apparent distress at this time. Patient and/or jb4 family updated on plan of care and expected duration. Pain level reassessed. Patient is alert, oriented x 3, equal unlabored respirations, skin warm/dry/pink. 21:00 Reassessment: Patient appears in no apparent distress at this time. Patient and/or jb4 family updated on plan of care and expected duration. Pain level reassessed. Patient is alert, oriented x 3, equal unlabored respirations, skin warm/dry/pink. 22:22 Reassessment: Patient appears in no apparent distress at this time. Patient and/or jb4 family updated on plan of care and expected duration. Pain level reassessed. Patient is alert, oriented x 3, equal unlabored respirations, skin warm/dry/pink. 23:27 Reassessment: Patient appears in no apparent distress at this time. Patient and/or jb4 family updated on plan of care and expected duration. Pain level reassessed. Patient is alert, oriented x 3, equal unlabored respirations, skin warm/dry/pink. Vital Signs: 18:20 BP 114 / 86; Pulse 52; Resp 28; Pulse Ox 96% on R/A; jb4 20:02 BP 108 / 71; Pulse 58; Resp 16; Pulse Ox 96% on R/A; jb4 21:00 BP 120 / 88; Pulse 111; Resp 16; Pulse Ox 93% on R/A; jb4 22:00 BP 126 / 91; Pulse 65; Resp 16; Temp 97.7; Pulse Ox 96% on R/A; jb4 Maxwell Coma Score: 18:10 Eye Response: spontaneous(4). Motor Response: obeys commands(6). Verbal Response: nohelai oriented(5). Total: 15. ED Course: 17:58 Patient arrived in ED. bd 17:58 Chicho Gilmore MD is Attending Physician. nohelia 18:00 Inserted saline lock: 20 gauge in right antecubital area, using aseptic technique. rs5 Blood collected. Flushed with 10 mL NS. 18:10 EKG done, by ED staff, reviewed by Chicho Gilmore MD. em1 18:23 Triage completed. jb4 18:23 Arm band placed on right wrist. jb4 18:25 Salicylate Sent. jb4 18:25 Ptt, Activated Sent. jb4 18:25 PT-INR Sent. jb4 18:25 Hepatic Function Sent. jb4 18:25 ETOH Level Sent. jb4 18:25 CBC with Diff Sent. jb4 18:25 Basic Metabolic Panel Sent. jb4 18:25 Acetaminophen Sent. jb4 18:35 Deandre James, RN is Primary Nurse. jb4 19:13 CT Head Brain wo Cont In Process Unspecified. EDMS 20:12 US Abdomen Limited In Process Unspecified. EDMS 20:35 CT Abd/Pelvis - IV Contrast Only In Process Unspecified. EDMS 20:51 Prince Nichols MD is Hospitalizing Provider. nohelia 22:29 No provider procedures requiring assistance completed. Patient admitted, IV remains in jb4 place. 22:29 Patient has correct armband on for positive identification. Placed in gown. Bed in low jb4 position. Call light in reach. Side rails up X 1. Provided Education on: plan of care. Administered Medications: 18:10 Drug: NS 0.9% IV 1000 ml IV at 1000 ml once; to be given as a bolus over 60 minutes rs5 Route: IV; Rate: 1000 ml; Site: right antecubital; 22:11 Follow up: Response: No adverse reaction; IV Status: Completed infusion; IV Intake: jb4 1000ml 19:45 Not Given (Duplicate Order): potassiumeffervescent tablet 50 meq PO once; dissolve in 4 nohelia ounces of water or juice 19:58 Drug: fentaNYL (PF) IVP 50 mcg IVP once Route: IVP; Site: right antecubital; jb4 22:10 Follow up: Response: No adverse reaction; Marked relief of symptoms jb4 19:58 Drug: Ondansetron IVP 4 mg IVP once; over 2 minutes Route: IVP; Site: right antecubital;jb4 22:11 Follow up: Response: No adverse reaction; Marked relief of symptoms jb4 19:58 Drug: Potassium Chloride IV 20 mEq IV at per protocol once; administer over 1-2 hours jb4 Route: IV; Rate: per protocol; Site: right antecubital; 21:58 Follow up: Response: No adverse reaction; IV Status: Completed infusion; IV Intake: jb4 100ml 22:09 Drug: Piperacillin-Tazobactam IVPB 3.375 grams IVPB once over 60 mins; (mix in NS 100 jb4 mL) Route: IVPB; Infused Over: 60 mins; Site: right antecubital; 22:34 Follow up: IV Status: Infusion continued upon admission jb4 Medication: 23:27 VIS not applicable for this client. jb4 Intake: 21:58 IV: 100ml; Total: 100ml. jb4 22:11 IV: 1000ml; Total: 1100ml. jb4 Outcome: 20:52 Decision to Hospitalize by Provider. nohelia 22:29 Admitted to Med/surg accompanied by nurse, via wheelchair, room 228, with chart, jb4 22:29 Condition: stable 22:29 Discharge instructions given to patient, Instructed on the need for admit, Demonstrated understanding of instructions, 23:27 Patient left the ED. jb4 Signatures: Dispatcher [employer] EDMS Lelo Pederson Corey, MD MD cha Martinez, Eric em1 Deandre James RN RN jb4 Jack Stewart RN RN rs5 Corrections: (The following items were deleted from the chart) 22:29 22:00 BP 126 / 91; Pulse 65bpm; Resp 16bpm; Pulse Ox 96% RA; jb4 jb4
--- NOTE | 2024-07-14 20:58 | RAD REPORT ---
EXAMINATION: CT ABDOMEN AND PELVIS WITH CONTRAST CLINICAL INDICATION: Female, 29 years old.ABD PAIN TECHNIQUE: CT abdomen and pelvis was performed, after the administration of IV contrast, as per [facility] protocol. Axial, sagittal and coronal reconstructions were obtained. One or more of the following dose reduction techniques were used: Automated exposure control, adjustment of the mA and/o r kV according to patient size, and/or iterative reconstruction. Unless otherwise specified, incidental findings do not require dedicated imaging follow-up. [id number]. COMPARISON: 11/25/2017 FINDINGS: LOWER CHEST: No acute process identified.No significant pericardial effusion. UPPER GI: No significant abnormality. LIVER: No significant focal abnormality. GALLBLADDER/BILE DUCTS: Distended gallbladder but no gallbladder wall thickening or pericholecystic i nflammatory changes identified.? PANCREAS: No mass, ductal dilation, or herb-pancreatic fluid. SPLEEN: Unremarkable. ADRENALS: No adrenal masses. KIDNEYS AND URETERS: No hydronephrosis.No suspicious renal mass.No renal or ureteral calculi. ABDOMINAL AORTA AND OTHER VESSELS: Normal caliber aorta and IVC. PERITONEUM: No abnormal free fluid. No free air. LYMPH NODES: No pathologic lymphadenopathy. ABDOMINAL WALL: Small fat containing umbilical hernia. SMALL BOWEL/COLON: Small bowel has normal course and caliber. No colonic wall thickening or pericolon ic inflammatory changes.Normal appendix. URINARY BLADDER: Underdistended but grossly unremarkable. REPRODUCTIVE ORGANS: No pathologic process. MUSCULOSKELETAL: No acute or suspicious osseous abnormality. ADDITIONAL FINDINGS: None. IMPRESSION: No acute or significant abnormalities seen in the abdomen or pelvis. Distended gallbladder but no per icholecystic inflammatory changes to suggest acute cholecystitis.
[2024-07-14] MEDS ORDERED: ACETAMINOPHEN 500 MG TAB PO PRN (21:20)
[2024-07-14] MEDS ORDERED: SODIUM CHLORIDE 0.9% 10ML INJ IV PRN (21:22)
--- NOTE | 2024-07-14 21:27 | P.HP ---
Certification for Inpatient Patient admitted to: Observation With expected LOS: <2 Midnights Practitioner: I am a practitioner with admitting privileges, knowledge of patient current condition, hospital course, and medical plan of care. Services: Services provided to patient in accordance with Admission requirements found in Title 42 Section 412.3 of the Code of Federal Regulations Patient History Date of Service: 07/14/24 Reason for admission: Abdominal pain History of Present Illness: Patient is a 29-year-old female with no past medical history. She presented to the ER complaining of epigastric abdominal pain. Patient has no fever or chills. Workup in the ER included an abdominal ultrasound which revealed cholelithiasis with findings suggestive of acute cholecystitis. Bose sign positive. She had a potassium of 2.9. Rest of her blood work was unremarkable. Dr. Sol has been consulted by ER. Patient will be n.p.o. after midnight for cholecystectomy tomorrow. Allergies No Known Drug Allergies Allergy (Unverified 06/16/14 19:55) Unknown No Known Allergies Allergy (Uncoded 11/25/17 02:52) Unknown Physical Examination - Physical Exam General: In no apparent distress, Obese HEENT: Atraumatic, Normocephalic Respiratory: Clear to auscultation bilaterally, Normal air movement Cardiovascular: No edema, Normal pulses, Regular rate/rhythm, Normal S1 S2 Gastrointestinal: Soft and benign, Other (Epigastric tenderness), Tenderness Neurological: Normal speech - Studies Laboratory Data (last 24 hrs) 07/14/24 07/14/24 07/14/24 18:00 18:00 18:00 WBC 11.40 H Hgb 12.3 Hct 37.9 Plt Count 354 PT 11.3 INR 1.08 APTT 26.7 Sodium 139 Potassium 2.9 L BUN 15 Creatinine 0.80 Glucose 99 Total Bilirubin 0.3 AST 22 ALT 18 Alkaline Phosphatase 59 Lipase 30 Assessment and Plan - Problems (Diagnosis) (1) Acute calculous cholecystitis Current Visit: Yes Status: Acute (2) Obesity Current Visit: Yes Status: Acute - Plan Assessment Patient is a 29-year-old female with no past medical history except for obesity. She presented to the ER complaining of epigastric abdominal pain. She was found to have acute calculus cholecystitis based on abdominal ultrasound. During my evaluation, patient's pain was controlled. Surgery has been consulted for cholecystectomy. Acute calculus cholecystitis Obesity Plan: Will admit under observation Normal saline infusion and empiric antibiotics with Zosyn Multimodal pain regimen, antiemetics and acid suppression therapy N.p.o. after midnight for cholecystectomy tomorrow Dr. Sol from surgery has been consulted - Advance Directives Does patient have a Living Will: No Does patient have a Durable POA for Healthcare: No
[2024-07-14] MEDS ORDERED: NA CHLORIDE 0.9% 100 ML ONE (21:36)
[2024-07-14] MEDS ORDERED: PIPERACIL/TAZO 3.375 GM VIAL IV ONE (21:36)
[2024-07-15] MEDS: NA CHLORIDE 0.9% 1,000 ML IV SCH (00:03)
[2024-07-15] MEDS: PANTOPRAZOLE 40 MG INJ IVP SCH (00:05)
[2024-07-15] MEDS: HYDROMORPHONE HCL 1 MG/ML INJ IV PRN (00:05)
[2024-07-15 03:22] VITALS: BMI 37.8
[2024-07-15] MEDS: ONDANSETRON 4 MG/2 ML VIAL IV PRN (05:00)
[2024-07-15] MEDS: LORazepam 2 MG/ML VIAL IV ONE (05:39)
[2024-07-15 05:58] LABS: Absolute Eosinophils 0.1 K/uL (0-0.5); Absolute Lymphocytes (CBC) 2.1 K/uL (0.7-4.9); Absolute Monocytes 0.7 K/uL (0.1-1.3); Absolute Neutrophil 5.6 K/uL (1.8-8.0); Basophils % 0.3 % (0-1.3); Eosinophils % 1.1 % (0-4.4); Hematocrit 33.5 % (36.0-45.0); Hemoglobin 11.1 g/dL (12.0-15.0); Lymphocytes % 25.1 % (15.3-44.8); MCH 27.2 pg (27.0-35.0); MCHC 33.1 g/dL (32.0-36.0); MCV 82.2 fL (80-100); MPV 7.5 fL (7.6-11.3); Monocytes % 8.1 % (3.3-12.3); Neutrophils % 65.4 % (41.7-73.7); Platelets 250 thou/uL (152-406); RBC Red Blood Cell Count 4.08 M/uL (3.86-4.86); Red Cell Distribution Width 16.4 % (12.1-15.2)
[2024-07-15 06:19] LABS: Magnesium 2.4 mg/dL (1.6-2.4); Phosphorus 3.1 mg/dL (2.5-4.9)
[2024-07-15 06:24] LABS: Anion Gap 3.6 mEq/L (5.0-15.0); Potassium 3.6 mEq/L (3.5-5.1)
--- NOTE | 2024-07-15 06:47 | P.PN ---
Date of Service: 07/15/24 Subjective: reports some nausea/vomiting overnight and again this morning pain continues ~same reports ER visit for similar symptoms ~1 year ago afebrile ROS: 10 point ROS as noted above, otherwise negative Physical Exam: GEN: Alert, NAD CV: Regular rate and rhythm, no edema Pulm: Nonlabored respirations on room air, clear bilaterally ABD: soft, epigastric tenderness, nondistended Integumentary: No rashes Neuro: Normal speech, normal affect Problem List: Acute calculus cholecystitis Acute calculus cholecystitis on admission, presents with epigastric abdominal pain. She was eating seafood, had 1 alcoholic drink and felt nauseous. Reports passing out on the way home from eating. reports ER visit for similar symptoms ~1 year ago. abdominal u/s at the time noted cholelithiasis. Abdominal u/s (07/14): Cholelithiasis with findings that could indicate acute cholecystitis including positive sonographic Bose sign and distended gallbladder CT abdomen (07/14): Distended gallbladder but no pericholecystic inflammatory changes CT head (07/14): no acute findings Dr. Sol, general surgeon consulted to eval NPO for possible lap abram continue empiric zosyn (07/15-) continue IV protonix, IVF repeat labs pending pain contril VTE: SCD Code: Full Dispo: Home Pending surgical recs / surgery Time Spent Managing Pts Care (In Minutes): 55
[2024-07-15] MEDS: PIPER TAZO 3.375 GM in NA CHLORIDE 0.9% 100 ML IV SCH (09:03)
[2024-07-15 11:13] LABS: ALT/SGPT 233 U/L (13-56); AST/SGOT 342 U/L (15-37); Albumin 2.8 g/dL (3.4-5.0); Albumin/Globulin Ratio 0.8 (1.1-1.8); Alkaline Phosphatase 76 U/L (45-117); Bilirubin Direct < 0.2 mg/dL (0-0.2); Bilirubin Indirect, Calculated 0.2 mg/dL (0.2-0.8); Bilirubin Total 0.4 mg/dL (0.2-1.0); Globulin 3.6 g/dL (2.3-3.5); Protein, Total 6.4 g/dL (6.4-8.2)
[2024-07-15] MEDS: Ringers Lactate 1,000 ML IV ONE ×2 (12:18→15:48)
[2024-07-15] MEDS ORDERED: MIDAZOLAM HCL 2 MG/2 ML INJ ONE (13:01)
[2024-07-15] MEDS ORDERED: LIDOCAINE 2% MPF 5 ML VIAL ONE (13:01)
[2024-07-15] MEDS ORDERED: ONDANSETRON 4 MG/2 ML VIAL ONE (13:01)
[2024-07-15] MEDS ORDERED: FENTANYL CITR 100 MCG/2 ML ONE ×2 (13:01→14:19)
[2024-07-15] MEDS ORDERED: propofoL 200 MG/20 ML VIAL IV ONE (13:01)
[2024-07-15] MEDS ORDERED: ROCURONIUM 50 MG/5 ML VIAL IV ONE (13:01)
[2024-07-15] MEDS: SUGAMMADEX SODIUM 200 MG/2 ML VIAL IV ONE (13:05)
[2024-07-15] MEDS ORDERED: GLYCOPYRROLATE 0.2 MG/ML SYR ONE (13:58)
--- NOTE | 2024-07-15 14:01 | P.CNS ---
Date of Consult: 07/15/24 PC: I was asked to see this 29-year-old female in regards to right upper quadrant abdominal pain. HPC: Patient presented to the emergency room with severe right upper quadrant abdominal pain, causing her a lot of discomfort, and nausea. Has had this pain off and on for the last 4 years, but this is one of the worst episodes yet. PMHx: 4 para 4 Social Hx: No known allergies Sys R: No cough, wheeze, shortness of breath. No chest pain or palpitations. She has been having a lot of nausea. She gets this pain off and on every couple of months or so. No urinary complaints O/E: Awake alert vital signs are stable HEENT: Not jaundiced Chest: Chest movement equal bilaterally Abd: Soft but tender in the upper abdomen Ogden: Intact Data: Patient has ultrasound demonstrating gallstones Impression: Acute on chronic cholecystitis with cholelithiasis, biliary colic Plan: I will taken the operating room for laparoscopic cholecystectomy with a cholangiogram. The risks of this procedure have been discussed. The possibility of bleeding, infection, injury to bile ducts blood vessels and intestines has been described. The possible need for an open end or further surgeries and procedures was discussed. She understands and wants us to proceed.
[2024-07-15] MEDS ORDERED: dexAMETHasone 10 MG/ML VIAL ONE (14:06)
[2024-07-15] MEDS ORDERED: KETOROLAC 30 MG/ML INJ ONE (14:55)
[2024-07-15] MEDS: ONDANSETRON 4 MG/2 ML VIAL ONE (15:25)
[2024-07-15] MEDS: HYDROMORPHONE HCL 1 MG/ML INJ ONE (15:25)
--- NOTE | 2024-07-15 15:25 | P.OP ---
Preoperative diagnosis: Acute on chronic cholecystitis with cholelithiasis, biliary colic Postoperative diagnosis: the same Primary procedure: Laparoscopic cholecystectomy Secondary procedure: Cholangiogram Anesthesia: General Estimated blood loss: Less than 10 cc Specimen: 1 gallbladder and content Operative Technique: The patient brought the operating room and placed supine on the table. After the induction of adequate general endotracheal anesthesia, the area of the abdomen was prepped with a DuraPrep solution, and she was draped in the usual aseptic manner. Attention was turned towards the umbilicus. A subumbilical incision was made just below the patient's scar. This is brought down through the skin and subcutaneous tissue. The Visiport was now used to enter the peritoneal cavity and created pneumoperitoneum to approximately 12 mmHg. Under direct vision a 5 mm trocar was placed in the upper midline and 2 fives on the right lateral side we were now able to visualize the liver and gallbladder. The patient was placed in reverse Trendelenburg with the table air planed to the left side. A grasper was placed on the fundus of the gallbladder. The contents of the gallbladder were now aspirated using an aspirating needle. Another was placed down by Herring's pouch. Applying lateral traction we were able to dissect out and expose the edematous tissue around the cystic duct and artery. The cystic duct was milked with a [place] grasper. A clip was then placed between the junction of the gallbladder with the cystic duct. An opening was made into the cystic duct. We now did our cholangiogram. As we passed the Cholangiocath into the cystic duct we could see there were a marked amount of competent valves inside the cystic duct itself. We finally got the catheter to go in and passed it all the way down to the common bile duct. A cholangiogram was now done. It demonstrated slight hanging for a second and then good flow of contrast into the duodenum. The catheter was pulled back. We could see that there were no other filling defects noted although some air bubbles were introduced on the films after the catheter had been completely removed from the cystic duct and we were still floor silas at the time. At this point the catheter having been removed, the cystic duct was clipped with 5 mm clips and divided in the usual manner. Another placed on the cystic artery. Electrocautery was now used to divide the rest of the structures and dissect the gallbladder free from the liver bed. The gallbladder was now placed into an Endo Catch and brought out through the umbilical trocar site due to the amount of stone debris inside we did have to easily widen the umbilical trocar site. This was done using the nasal spreaders. The gallbladder and its contents were now removed. The Endo Close was then used to approximate the fascial defect at the umbilicus. The pneumoperitoneum was then collapsed after having aspirated all the irrigating fluid from the peritoneal cavity. [place] were then applied to the skin. At the end of the procedure she was in a stable condition was sent to the recovery room. Needle sponge instrument count were correct. Complications: None Transferred to: Recovery Room Condition: Good
[2024-07-15] MEDS: FENTANYL CITR 100 MCG/2 ML ONE (15:30)
--- NOTE | 2024-07-15 15:44 | RAD REPORT ---
EXAM: Cholangiogram Oper-Xray OR HISTORY: abd pain COMPARISON: None FINDINGS: A total of 10 images were sent to PACS, during a fluoroscopically guided Lap abram with IOC . No radiologist was involved in protocoling or performance of the study, and no radiologist was present for the duration of the procedure. No interpretation of the saved images will be provided. Total fluoroscopy time: 0.3 minutes. IMPRESSION: Documentation of fluoroscopy use as above. Transcribed Date/Time: 07/15/2024 3:43 PM
[2024-07-15] MEDS: MIDAZOLAM HCL 2 MG/2 ML INJ ONE (15:50)
[2024-07-15] MEDS: HYDROCODONE/APAP 7.5/325 MG TAB PO PRN (16:23)
[2024-07-15 22:06] VITALS: O2SAT 100
[2024-07-16 06:33] LABS: Absolute Lymphocytes (CBC) 1.8 K/uL (0.7-4.9); Absolute Monocytes 0.7 K/uL (0.1-1.3); Absolute Neutrophil 7.8 K/uL (1.8-8.0); Basophils % 0.3 % (0-1.3); Eosinophils % 0.1 % (0-4.4); Hematocrit 33.7 % (36.0-45.0); Hemoglobin 11.2 g/dL (12.0-15.0); Lymphocytes % 17.6 % (15.3-44.8); MCH 27.7 pg (27.0-35.0); MCHC 33.2 g/dL (32.0-36.0); MCV 83.5 fL (80-100); MPV 7.7 fL (7.6-11.3); Monocytes % 6.8 % (3.3-12.3); Neutrophils % 75.2 % (41.7-73.7); Nucleated Red Blood Cells % 0.1 % (0-0); Platelets 279 thou/uL (152-406); RBC Red Blood Cell Count 4.04 M/uL (3.86-4.86); Red Cell Distribution Width 16.5 % (12.1-15.2)
--- NOTE | 2024-07-16 08:51 | P.PN ---
Date of Service: 07/16/24 Subjective: continues with abdominal soreness/tenderness slightly worse this morning needing frequent pain meds nausea improving afebrile ROS: 10 point ROS as noted above, otherwise negative Physical Exam: GEN: Alert, NAD CV: Regular rate and rhythm, no edema Pulm: Nonlabored respirations on room air, clear bilaterally ABD: soft, epigastric tenderness, nondistended Integumentary: No rashes Neuro: Normal speech, normal affect Problem List: Acute calculus cholecystitis s/p lap abram (07/15) Elevated LFTs Acute calculus cholecystitis s/p lap abram (07/15) Elevated LFTs on admission, presents with epigastric abdominal pain. She was eating seafood, had 1 alcoholic drink and felt nauseous. Reports passing out on the way home from eating. reports ER visit for similar symptoms ~1 year ago. abdominal u/s at the time noted cholelithiasis. Abdominal u/s (07/14): Cholelithiasis with findings that could indicate acute cholecystitis including positive sonographic Bose sign and distended gallbladder CT abdomen (07/14): Distended gallbladder but no pericholecystic inflammatory changes CT head (07/14): no acute findings Dr. Sol, general surgeon consulted s/p lap abram (07/15) continue empiric zosyn (07/15-) continue IV protonix, IVF LFTs elevated 07/15 pain contril VTE: SCD Code: Full Dispo: Home Pending better pain control / tolerating diet Time Spent Managing Pts Care (In Minutes): 55
[2024-07-16] MEDS: POTASSIUM 25 MEQ EFFERV TAB PO ONE (20:52)
[2024-07-17 04:46] LABS: Hemoglobin 10.9 g/dL (12.0-15.0); MCH 27.7 pg (27.0-35.0); MCV 83.8 fL (80-100); MPV 7.7 fL (7.6-11.3); Platelets 256 thou/uL (152-406); RBC Red Blood Cell Count 3.94 M/uL (3.86-4.86); Red Cell Distribution Width 16.8 % (12.1-15.2)
--- NOTE | 2024-07-17 09:40 | P.PN ---
Date of Service: 07/17/24 Subjective: abdominal pain/tenderness worse today abdominal pains worsened with movement/breathing +intermittent nausea/vomiting no BM or flatus yet ROS: 10 point ROS as noted above, otherwise negative Physical Exam: GEN: Alert, NAD CV: Regular rate and rhythm, no edema Pulm: Nonlabored respirations on room air, clear bilaterally ABD: soft, epigastric tenderness, nondistended Integumentary: No rashes Neuro: Normal speech, normal affect Problem List: Acute calculus cholecystitis s/p lap abram (07/15) Elevated LFTs Acute calculus cholecystitis s/p lap abram (07/15) Elevated LFTs on admission, presents with epigastric abdominal pain. She was eating seafood, had 1 alcoholic drink and felt nauseous. Reports passing out on the way home from eating. reports ER visit for similar symptoms ~1 year ago. abdominal u/s at the time noted cholelithiasis. Abdominal u/s (07/14): Cholelithiasis with findings that could indicate acute cholecystitis including positive sonographic Bose sign and distended gallbladder CT abdomen (07/14): Distended gallbladder but no pericholecystic inflammatory changes CT head (07/14): no acute findings Dr. Sol, general surgeon consulted s/p lap abram (07/15) continue empiric zosyn (07/15-) continue IV protonix, IVF LFTs elevated 07/15 pain control repeat KUB, check CMP VTE: SCD Code: Full Dispo: Home Pending better pain control / tolerating diet Time Spent Managing Pts Care (In Minutes): 55
[2024-07-17 09:54] LABS: Albumin 3.1 g/dL (3.4-5.0); Albumin/Globulin Ratio 0.9 (1.1-1.8); Anion Gap 6.9 mEq/L (5.0-15.0); Bilirubin Total 0.3 mg/dL (0.2-1.0); Globulin 3.4 g/dL (2.3-3.5); Potassium 3.9 mEq/L (3.5-5.1); Protein, Total 6.5 g/dL (6.4-8.2)
[2024-07-17] MEDS: DOCUSATE NA 100 MG CAP PO ONE (11:40)
--- NOTE | 2024-07-17 12:02 | RAD REPORT ---
EXAM: XR Abdomen 1 View (KUB) HISTORY: [facility] s/p abram, eval ileus COMPARISON: None FINDINGS: Single view of the abdomen shows gaseous distention of the transverse colon and proximal de scending colon. Moderate stool burden along the ascending colon. No suspicious calcifications are seen. The bones are unremarkable. IMPRESSION: Gaseous distention of the colon with moderate stool burden as above. Nonobstructive small bowel gas pattern as above.
--- NOTE | 2024-07-17 13:02 | P.DS ---
Admission Date: 07/16/24 Discharge Date: 07/17/24 Disposition: ROUTINE DISCHARGE Discharge Condition: GOOD Reason for Admission: Abdominal pain Consultations: General surgery - Dr. Sol Brief History of Present Illness: 29yo F, PMH: no past medical history. She presented to the ER complaining of epigastric abdominal pain. Patient has no fever or chills. Workup in the ER included an abdominal ultrasound which revealed cholelithiasis with findings suggestive of acute cholecystitis. Bose sign positive. She had a potassium of 2.9. Rest of her blood work was unremarkable. Dr. Sol has been consulted by ER. Patient will be n.p.o. after midnight for cholecystectomy tomorrow. Hospital Course: Problem List: Acute calculus cholecystitis s/p lap abram (07/15) Elevated LFTs , improving Physician discharge instructions: Patient presented with worsening epigastric abdominal pain secondary to acute cholecystitis with cholelithiasis. Abdominal ultrasound noted cholelithiasis, distended gallbladder. CT abdomen noted distended gallbladder but no pericholecystic inflammatory changes. Patient was evaluated by Dr. Sol, general surgeon, and underwent lap abram with Cholangiogram on 07/15. Abdominal pain slowly improved with time post operatively. Patient ambulating and tolerating diet without issues on day of discharge. Patient was feeling better, afebrile without leukocytosis, nausea improving, and was deemed stable for discharge. Repeat KUB on day of discharge noted some gaseous distention, mild colonic stool burden otherwise okay. She reported flatus on day of discharge after ambulation. Patient is to complete 1 week of Augmentin on discharge. She states she typically gets yeast infections when taking antibiotics. Will send prescription for Diflucan. Recommend low fat diet for next few days and can slowly ease back in to regular diet. Avoid fatty/greasy goods. Recommend daily over the counter stool softener. Advised to follow up with Dr. Sol in office in 1 week. Obtain clearance to return to work / restriction from Dr. Sol on follow up. Medications: Augmentin x1 week Diflucan [place] as needed for pain Zofran as needed for nausea Follow up: PCP 3-[address] Sol in office in ~1 week Please call to schedule / confirm appointments No heavy lifting > 10 lbs for 4-6 weeks. Okay to shower with running water. Do not submerge wound underwater. Physical Exam: GEN: Alert, NAD CV: Regular rate and rhythm, no edema Pulm: Nonlabored respirations on room air, clear bilaterally ABD: soft, mild epigastric tenderness, nondistended Integumentary: No rashes Neuro: Normal speech, normal affect Vital Signs/Physical Exam: Temp Pulse Resp BP Pulse Ox 97.5 F 55 14 113/73 100 07/17/24 08:00 07/17/24 08:00 07/17/24 12:46 07/17/24 08:00 07/17/24 08:00 Laboratory Data at Discharge: WBC 7.80 thou/uL (4.3-10.9) 07/17/24 04:22 Hgb 10.9 g/dL (12.0-15.0) L 07/17/24 04:22 Hct 33.0 % (36.0-45.0) L 07/17/24 04:22 Plt Count 256 thou/uL (152-406) 07/17/24 04:22 PT 11.3 SECONDS (9.4-12.5) 07/14/24 18:00 INR 1.08 07/14/24 18:00 APTT 26.7 SECONDS (24.3-36.9) 07/14/24 18:00 Sodium 140 mEq/L (136-145) 07/17/24 09:26 Potassium 3.9 mEq/L (3.5-5.1) 07/17/24 09:26 BUN 15 mg/dL (7-18) 07/17/24 09:26 Creatinine 0.84 mg/dL (0.55-1.02) 07/17/24 09:26 Glucose 96 mg/dL (74-106) 07/17/24 09:26 Phosphorus 3.1 mg/dL (2.5-4.9) 07/15/24 05:49 Magnesium 2.4 mg/dL (1.6-2.4) 07/15/24 05:49 Total Bilirubin 0.3 mg/dL (0.2-1.0) 07/17/24 09:26 AST 63 U/L (15-37) H 07/17/24 09:26 ALT 136 U/L (13-56) H 07/17/24 09:26 Alkaline Phosphatase 69 U/L (45-117) 07/17/24 09:26 Triglycerides 45 mg/dL (<150) 07/15/24 05:49 Cholesterol 131 mg/dL (<200) 07/15/24 05:49 HDL Cholesterol 53 mg/dL (40-60) 07/15/24 05:49 Cholesterol/HDL Ratio 2.47 07/15/24 05:49 Lipase 30 U/L (13-75) 07/14/24 18:00 Home Medications: Amox/Clavulanate [Augmentin 875-125 Tab] 1 tab PO BID 7 Days #14 tab 07/17/24 Fluconazole 150 mg PO SEECOM #2 tab 07/17/24 Hydrocodone 7.5/APAP 325 [[place] 7.5/325 mg*] 1 tab PO Q6H PRN #15 tab 07/17/24 Ondansetron [Zofran] 4 mg PO Q6H PRN #15 tab 07/17/24 New Medications: Amox/Clavulanate [Augmentin 875-125 Tab] 1 tab PO BID 7 Days #14 tab Fluconazole 150 mg PO SEECOM #2 tab Hydrocodone 7.5/APAP 325 [[place] 7.5/325 mg*] 1 tab PO Q6H PRN #15 tab PRN Reason: Pain Scale 5-7 (Moderate) Ondansetron [Zofran] 4 mg PO Q6H PRN #15 tab PRN Reason: Nausea / Vomiting Physician Discharge Instructions: Physician discharge instructions: Patient presented with worsening epigastric abdominal pain secondary to acute cholecystitis with cholelithiasis. Abdominal ultrasound noted cholelithiasis, distended gallbladder. CT abdomen noted distended gallbladder but no pericholecystic inflammatory changes. Patient was evaluated by Dr. Sol, general surgeon, and underwent lap abram with Cholangiogram on 07/15. Abdominal pain slowly improved with time post operatively. Patient ambulating and tolerating diet without issues on day of discharge. Patient was feeling better, afebrile without leukocytosis, nausea improving, and was deemed stable for discharge. Repeat KUB on day of discharge noted some gaseous distention, mild colonic stool burden otherwise okay. She reported flatus on day of discharge after ambu lation. Patient is to complete 1 week of Augmentin on discharge. She states she typically gets yeast infections when taking antibiotics. Will send prescription for Diflucan. Recommend low fat diet for next few days and can slowly ease back in to regular diet. Avoid fatty/greasy goods. Recommend daily over the counter stool softener. Advised to follow up with Dr. Sol in office in 1 week. Obtain clearance to return to work / restriction from Dr. Sol on follow up. Medications: Augmentin x1 week Diflucan [place] as needed for pain Zofran as needed for nausea Follow up: PCP 3-[address] Sol in office in ~1 week Please call to schedule / confirm appointments No heavy lifting > 10 lbs for 4-6 weeks. Okay to shower with running water. Do not submerge wound underwater. Followup: NONE,NONE [Primary Care Provider] - Time spent managing pt's care (in minutes): 45
[2024-07-17 13:13] VITALS: BP 133/78; TEMP 97.8
--- NOTE | 2024-07-21 13:18 | EKG ---
Test Date: 2024-07-14 Test Time: 18:06:59 Artillery Specialist: STEPHANIE MEASUREMENT RESULTS: Intervals: Rate: 53 NC: 196 QRSD: 86 QT: 422 QTc: 395 [place]: P: 57 NC: 196 QRS: 87 T: 58 INTERPRETIVE STATEMENTS: Sinus bradycardia Otherwise normal ECG Compared to ECG 09/02/2022 01:36:22 Sinus arrhythmia no longer present Electronically Signed On 07-21-24 13:06:33 CHANGE CONTROL MANAGER by Baljinder Amaro
== END 2024-07-17 14:00 | disposition home or self-care (01) | DRG 419 ==
LOC: ER 17:56 → ERHOLD 21:20 → 2ND 22:32 → OBSVTOIN 07-16 17:53
PROVIDERS: ADMIT Internal Medicine; ATTEND Hospitalist
PROC: BF121ZZ Fluoroscopy of Gallbladder using Low Osmolar Contrast (ICD-10-PCS; 2024-07-15)
PROC: 0FT44ZZ Resection of Gallbladder, Percutaneous Endoscopic Approach (ICD-10-PCS; principal; 2024-07-15 12:30)
DX: K80.12 Calculus of gallbladder with acute and chronic cholecystitis without obstruction (principal); E87.6 Hypokalemia; E66.9 Obesity, unspecified; R79.89 Other specified abnormal findings of blood chemistry; Z68.37 Body mass index [BMI] 37.0-37.9, adult; Z79.899 Other long term (current) drug therapy
CPT/HCPCS: 36415; 70450; 74018; 74177; 74300; 76705; 80048; 80053; 80061; 80076; 80143; 80179; 80307; 81001; 82077; 82947; 83605; 83690; 83735; 84100; 84703; 85025; 85027; 85610; 85730; 88304; 93005; 94010; 96361; 96365; 96367; 96375; 99285; G0378; J1100; J1171; J2003; J2250; J2405; J2470; J2543; J2704; J3010; J3480; J7030; J7120; Q9967